=== PATIENT | female | born 1945 | race Caucasian/White ===

== ENCOUNTER → 2016-09-11 | Outpatient (CLI) | payer OTHER ==
[~2016-09-11] MED LIST: ALBUAER2 INH; ATOR10TA88 PO; CETI10TA10 PO; CHOL1CAP57 PO; CITA20TA4 PO; CYAN100020 PO; CYCL5TAB PO; EPP3/2 IM; FLUT0.0529; FLUT1INH7 INH; GARL1TAB8; LEVO100T PO; LISI-793 PO; METR1GEL3 TOP; MONT1TAB5 PO; MULT-845 PO; NPHA; OMEP20CA9 PO; [UNRECOGNIZED DRUG - OTHER] OPB
--- NOTE | 2016-09-11 16:12 | MAMMOGRAPHY REPORT ---
BILATERAL DIGITAL SCREENING MAMMOGRAM WITH CAD: 09/11/2016 CLINICAL HISTORY: Routine screening. Patient has no complaints. TECHNIQUE: Current study was also evaluated with a Computer Aided Detection (CAD) system. Bilatera l CC and MLO views were obtained. COMPARISON: Comparison is made to exams dated: 02/23/2015 mammogram, 08/02/2012 mammogram, 08/12/2011 mammogram, 07/30/2011 mammogram, 07/29/2010 mammogram, and 07/25/2009 mammogram - [facility]. BREAST COMPOSITION: There are scattered areas of fibroglandular density in both breasts. FINDINGS: No suspicious masses, calcifications, or areas of architectural distortion are noted in e ither breast. There has been no significant interval change compared to prior exams. Bilateral haja gn appearing calcifications are again noted. A biopsy marker clip is again noted in the left upper outer quadrant. IMPRESSION: ACR BI-RADS CATEGORY 2: BENIGN There is no mammographic evidence of malignancy. A 1 year screening mammogram is recommended. The p atient will receive written notification of the results. Approximately 10% of breast cancers are not detected with mammography. A negative mammographic repor t should not delay biopsy if a clinically suggestive mass is present. Lizette Hsu M.D. /:09/11/2016 14:41:47 Therapeutic Recreation Leader: Karina MIRANDA(Seb)(Cailin)([place]), [facility] letter sent: Normal 1/2 BI-RADS Code: ACR BI-RADS Category 2: Benign
== END | disposition home or self-care (01) ==
LOC: C.MAMM 13:49
PROVIDERS: ATTEND Family Medicine
DX: Z12.31 Encounter for screening mammogram for malignant neoplasm of breast (principal)

== ENCOUNTER → 2017-02-10 | Outpatient (CLI) | payer OTHER ==
[~2017-02-10] MED LIST changes: +ATOR10TA82 PO; -ATOR10TA88 PO; -MULT-845 PO; -[UNRECOGNIZED DRUG - OTHER] OPB
--- NOTE | 2017-02-10 11:03 | DIAGNOSTIC IMAGING REPORT ---
MRI OF THE CERVICAL SPINE WITHOUT CONTRAST CLINICAL HISTORY: Cervical radiculopathy. Neck pain radiating into both upper extremities. COMPARISON: Cervical spine radiographs October 14, 2013. TECHNIQUE: Utilizing a 1.5 Andreea magnet and dedicated coil, multiplanar, multiecho imaging of the cervical spine was performed without IV contrast. FINDINGS: Alignment of the cervical spine is anatomic. Vertebral body heights are maintained. There is no intracanalicular mass or fluid collection. Cervical cord signal and caliber are normal. Visualized portions of the posterior fossa are unremarkable. Paravertebral soft tissues are unremarkable. A 1.4 cm T2 hyperintense posterior left first rib lesion is indeterminate although may reflect a hemangioma. C2-C3: The central canal and neural foramen are patent. C3-C4: There is mild disc bulge. There is minimal narrowing of the central canal. There is mild narrowing of the right neural foramen due to facet arthrosis. C4-C5: There is minimal disc bulge with a tiny central disc protrusion. There is minimal narrowing of the central canal. There is mild narrowing of both neural foramen. C5-C6: There is disc bulge with osteophyte formation. There is mild narrowing of the central canal. There is severe right and moderate left neural foraminal stenosis due to facet arthrosis and uncovertebral hypertrophy. C6-C7: There is disc bulge. There is mild narrowing of the central canal. There is mild narrowing of both neural foramen. C7-T1: Central canal and neural foramen are patent. IMPRESSION: 1. Mild multilevel central canal stenosis as described above due to disc bulges with osteophyte formation. 2. Normal cervical cord signal and caliber. 3. Moderate to severe bilateral neural foraminal stenosis at C5-C6. Electronically signed by: Devyn Beyer M.D. 02/10/2017 11:02 AM Dictated Date/Time: 02/10/2017 10:53 AM
== END | disposition home or self-care (01) ==
PROVIDERS: ATTEND Physician Assistant Medical
DX: M54.12 Radiculopathy, cervical region (principal)

== ENCOUNTER → 2017-09-10 | Outpatient (CLI) | payer OTHER ==
[~2017-09-10] MED LIST changes: -CETI10TA10 PO; -GARL1TAB8; -LEVO100T PO
[2017-09-10 12:47] LABS: ALBUMIN 4.1 gm/dl (3.4-5.0); ALT/SGPT 47 U/L (12-78); BLOOD UREA NITROGEN 13 mg/dl (7-18); CARBON DIOXIDE 24 mmol/L (21-32); CHOLESTEROL 217 mg/dl (0-200); CREATININE 0.85 mg/dl (0.60-1.20); GLUCOSE 91 mg/dl (70-99); POTASSIUM 4.1 mmol/L (3.5-5.1); SODIUM 136 mmol/L (136-145)
[2017-09-10 12:58] LABS: ALKALINE PHOSPHATASE 76 U/L (45-117); AST/SGOT 56 U/L (15-37); LDL CHOLESTEROL CALCULATED 125 mg/dl; TOTAL PROTEIN 7.3 gm/dl (6.4-8.2)
== END | disposition home or self-care (01) ==
LOC: C.LABBFT 08:55
PROVIDERS: ATTEND Internal Medicine
DX: Z00.00 Encounter for general adult medical examination without abnormal findings (principal); E03.9 Hypothyroidism, unspecified; E78.5 Hyperlipidemia, unspecified; I10 Essential (primary) hypertension; E55.9 Vitamin D deficiency, unspecified

== ENCOUNTER → 2017-09-14 | Outpatient (CLI) | payer OTHER ==
--- NOTE | 2017-09-15 07:51 | MAMMOGRAPHY REPORT ---
BILATERAL DIGITAL SCREENING MAMMOGRAM TOMOSYNTHESIS WITH CAD: 09/14/2017 CLINICAL HISTORY: Routine screening. Patient has no complaints. TECHNIQUE: Breast tomosynthesis in addition to standard 2D mammography was performed. Current study was also evaluated with a Computer Aided Detection (CAD) system. COMPARISON: Comparison is made to exams dated: 09/11/2016 mammogram, 02/23/2015 mammogram, 08/02/2012 m ammogram, 08/12/2011 mammogram, 07/30/2011 mammogram, and 07/29/2010 mammogram - [facility]. BREAST COMPOSITION: There are scattered areas of fibroglandular density in both breasts. FINDINGS: There are diffuse bilateral benign coarse and rim calcifications in the breasts. Stable me tallic biopsy marker in the left upper outer quadrant. No suspicious mass, architectural distortion or cluster of suspicious microcalcifications is seen. IMPRESSION: ACR BI-RADS CATEGORY 1: NEGATIVE There is no mammographic evidence of malignancy. A 1 year screening mammogram is recommended. The pa tient will receive written notification of the results. Approximately 10% of breast cancers are not detected with mammography. A negative mammographic report should not delay biopsy if a clinically suggestive mass is present. Griselda Roldan M.D. ay/:09/14/2017 16:54:43 Wool Spotter: Crystal Li, [facility] letter sent: Normal 1/2 BI-RADS Code: ACR BI-RADS Category 1: Negative
== END | disposition home or self-care (01) ==
LOC: C.MAMM 13:13
PROVIDERS: ATTEND Internal Medicine
DX: Z12.31 Encounter for screening mammogram for malignant neoplasm of breast (principal)

== ENCOUNTER 2022-05-19 08:06 | Inpatient (IN) ==
--- NOTE | 2022-04-29 16:17 | PAT Medication Instructions ---
Medication Instructions Date of Service April 29, 2022 Home Medications Medication Instructions Recorded baclofen 10 mg tablet 10 mg PO Q8H PRN pain/spasm #60 08/13/ tabs albuterol sulfate 90 mcg/actuation 2 puff inhalation Q6H PRN 11/26/21 aerosol inhaler shortness of breath or wheezing #8.5 grams oxycodone-acetaminophen 5 mg-325 1 - 2 tab PO Q6H PRN pain #15 tabs 01/27/ mg tablet (Percocet) cetirizine 10 mg tablet (Zyrtec) 5 mg PO QAM cyanocobalamin (vitamin B-12) 1,000 mcg tablet (Vitamin B-12) 1,000 mcg PO QAM epinephrine 0.3 mg/0.3 mL injection, auto-injector (EpiPen) 0.3 mg IM Q3H PRN omeprazole 20 mg tablet,delayed release 20 mg PO QAM naphazoline 0.025 %-pheniramine 0.3 % eye drops 1 drp ophthalmic (eye) UD PRN cholecalciferol (vitamin D3) 25 mcg (1,000 unit) capsule (Vitamin D3) 1,000 unit PO QAM baclofen 10 mg tablet 10 mg PO Q8H PRN metronidazole 0.75 % topical gel 1 applic topical QAM albuterol sulfate 90 mcg/actuation aerosol inhaler 2 puff inhalation Q6H PRN oxycodone-acetaminophen 5 mg-325 mg tablet (Percocet) 1 - 2 tab PO Q6H PRN benzonatate 100 mg capsule 100 - 200 mg PO TID PRN citalopram 20 mg tablet 20 mg PO QAM fluticasone furoate 100 mcg-vilanterol 25 mcg/dose inhalation powder 1 ea inhala tion QAM fluticasone propionate 50 mcg/actuation nasal spray,suspension (Flonase Allergy Relief) 1 spray intranasal BID levothyroxine 88 mcg tablet 88 mcg PO QAM lisinopril 30 mg tablet 30 mg PO QAM montelukast 10 mg tablet 10 mg PO QAM rosuvastatin 10 mg tablet (Crestor) 10 mg PO HS Continue as directed epinephrine 0.3 mg/0.3 mL injection, auto-injector (EpiPen) 0.3 mg IM Q3H PRN(if needed) STOP taking 24 hours before surgery metronidazole 0.75 % topical gel 1 applic topical QAM DO NOT take the morning of surgery cetirizine 10 mg tablet (Zyrtec) 5 mg PO QAM cyanocobalamin (vitamin B-12) 1,000 mcg tablet (Vitamin B-12) 1,000 mcg PO QAM cholecalciferol (vitamin D3) 25 mcg (1,000 unit) capsule (Vitamin D3) 1,000 unit PO QAM baclofen 10 mg tablet 10 mg PO Q8H PRN benzonatate 100 mg capsule 100 - 200 mg PO TID PRN lisinopril 30 mg tablet 30 mg PO QAM montelukast 10 mg tablet 10 mg PO QAM Take morning of surgery With a small sip of water, OTHERWISE NOTHING TO EAT OR DRINK AFTER MIDNIGHT: omeprazole 20 mg tablet,delayed release 20 mg PO QAM naphazoline 0.025 %-pheniramine 0.3 % eye drops 1 drp ophthalmic (eye) UD PRN(if needed) albuterol sulfate 90 mcg/actuation aerosol inhaler 2 puff inhalation Q6H PRN(use if needed; please bring with you to hospital day of surgery if possible) oxycodone-acetaminophen 5 mg-325 mg tablet (Percocet) 1 - 2 tab PO Q6H PRN(if needed) citalopram 20 mg tablet 20 mg PO QAM fluticasone furoate 100 mcg-vilanterol 25 mcg/dose inhalation powder 1 ea inhal ation QAM fluticasone propionate 50 mcg/actuation nasal spray,suspension (Flonase Allergy Relief) 1 spray intranasal BID levothyroxine 88 mcg tablet 88 mcg PO QAM Take evening before surgery baclofen 10 mg tablet 10 mg PO Q8H PRN(if needed) albuterol sulfate 90 mcg/actuation aerosol inhaler 2 puff inhalation Q6H PRN(if needed) oxycodone-acetaminophen 5 mg-325 mg tablet (Percocet) 1 - 2 tab PO Q6H PRN(if needed) benzonatate 100 mg capsule 100 - 200 mg PO TID PRN(if needed) fluticasone propionate 50 mcg/actuation nasal spray,suspension (Flonase Allergy Relief) 1 spray intranasal BID rosuvastatin 10 mg tablet (Crestor) 10 mg PO HS Other Notes If you have any questions please call us at [phone] or [phone] or [phone] or [phone]
--- NOTE | 2022-05-06 11:26 | Anesthesiology Consultation ---
Date of Service May 06, 2022 Assessment & Plan (1) Encounter for pre-operative examination: - COVID screening: Per assessment on 05/06/2022: Travel screen negative, no known COVID-19 positive contacts or current COVID-19 related symptoms in past 2 weeks. Pt vaccinated. To surgeon's discretion if preop COVID testing needed. Chart Review Chart Review: Acceptable Risk for Surgery and Patient seen in Pre Admission Testing Teaching & Discussion Pre-Anesthesia Teaching/Discussion Notes: Instructed NPO after midnight before surgery, except medications with 15 cc of water. Medication instructions provided according to the PAT guidelines. History Surgery Operation Date: 05/19/22 10:35 Proposed Procedures p C6-C7 Anterior Cervical Discectomy and Fusion, C5 Corpectomy, Spinal Cord Monitoring - Yves Serrano DO Height/Weight Height: 5 ft 3 in Weight: 77.111 kg Allergies Allergy/AdvReac Type Severity Reaction Status Date / Time adhesive Allergy Intermediate TAPE ON Verified 04/29/22 13:18 EYES CAUSED "EYES TO SWELL SHUT" aspirin Allergy Unknown MAKES HER Verified 04/29/22 13:18 SHAKE shrimp Allergy Unknown UNKNOWN Verified 04/29/22 13:18 celecoxib [From Celebrex] AdvReac Mild GI bleed Verified 05/06/22 12:02 Unclassified Drugs Allergy Intermediate Venison-causes Uncoded 04/29/22 13:18 hives Medications Home Medications Medication Instructions Recorded Confirmed Last Taken cetirizine 10 mg tablet (Zyrtec) 5 mg PO QAM 09/26/18 04/29/22 Unknown cyanocobalamin (vitamin B-12) 1,000 mcg PO QAM 09/26/18 04/29/22 Unknown 1,000 mcg tablet (Vitamin B-12) epinephrine 0.3 mg/0.3 mL 0.3 mg IM Q3H PRN Allergic Reaction 09/26/18 04/29/22 Unknown injection, auto-injector (EpiPen) omeprazole 20 mg tablet,delayed 20 mg PO QAM 09/26/18 04/29/22 Unknown release naphazoline 0.025 %-pheniramine 1 drp ophthalmic (eye) UD PRN 1 07/31/19 04/29/22 Unknown 0.3 % eye drops cholecalciferol (vitamin D3) 25 1,000 unit PO QAM 04/18/20 04/29/22 Unknown mcg (1,000 unit) capsule (Vitamin D3) baclofen 10 mg tablet 10 mg PO Q8H PRN pain/spasm #60 08/13/21 04/29/22 Unknown tabs metronidazole 0.75 % topical gel 1 applic topical QAM 11/19/21 04/29/22 Unknown albuterol sulfate 90 mcg/actuation 2 puff inhalation Q6H PRN 11/26/21 04/29/22 Unknown aerosol inhaler shortness of breath or wheezing #8.5 grams oxycodone-acetaminophen 5 mg-325 1 - 2 tab PO Q6H PRN pain #15 tabs 01/27/22 04/29/22 Unknown mg tablet (Percocet) benzonatate 100 mg capsule 100 - 200 mg PO TID PRN cough 04/29/22 04/29/22 Unknown citalopram 20 mg tablet 20 mg PO QAM 04/29/22 04/29/22 Unknown fluticasone furoate 100 1 ea inhalation QAM 04/29/22 04/29/22 Unknown mcg-vilanterol 25 mcg/dose inhalation powder fluticasone propionate 50 1 spray intranasal BID 04/29/22 04/29/22 Unknown mcg/actuation nasal spray,suspension (Flonase Allergy Relief) levothyroxine 88 mcg tablet 88 mcg PO QAM 04/29/22 04/29/22 Unknown lisinopril 30 mg tablet 30 mg PO QAM 04/29/22 04/29/22 Unknown montelukast 10 mg tablet 10 mg PO QAM 04/29/22 04/29/22 Unknown rosuvastatin 20 mg tablet 20 mg PO DAILY #90 tabs 05/07/22 Unknown Past Medical History Medical History (Updated 05/06/22 @ 12:08 by Melissa Lou PA-C) Actinic keratosis Asthma maintenance inhaler-rescue inhaler use occasional during seasonal exacerbations-last rescue inhaler use 02/2022 Cervical facet syndrome Cervicalgia Chronic low back pain Chronic reflux esophagitis Claustrophobia with full mask Depression Diverticulosis of colon Essential tremor Hx of gastric ulcer treated Hyperlipidemia Hypertension controlled, stable per pt Hypothyroidism Malignant melanoma of skin lt. upper shoulder-removed Rosacea Seborrheic keratosis Tubular adenoma of colon Patient denies h/o stroke, seizures, heart attack, heart failure, DM, blood clots or blood transfusions. Exercise / Class Metabolic Activity II 4-5 Yardwork/Stairs/Walk up hill (denies CP or SOB with 1 FOS) Past Family History Family History Father Heart disease Mother Stroke syndrome Past Surgical History Surgical History (Updated 05/06/22 @ 12:07 by Melissa Lou PA-C) H/O breast surgery R duct repair-denies limb restriction H/O cataract extraction Bilateral History of carpal tunnel release of both wrists History of colectomy Sigmoid History of esophagogastroduodenoscopy (EGD) History of hernia repair X3 History of hysterectomy History of lymph node dissection of left axilla History of tonsillectomy Hx of colonoscopy S/P medial meniscal repair R knee Past Anesthesia History No Hx of Anesthesia Complications and No Family Hx of Anesthesia Complications History of PONV No Hx of Motion Sickness and History of PONV (with surgeries > 40 yrs ago) Social History Smoking Status: Never smoker Do You Dip or Chew Tobacco: No Hx Alcohol Use: No Hx Substance Use: No substance use type: does not use Review of Systems Snoring, denies witnessed apneas. Patient denies chest pain, shortness of breath, dyspnea on exertion, fever, chills, cough, wheezing, or palpitations. Physical Exam Vital Signs Vitals BP 109/65 P 61 TEMP 98.2 SP02 98% on RA RESP 17 Physical Limited cervical extension range of motion without pain TMD 3.5 finger breadths Mallampati Score 1 Dentition: intact, pt unsure of chipped teeth; denies loose teeth, caps/crowns, implants or bridges Lungs: normal respiratory effort. Clear throughout to auscultation, no adventitious breath sounds Cardiac: regular rate and rhythm, no murmurs noted Carotid arteries: negative bruit bilat Lab Results Anesthesia Preop Results Results Anesthesia Widget: WBC 9.77 K/ul (4.8-10.8) 05/06/22 Hgb 14.6 g/dl (12.0-16.0) 05/06/22 Hct 43.0 % (34.1-44.9) 05/06/22 Plt 288 K/uL (130-400) 05/06/22 Na 133 mmol/L (136-145) L 05/06/22 K 4.4 mmol/L (3.5-5.1) 05/06/22 Cl 101 mmol/L (98-107) 05/06/22 CO2 23 mmol/L (21-32) 05/06/22 BUN 15 mg/dl (6-23) 05/06/22 Creat 0.84 mg/dl (0.6-1.2) 05/06/22 Glucose Level 94 mg/dl (70-99(Fasting)) 05/06/22 PT 11.1 Seconds (9.0-12.0) 05/06/22 PTT 26.3 Seconds (21.0-31.0) 05/06/22 INR 1.0 (0.9-1.1) 05/06/22 Urine Color Yellow 05/06/22 Urine Appearance Clear (Clear) 05/06/22 Urine pH 5.5 (4.5-7.5) 05/06/22 Urine Specific [place] 1.013 (1.000-1.030) 05/06/22 Urine Protein Negative (Negative) 05/06/22 Urine Glucose (UA) Negative (Negative) 05/06/22 Urine Ketones Negative (Negative) 05/06/22 Urine Blood Negative (Negative) 05/06/22 Urine Nitrite Negative (Negative) 05/06/22 Urine Bilirubin Negative (Negative) 05/06/22 Urine Urobilinogen Negative (Negative) 05/06/22 Urine Leukocyte Esterase Negative (Negative) 05/06/22 Blood Type O Positive 05/06/22 Antibody Screen NEGATIVE 05/06/22 Testing Electrocardiogram Date: 05/06/22 NSR, rate 63 bpm Chest X-Ray Date: 05/06/22 PA and lateral chest radiographs are compared to study dated 12/13/2014. The heart is top normal for projection atherosclerotic calcification of the thoracic aorta. The pulmonary vasculature is noncongested. Chronic interstitial thickening is similar to previous. There is bibasilar scarring/atelectasis. No airspace consolidation or pleural effusion is identified. There is no pneumothorax. The skeletal structures are osteopenic. The bony thorax appears intact. IMPRESSION: No active disease in the chest. Cervical Spine Date: 04/22/22 MRI There is grade 1 anterolisthesis of C4-C5. C2-C3: Unremarkable. C3-C4: There is facet arthropathy and a small broad-based posterior disc bulge resulting in mild bilateral neural foraminal stenosis. C4-C5: Small posterior disc bulge and anterolisthesis results in moderate canal stenosis, AP diameter 8 mm, with moderate to severe bilateral neuroforaminal stenosis. C5-C6: Broad-based posterior disc bulge results in moderate canal stenosis, AP diameter 8 mm. There is severe bilateral neuroforaminal stenosis. C6-C7: Broad-based posterior disc bulge results in moderate canal stenosis, AP diameter 8 mm. There is moderate bilateral neuroforaminal stenosis. C7-T1: Unremarkable. The spinal ligaments are intact, without evidence of disruption or abnormal signal intensity. The spinal cord is normal in signal intensity and there is no evidence of cord edema. There is no evidence of an extradural, intradural, ex tramedullary or intramedullary lesion. Visualized soft tissues are normal. Visualized brain parenchyma is normal. Multilevel degenerative changes without a moderate canal stenosis and severe bilateral neuroforaminal stenosis. Overall findings are minimally progressed from prior exam.
[~2022-05-19 08:06] MED LIST changes: +ACETAMINOPHEN 500 MG TAB PO SCH; -ALBUAER2 INH; -ATOR10TA82 PO; -CHOL1CAP57 PO; -CITA20TA4 PO; -CYAN100020 PO; -CYCL5TAB PO; -EPP3/2 IM; -FLUT0.0529; -FLUT1INH7 INH; +GABAPENTIN 300 MG CAP PO SCH; -LISI-793 PO; +LR 15ML/HR IV SCH; -METR1GEL3 TOP; -MONT1TAB5 PO; -NPHA; -OMEP20CA9 PO; +PROPOFOL IV EMULSION 10 MG/ML 100 ML VIAL IV ONE; +ceFAZolin 1000MG 1,000 MG/7.5 ML SYR IV SCH; +ceFAZolin 330 MG/ML 1 GM VIAL ONE
[2022-05-19] MEDS ORDERED: fentaNYL citrate 100 MCG/2 ML VIAL ONE ×3 (08:08→11:23)
[2022-05-19] MEDS ORDERED: LIDOCAINE 2% MPF LOCAL 5 ML VIAL INFIL ONE (08:08)
[2022-05-19] MEDS ORDERED: DEXAMETHASONE SOD INJ 4 MG/ML VIAL ONE (08:08)
[2022-05-19] MEDS ORDERED: ONDANSETRON INJ 2 MG/ML 2 ML VIAL ONE (08:08)
[2022-05-19] MEDS ORDERED: PROPOFOL IV EMULSION 10 MG/ML 20 ML VIAL IV ONE (08:08)
--- NOTE | 2022-05-19 09:23 | History & Physical Bridge Note ---
Date of Service May 19, 2022 History & Physical Bridge Note I have examined the patient, reviewed the History & Physical and in the interval since the performance of the History & Physical I have noted the following changes of clinical significance: no changes noted
--- NOTE | 2022-05-19 09:24 | History & Physical Report ---
Date of Service May 19, 2022 Assessment & Plan (1) Myelopathy concurrent with and due to spinal stenosis of cervical region: Plan: C6-C7 anterior cervical discectomy and fusion, C5 corpectomy History of Present Illness Chief Complaint: Neck and arm pain Primary Care Provider: Dayna Beyer MD This is a 68-year-old female presents above-mentioned diagnosis after failed course of nonoperative care is here for surgical invention. Allergies Allergy/AdvReac Type Severity Reaction Status Date / Time shrimp Allergy Severe Hives Verified 05/19/22 08:43 adhesive Allergy Intermediate TAPE ON Verified 05/19/22 08:42 EYES CAUSED "EYES TO SWELL SHUT" aspirin Allergy Unknown MAKES HER Verified 05/19/22 08:42 SHAKE prednisone AdvReac Severe Verified 05/19/22 08:42 celecoxib [From Celebrex] AdvReac Mild GI bleed Verified 05/19/22 08:42 Unclassified Drugs Allergy Intermediate Venison-causes Uncoded 05/19/22 08:42 hives Home Medications Medication Instructions Recorded Confirmed Type cetirizine 10 mg tablet (Zyrtec) 5 mg PO QAM 09/26/18 05/19/22 History cyanocobalamin (vitamin B-12) 1,000 mcg PO QAM 09/26/18 05/19/22 History 1,000 mcg tablet (Vitamin B-12) epinephrine 0.3 mg/0.3 mL 0.3 mg IM Q3H PRN Allergic Reaction 09/26/18 05/19/22 History injection, auto-injector (EpiPen) omeprazole 20 mg tablet,delayed 20 mg PO QAM 09/26/18 05/19/22 History release naphazoline 0.025 %-pheniramine 1 drp ophthalmic (eye) UD PRN 1 07/31/19 05/19/22 History 0.3 % eye drops cholecalciferol (vitamin D3) 25 1,000 unit PO QAM 04/18/20 05/19/22 History mcg (1,000 unit) capsule (Vitamin D3) baclofen 10 mg tablet 10 mg PO Q8H PRN pain/spasm #60 08/13/21 05/19/22 Rx tabs metronidazole 0.75 % topical gel 1 applic topical QAM 11/19/21 05/19/22 History albuterol sulfate 90 mcg/actuation 2 puff inhalation Q6H PRN 11/26/21 05/19/22 Rx aerosol inhaler shortness of breath or wheezing #8.5 grams oxycodone-acetaminophen 5 mg-325 1 - 2 tab PO Q6H PRN pain #15 tabs 01/27/22 05/19/22 Rx mg tablet (Percocet) benzonatate 100 mg capsule 100 - 200 mg PO TID PRN cough 04/29/22 05/19/22 History citalopram 20 mg tablet (Celexa) 20 mg PO QAM 04/29/22 05/19/22 History fluticasone furoate 100 1 ea inhalation QAM 04/29/22 05/19/22 History mcg-vilanterol 25 mcg/dose inhalation powder fluticasone propionate 50 1 spray intranasal BID 04/29/22 05/19/22 History mcg/actuation nasal spray,suspension (Flonase Allergy Relief) levothyroxine 88 mcg tablet 88 mcg PO QAM 04/29/22 05/19/22 History lisinopril 30 mg tablet 30 mg PO QAM 04/29/22 05/19/22 History montelukast 10 mg tablet 10 mg PO QAM 04/29/22 05/19/22 History (Singulair) rosuvastatin 20 mg tablet (Crestor) 20 mg PO DAILY 05/19/22 05/19/22 History Past Med/Surg History Medical History (Updated 05/19/22 @ 09:24 by Yves Serrano DO) Actinic keratosis Asthma maintenance inhaler-rescue inhaler use occasional during seasonal exacerbations-last rescue inhaler use 02/2022 Cervical facet syndrome Cervicalgia Chronic low back pain Chronic reflux esophagitis Claustrophobia with full mask Depression Diverticulosis of colon Essential tremor Hx of gastric ulcer treated Hyperlipidemia Hypertension controlled, stable per pt Hypothyroidism Malignant melanoma of skin lt. upper shoulder-removed Rosacea Seborrheic keratosis Tubular adenoma of colon Surgical History H/O breast surgery R duct repair-denies limb restriction H/O cataract extraction Bilateral History of carpal tunnel release of both wrists History of colectomy Sigmoid History of esophagogastroduodenoscopy (EGD) History of hernia repair X3 History of hysterectomy History of lymph node dissection of left axilla History of tonsillectomy Hx of colonoscopy S/P medial meniscal repair R knee Family History (Updated 05/12/22 @ 16:26 by Joie Jackson LPN) Father Heart disease Mother Stroke syndrome Asthma Cerebral aneurysm Aunt Ovarian cancer Denies family history of Prostate cancer Coronary heart disease Breast cancer Lung disease Social History Smoking Status: Never smoker Second Hand Exposure: Yes; Do You Dip or Chew Tobacco: No; Tobacco Cessation Education Requested by Patient: No Hx Alcohol Use: No Hx Substance Use: No Preferred Language: Maltese Communication Ability: Effective Legislators Required: No Beliefs That Will Affect Care: None Current Living Situation: Spouse Other Information That Helps Us Care for You: No Feels Safe at Home: Yes Safety Concerns: Feels Safe At This Time caffeine: Yes Physical Activity Frequency: Daily Physical Activity Frequency Comment: Active deep breathing, walking, stretching Seatbelt Use: always Sunscreen Use: Yes (Protective clothing/covering ) Assistive Devices: Glasses Assistive Devices Comment: walker/electric scooter for long distances only Physical Exam Physical Exam: Patient is alert and oriented Heart regular rhythm Lungs clear Results & Data Results & Data ([facility]) Vital Signs (Past 12 Hours) Vital Signs Temp Pulse Resp BP Pulse Ox O2 Del Method 05/19/22 08:51 37.1 C 76 18 157/84 H 97 Room Air
[2022-05-19] MEDS ORDERED: DEXAMETHASONE SOD INJ 4 MG/ML VIAL IV PRN (09:50)
[2022-05-19] MEDS ORDERED: METOCLOPRAMIDE HCL INJ 5 MG/ML 2 ML VIAL IV PRN ×2 (09:50→13:57)
[2022-05-19] MEDS ORDERED: ATROPINE SULFATE 0.1 MG/ML 10ML SYR IV PRN (09:50)
[2022-05-19] MEDS ORDERED: ePHEDrine sulfate 50 MG/ML AMP IV PRN (09:50)
[2022-05-19] MEDS ORDERED: FLOSEAL HEMOSTATIC MATRIX 10ML TOP ONE (10:28)
[2022-05-19] MEDS ORDERED: NEOSTIGMINE METHYLSULFATE 1 MG/ML 10ML VIAL ONE (10:59)
[2022-05-19] MEDS ORDERED: GLYCOPYRROLATE 0.2 MG/ML VIAL ONE (10:59)
--- NOTE | 2022-05-19 11:26 | Operative Report ---
Post Operative Report Pre & Post Diagnosis Operation Date: 05/19/22 10:05 Pre-Op Diagnosis: Cervical spinal stenosis with myeloradiculopathy Post-Op Diagnosis: Same I identified the patient and participated in the time-out.: Yes Procedure Operation Date: 05/19/22 10:05 Actual Procedures #1 anterior cervical corpectomy with bilateral foraminotomies C5. #2 anterior cervical discectomy with bilateral foraminotomies C6-C7. #3 placement of 21 mm peek cage at C4-C6 and 7 mm cage at C6-C7. #4 placement locally harvested morselized autograft combined with I factor in the interbody cages. #5 application of 5 complete and screws from C4-C7. Surgeon Yves Serrano, Armature Tester Aleta Yan Estimated Blood Loss 10 Findings Consistent with Post-Op Diagnosis Specimens None Indications This is a 77-year-old female presents with above-mentioned diagnosis after failed course of nonoperative care is here for the moment procedure. Description of Procedure Patient met with identified informed consent obtained. Patient was then taken to the operative suite underwent ablation placed in a supine position adjustable head [place] quality head. All bony prominences well-padded eyes inspected to ensure no external pressure placed upon the. This point anterior cervical spine was prepped and draped no sterile fashion. With assistance of fluoroscopy identified the C5-6 disc base and a transverse incision was placed along the right anterior aspect of the cervical spine overlying this region. Blunt dissection with assistance of bipolar electrocautery performed down to expose the anterior cervical spine from C4-C7. Self-retaining retractors placed. Then performed a complete discectomy of C4-C5 out to the uncovertebral joints bilaterally followed by C5-C6. [place] distracting pins were then placed in C4 and C6 to distract across the C5 vertebral body. A complete corpectomy of C5 was then performed including bilateral foraminotomies. Endplates were then burred to subcortical bleeding bone and a 21 mm peek cage filled with I factor and locally harvested morselized autograft tapped in position. Then proceeded to C6-C7. Again [place] distracting pins utilized to assist in visualization. Complete discectomy was performed to the uncovertebral joints bilaterally. Selwyn wongn performed bilateral foraminotomies and removed all posterior annular fibers and longitudinal ligament. Endplates burred to subcortical bleeding bone and 7 mm peek cage filled with I factor and locally harvested morselized autograft tapped in position. Distracting apparatus was removed and a 5 complete screws applied with the assistance of fluoroscopy. The incision was then copiously irrigated explored to ensure no damage to surrounding structures remaining bleeding. 10 round CARI drain inserted. The incision was then closed with 2 Vicryl in a fashion of 4 Monocryl for fascial closure. Steri-Strip sterile dressings placed. Patient will continue PACU stable condition. Please note spinal cord monitoring was utilized at the procedure no changes noted. Lastly Aleta Yan was present out the entire surgeon while the patient positioning complex portions of the surgery and fascial closure. I attest to the content of the Intraoperative Record and any orders documented therein. Any exceptions are noted below.
[2022-05-19] MEDS: HYDROmorphone INJ 2 MG/ML SYR/VIAL IV PRN ×4 (12:00→12:55)
--- NOTE | 2022-05-19 12:35 | Fluoroscopy Report ---
FL cervical 2-3V CLINICAL HISTORY: ACDF C4-7 C5 CORPECTOMY COMPARISON STUDY: None. FLUOROSCOPY TIME: 11 seconds. FINDINGS: 3 fluoroscopic spot images of the cervical spine demonstrate anterior cervical discectomy a nd fusion from C4 through C7 with a C5 corpectomy and bone graft. Hardware appears intact. There is a surgical sponge noted at the incision site within the anterior neck IMPRESSION: Fluoroscopic assistance provided for C4-C7 ACDF. ACT 112: Negative or not required by law. Electronically signed by: Fareed Bradley M.D. 05/19/2022 12:34 PM
--- NOTE | 2022-05-19 13:09 | Anesthesiology Progress Note ---
Date of Service May 19, 2022 Anesthesia Post Procedure Vital Signs Vital Signs: Temp Pulse Resp BP Pulse Ox O2 Del Method O2 Flow Rate 05/19/22 12:55 67 13 146/61 H 95 Nasal Cannula 2 05/19/22 12:45 69 15 146/66 H 94 Nasal Cannula 2 05/19/22 12:35 72 17 152/72 H 95 Nasal Cannula 2 05/19/22 12:25 68 15 156/75 H 94 Nasal Cannula 2 05/19/22 12:15 69 16 162/85 H 93 Nasal Cannula 2 05/19/22 11:55 68 15 179/105 H 98 Oxymask 6 05/19/22 11:45 76 19 184/91 H 97 Oxymask 10 05/19/22 12:05 70 18 177/88 H 98 Oxymask 6 05/19/22 11:37 36.5 C 79 16 160/103 H 95 Oxymask 10 05/19/22 08:51 37.1 C 76 18 157/84 H 97 Room Air Pain Intensity Right Shoulder: Pain Intensity: 3 Neck: Pain Intensity: 4 Transfer of Care Handoff Completed per policy Notes Mental Status: alert / awake / arousable and participated in evaluation Patient Amnestic to Procedure: Yes Nausea / Vomiting: adequately controlled Pain: adequately controlled Airway Patency, RR, SpO2: stable & adequate BP & HR: stable & adequate Hydration State: stable & adequate Anesthetic Complications: no major complications apparent and Pt Satisfied with anesthetic care
[2022-05-19] MEDS ORDERED: RACEPINEPHRINE 2.25% NEBU SOLN 0.5 ML VIAL INH PRN (13:57)
[2022-05-19] MEDS ORDERED: ALBUTEROL HFA 8 GM INHALER INH PRN (13:57)
[2022-05-19] MEDS ORDERED: BACLOFEN 10 MG TAB PO PRN (13:57)
[2022-05-19] MEDS ORDERED: HYDROmorphone INJ 1 MG/ML SYRINGE IV PRN (13:57)
[2022-05-19] MEDS ORDERED: FAMOTIDINE 20 MG TAB PO PRN (13:57)
[2022-05-19] MEDS ORDERED: dexAMETHasone 8 MG in SYRINGE 0 ML IV PRN (13:57)
[2022-05-19] MEDS ORDERED: ACETAMINOPHEN 1,000 MG/100 ML VIAL IV PRN (13:57)
[2022-05-19] MEDS ORDERED: ONDANSETRON INJ 2 MG/ML 2 ML VIAL IV PRN (13:57)
[2022-05-19] MEDS ORDERED: NALOXONE HCL 0.4 MG/1 ML VIAL/CARP IV PRN (13:57)
[2022-05-19] MEDS ORDERED: MAGNESIUM HYDROXIDE SUSP 30 ML UDC PO PRN (13:57)
[2022-05-19] MEDS ORDERED: HYDROmorphone INJ 0.5 MG/0.5 ML SYR IV PRN (13:57)
[2022-05-19] MEDS ORDERED: hydrOXYzine HCl 25 MG TAB PO PRN (13:57)
[2022-05-19] MEDS ORDERED: PROMETHAZINE HCL 12.5 MG in SODIUM CHLORIDE 0.9% 50 ML IV PRN (13:57)
[2022-05-19] MEDS ORDERED: bisacodyL 10 MG SUPP PR PRN (13:57)
[2022-05-19] MEDS ORDERED: traMADol HCL 50 MG TABLET PO PRN (13:57)
[2022-05-19] MEDS ORDERED: NAPHAZOLIN/PHENIRAMIN OPH SOLN 75 DROPS/5 ML BTL OP PRN (13:57)
[2022-05-19] MEDS ORDERED: LORazepam 0.5 MG TAB PO PRN (13:57)
[2022-05-19] MEDS ORDERED: diphenhydrAMINE Capsule 25 MG CAP PO PRN (13:57)
[2022-05-19] MEDS ORDERED: LORazepam 0.5 MG in SYRINGE 0.25 ML IV PRN (13:57)
[2022-05-19] MEDS ORDERED: BENZONATATE 100 MG CAPSULE PO PRN (13:57)
[2022-05-19] MEDS ORDERED: SOD PHOSPHATE/SOD BIPHOSPHATE ENEMA 132 ML BTL PR PRN (13:57)
[2022-05-19] MEDS ORDERED: ALUMINUM/MAGNESIUM SUSP 30 ML UDC PO PRN (13:57)
[2022-05-19] MEDS ORDERED: ONDANSETRON 4 MG OD TAB PO PRN (13:57)
[2022-05-19] MEDS: SODIUM CHLORIDE 0.9% 1000ML 1,000 ML IV SCH (16:40)
--- NOTE | 2022-05-19 17:01 | Hospitalist Consultation ---
Date of Consultation May 19, 2022 Assessment & Plan (1) Myelopathy concurrent with and due to spinal stenosis of cervical region: Tisha Gilbert is a 77-year-old female with a past medical history of hypertension, chronic reflux esophagitis, depression, hypothyroidism, hyperlipidemia, and myelopathy due to cervical stenosis who presented for scheduled cervical spine surgery with Dr. Serrano. We have been consulted for medication management. Cervical myelopathy s/p C6-C7 anterior cervical discectomy and fusion, C5 corpectomy 05/19 Pain control, DVT prophylaxis per primary team Ambulation restrictions per primary team History of asthma 2 L postanesthesia/postop nasal cannula requirement without wheezing/rales, suspect atelectasis Continue albuterol as needed Continue fluticasonevilanterol inhaled or formulary equivalent Continue montelukast Continue incentive spirometry to minimize atelectasis No wheezing or evidence of acute exacerbation Hypertension May resume lisinopril 30 mg tomorrow if renal function at baseline Hyperlipidemia -Resume rosuvastatin tomorrow Hypothyroidism -Continue Synthroid GERD Omeprazole converted to Protonix. Continue Protonix daily Anxiety/depression - Continue citalopram 20 mg p.o. every morning. Note this could contribute to mild hyponatremia but would not recommend changing at this time Hyponatremia Mild, chronic Urine studies/osmolality ordered May progress to discharge with outpatient follow-up as long as greater than 1 30; urine osmolality/serum osmolality/urine sodium ordered to evaluate for SIADH No history of heart disease/ID/CHF/arrhythmia/valvular disease No history of diabetes. BMP in morning DVT prophylaxis: Per primary team (2) Impaired fasting glucose: (3) Asthma: (4) Hypertension: (5) Chronic reflux esophagitis: (6) Depression: (7) Hypothyroidism: (8) Hyperlipidemia: History of Present Illness Attending Physician: Yves Serrano, DO History of Present Illness Tisha Gilbert is a 77-year-old female with a past medical history of hypertension, chronic reflux esophagitis, depression, hypothyroidism, hyperlipidemia, and myelopathy due to cervical stenosis who presented for scheduled cervical spine surgery with Dr. Serrano. We have been consulted for medication management. No leukocytosis, preop hemoglobin 14.6, coags normal, preop sodium 133, potassium normal, creatinine with normal baseline and preop creatinine 0.85, hemoglobin A1c 5.8%, triglycerides 654 cholesterol 168, LDL 85, UA bland, COVID- negative, EKG 05/2022 normal sinus rhythm with QTC [address] segment changes Seen at the bedside in the afternoon. She reports she feels well after surgery. Has no pain, is not sure if it is just the anesthetic but notes she is hopeful that she will continue to have no pain. She reports she did not know how much pain she was actually in until it was gone. Denies chest pain, chest pressure, shortness of breath, lightheadedness, nausea, vomiting, diarrhea. Denies numbness and tingling. Does endorse a intermittent allergy cough this time of year which is at its baseline, with no change. No wheezing. Discussed incentive spirometry use, patient agreeable. Does not wish to use flutter valve. Reviewed medications, she did not take her lisinopril today. No history of heart disease/ID/CHF/arrhythmia/valvular disease No history of diabetes Medical History: Reviewed Medications: Reviewed Surgical History: Reviewed Allergies: Reviewed Social History: Reviewed Code Status:Full Allergies Allergy/AdvReac Type Severity Reaction Status Date / Time shrimp Allergy Severe Hives Verified 05/19/22 08:43 adhesive Allergy Intermediate TAPE ON Verified 05/19/22 08:42 EYES CAUSED "EYES TO SWELL SHUT" aspirin Allergy Unknown MAKES HER Verified 05/19/22 08:42 SHAKE prednisone AdvReac Severe Verified 05/19/22 08:42 celecoxib [From Celebrex] AdvReac Mild GI bleed Verified 05/19/22 08:42 Unclassified Drugs Allergy Intermediate Venison-causes Uncoded 05/19/22 08:42 hives Home Medications Medication Instructions Recorded Confirmed Type cetirizine 10 mg tablet (Zyrtec) 5 mg PO QAM 09/26/18 05/19/22 History cyanocobalamin (vitamin B-12) 1,000 mcg PO QAM 09/26/18 05/19/22 History 1,000 mcg tablet (Vitamin B-12) epinephrine 0.3 mg/0.3 mL 0.3 mg IM Q3H PRN Allergic Reaction 09/26/18 05/19/22 History injection, auto-injector (EpiPen) omeprazole 20 mg tablet,delayed 20 mg PO QAM 09/26/18 05/19/22 History release naphazoline 0.025 %-pheniramine 1 drp ophthalmic (eye) UD PRN 1 12/01/19 09/19/22 History 0.3 % eye drops cholecalciferol (vitamin D3) 25 1,000 unit PO QAM 04/18/20 05/19/22 History mcg (1,000 unit) capsule (Vitamin D3) baclofen 10 mg tablet 10 mg PO Q8H PRN pain/spasm #60 08/13/21 05/19/22 Rx tabs metronidazole 0.75 % topical gel 1 applic topical QAM 11/19/21 05/19/22 History albuterol sulfate 90 mcg/actuation 2 puff inhalation Q6H PRN 11/26/21 05/19/22 Rx aerosol inhaler shortness of breath or wheezing #8.5 grams oxycodone-acetaminophen 5 mg-325 1 - 2 tab PO Q6H PRN pain #15 tabs 01/27/22 05/19/22 Rx mg tablet (Percocet) benzonatate 100 mg capsule 100 - 200 mg PO TID PRN cough 04/29/22 05/19/22 History citalopram 20 mg tablet (Celexa) 20 mg PO QAM 04/29/22 05/19/22 History fluticasone furoate 100 1 ea inhalation QAM 04/29/22 05/19/22 History mcg-vilanterol 25 mcg/dose inhalation powder fluticasone propionate 50 1 spray intranasal BID 04/29/22 05/19/22 History mcg/actuation nasal spray,suspension (Flonase Allergy Relief) levothyroxine 88 mcg tablet 88 mcg PO QAM 04/29/22 05/19/22 History lisinopril 30 mg tablet 30 mg PO QAM 04/29/22 05/19/22 History montelukast 10 mg tablet 10 mg PO QAM 04/29/22 05/19/22 History (Singulair) oxycodone 5 mg tablet 5 mg PO Q6H PRN pain, severe #20 05/19/22 Rx tabs rosuvastatin 20 mg tablet (Crestor) 20 mg PO DAILY 05/19/22 05/19/22 History tramadol 50 mg tablet 50 mg PO Q6H PRN pain, moderate 05/19/22 Rx #20 tabs Patient History Medical History Actinic keratosis Asthma maintenance inhaler-rescue inhaler use occasional during seasonal exacerbations-last rescue inhaler use 02/2022 Cervical facet syndrome Cervicalgia Chronic low back pain Chronic reflux esophagitis Claustrophobia with full mask Depression Diverticulosis of colon Essential tremor Hx of gastric ulcer treated Hyperlipidemia Hypertension controlled, stable per pt Hypothyroidism Malignant melanoma of skin lt. upper shoulder-removed Rosacea Seborrheic keratosis Tubular adenoma of colon Surgical History H/O breast surgery R duct repair-denies limb restriction H/O cataract extraction Bilateral History of carpal tunnel release of both wrists History of colectomy Sigmoid History of esophagogastroduodenoscopy (EGD) History of hernia repair X3 History of hysterectomy History of lymph node dissection of left axilla History of tonsillectomy Hx of colonoscopy S/P medial meniscal repair R knee Family History Father Heart disease Mother Stroke syndrome Asthma Cerebral aneurysm Aunt Ovarian cancer Denies family history of Prostate cancer Coronary heart disease Breast cancer Lung disease Social History Smoking Status: Never smoker Second Hand Exposure: Yes; Do You Dip or Chew Tobacco: No; Tobacco Cessation Education Requested by Patient: No Hx Alcohol Use: No Hx Substance Use: No Preferred Language: Iranian Communication Ability: Effective Digital Data Analyst Required: No Beliefs That Will Affect Care: None Current Living Situation: Spouse Other Information That Helps Us Care for You: No Feels Safe at Home: Yes Safety Concerns: Feels Safe At This Time caffeine: Yes Physical Activity Frequency: Daily Physical Activity Frequency Comment: Active deep breathing, walking, stretching Seatbelt Use: always Sunscreen Use: Yes (Protective clothing/covering ) Assistive Devices: Glasses Assistive Devices Comment: walker/electric scooter for long distances only Review of Systems Review of Systems: All systems reviewed & are unremarkable except as noted in Subjective Physical Exam Physical Exam: General: A&Ox3. NAD. Cooperative. HEENT: Atraumatic, normocephalic. Collar in place, postsurgical dressing in place C/C/I. CARI drain intact draining serosanguineous material Pulm: CTAB A&P. -wheezes, -rales, -rhonchi. Symmetrical chest rise. No increase in work of breathing. No respiratory distress. Cardiac: RRR, -mrg. Radial pulses intact and symmetrical. Abdominal: Nontender, nondistended, soft. BS present. Extremities: Pitch [place]herer strength, elbow flexion/extension 5/5 bilaterally, ankle dorsiflexion/plantarflexion 5/5 bilaterally. Sensation intact to soft touch in hands and feet. Radial and PT pulse intact bilaterally Results & Data Results & Data ([facility]) Vital Signs (Past 12 Hours) Vital Signs Temp Pulse Pulse Resp BP Pulse Ox Pulse Ox 05/19/22 16:01 05/19/22 15:40 37.3 C 68 14 136/66 96 05/19/22 15:50 96 05/19/22 15:15 66 12 133/60 93 05/19/22 14:45 67 12 136/61 92 05/19/22 14:15 69 15 128/61 92 05/19/22 13:45 69 13 135/58 L 94 05/19/22 13:15 66 12 131/57 L 94 05/19/22 13:05 36.7 C 67 13 142/60 H 94 05/19/22 12:55 67 13 146/61 H 95 05/19/22 12:45 69 15 146/66 H 94 05/19/22 12:35 72 17 152/72 H 95 05/19/22 12:25 68 15 156/75 H 94 05/19/22 12:15 69 16 162/85 H 93 05/19/22 11:55 68 15 179/105 H 98 05/19/22 11:45 76 19 184/91 H 97 05/19/22 12:05 70 18 177/88 H 98 05/19/22 11:37 36.5 C 79 16 160/103 H 95 05/19/22 08:51 37.1 C 76 18 157/84 H 97 O2 Del Method O2 Del Method O2 Flow Rate O2 Flow Rate 05/19/22 16:01 Nasal Cannula 2 05/19/22 15:40 Nasal Cannula 2 05/19/22 15:50 Nasal Cannula 2 05/19/22 15:15 Nasal Cannula 2 05/19/22 14:45 Nasal Cannula 2 05/19/22 14:15 Nasal Cannula 2 05/19/22 13:45 Nasal Cannula 2 05/19/22 13:15 Nasal Cannula 2 05/19/22 13:05 Nasal Cannula 2 05/19/22 12:55 Nasal Cannula 2 05/19/22 12:45 Nasal Cannula 2 05/19/22 12:35 Nasal Cannula 2 05/19/22 12:25 Nasal Cannula 2 05/19/22 12:15 Nasal Cannula 2 05/19/22 11:55 Oxymask 6 05/19/22 11:45 Oxymask 10 05/19/22 12:05 Oxymask 6 05/19/22 11:37 Oxymask 10 05/19/22 08:51 Room Air PG Care Time/CCT Total # of Minutes Spent Total Time Spent with Patient: Total time spent is greater than 50% in coordination of care (as documented) at patient's floor/unit and/or counseling patient: Coding Level of Care Code 61652 Inpt Consult Level 4 Diagnoses Myelopathy concurrent with and due to spinal stenosis of cervical region M48.02; G99.2 Impaired fasting glucose R73.01 Asthma J45.909 Hypertension I10 Chronic reflux esophagitis K21.0 Depression F32.9 Hypothyroidism E03.9 Hyperlipidemia E78.5
[2022-05-19] MEDS: oxyCODONE HCL IR 5 MG TAB (IMMEDIATE RELEASE) PO PRN (17:33)
[2022-05-19] MEDS: ceFAZolin 2000MG 2,000 MG/15 ML SYR IV SCH (17:36)
[2022-05-19] MEDS: FLUTICASONE PROPIONATE NA SPR 16 GM BTL SCH (20:04)
[2022-05-19] MEDS: ACETAMINOPHEN 500 MG TAB PO PRN (20:09)
[2022-05-19] MEDS ORDERED: DOCUSATE SODIUM/SENNA 50/8.6MG TAB PO SCH (21:00)
[2022-05-20] MEDS: ceFAZolin 2000MG 2,000 MG/15 ML SYR IV SCH (02:41)
[2022-05-20] MEDS: SODIUM CHLORIDE 0.9% 1000ML 1,000 ML IV SCH (02:55)
[2022-05-20] MEDS: oxyCODONE HCL IR 5 MG TAB (IMMEDIATE RELEASE) PO PRN (04:05)
[2022-05-20] MEDS: ACETAMINOPHEN 500 MG TAB PO PRN (04:05)
[2022-05-20] MEDS: POLYETHYLENE (MIRALAX) 17 GM PACK PO SCH ×2 (04:11→12:10)
[2022-05-20] MEDS ORDERED: LEVOTHYROXINE SODIUM 88 MCG TABLET PO SCH (06:30)
[2022-05-20] MEDS ORDERED: CYANOCOBALAMIN (B-12) 500 MCG TABLET PO SCH (09:00)
[2022-05-20] MEDS ORDERED: CITALOPRAM 20 MG TAB PO SCH (09:00)
[2022-05-20] MEDS ORDERED: MONTELUKAST SODIUM 10 MG TABLET PO SCH (09:00)
[2022-05-20] MEDS ORDERED: PANTOprazole 40 MG TAB PO SCH (09:00)
[2022-05-20] MEDS ORDERED: FLUTICASONE/VILANTEROL 100/25MCG 14 PUFFS/INHALER INH SCH (09:00)
[2022-05-20] MEDS ORDERED: ROSUVASTATIN CALCIUM 20 MG TAB PO SCH (09:00)
[2022-05-20] MEDS ORDERED: lisinopril 10 MG TAB PO SCH (09:00)
[2022-05-20] MEDS ORDERED: CHOLECALCIFEROL 1,000 UNITS 25 MCG TAB PO SCH (09:00)
[2022-05-20] MEDS ORDERED: CETIRIZINE HCL 10 MG TABLET PO SCH (09:00)
[2022-05-20] MEDS ORDERED: dexAMETHasone 6 MG in SYRINGE 0 ML IV SCH (09:00)
[2022-05-20 09:12] LABS: Calcium 8.9 mg/dl (8.5-10.1); Creatinine Clr Calc Pharmacy 56.7 ml/min; Est GFR (African American) 82.5 ml/min; Est GFR (Non-African American) 71.2 ml/min; Potassium 4.2 mmol/L (3.5-5.1)
[2022-05-20] MEDS: FLUTICASONE PROPIONATE NA SPR 16 GM BTL SCH (09:27)
--- NOTE | 2022-05-20 09:47 | XRay Report ---
XR chest 1V portable HISTORY: 77 years-old Female post op fever acute postoperative fever COMPARISON: Chest radiograph 05/06/2022 TECHNIQUE: Portable AP view of the chest FINDINGS: Cardiac silhouette is enlarged. No pneumothorax, pleural effusion, airspace consolidation or overt pu lmonary edema. The patient's c-collar limits evaluation of the lung apices. Cervical spinal fusion [place] rdware. 1.0 cm metallic density device projects over the right neck soft tissues. There also appears to be a surgical drainage catheter present. IMPRESSION: 1. No acute processes of the chest. 2. Postoperative changes of the cervical spine with possible suture needle foreign body within the ri ght neck soft tissues. Alternatively, this structure may be external to the patient. ACT 112: Negative or not required by law. The above report was generated using voice recognition software. It may contain grammatical, syntax o r spelling errors. Electronically signed by: Kun Montanez M.D. 05/20/2022 9:46 AM
--- NOTE | 2022-05-20 10:35 | Hospitalist Progress Note ---
Date of Service May 20, 2022 Assessment & Plan (1) Myelopathy concurrent with and due to spinal stenosis of cervical region: Plan: Tisha Gilbert is a 77-year-old female with a past medical history of hypertension, chronic reflux esophagitis, depression, hypothyroidism, hyperlipidemia, and myelopathy due to cervical stenosis who presented for scheduled cervical spine surgery with Dr. Serrano. We have been consulted for medication management. Cervical myelopathy s/p C6-C7 anterior cervical discectomy and fusion, C5 corpectomy 05/19 Pain control, DVT prophylaxis per primary team Ambulation restrictions per primary team (2) Hyponatremia: Plan: Mild, chronic Urine studies/osmolality ordered-appears consistent with SIAHD - Fluid restriction 1500 ml - can f/u Na level as outpatient (3) Impaired fasting glucose: Plan: - outpatient f/u - dietary modification (4) Asthma: Plan: 2 L postanesthesia/postop nasal cannula requirement without wheezing/rales, suspect atelectasis Continue albuterol as needed Continue fluticasonevilanterol inhaled or formulary equivalent Continue montelukast Continue incentive spirometry to minimize atelectasis No wheezing or evidence of acute exacerbation (5) Hypertension: Plan: May resume lisinopril 30 mg tomorrow if renal function at baseline (6) Chronic reflux esophagitis: Plan: Omeprazole converted to Protonix. Continue Protonix daily (7) Depression: Plan: - Continue citalopram 20 mg p.o. every morning. Note this could contribute to mild hyponatremia but would not recommend changing at this time (8) Hypothyroidism: Plan: - Continue Synthroid (9) Hyperlipidemia: Plan: - Resume rosuvastatin tomorrow Plan Patient is stable from medicine standpoint for discharge. No further recommendations for this patient, thank you for allowing us to participate in her care. Will sign off. Please contact with any questions/concerns. Plan to be d/w Dr. Barreto. Admission and Anticipated Discharge Date Admission Date: May 19, 2022 Subjective Patient seen on daily rounds this morning. She is resting comfortably in bed, reports that post operative pain is adequately controlled. Denies chest pain, dyspnea, n/v/d, f/c, headache, or gu symptoms. Review of Systems Review of Systems: All systems reviewed and are unremarkable except as noted in HPI and below. Denies fever, chills, fatigue, headache, nasal congestion, sore throat, cough, chest pain, shortness of breath, palpitations, orthopnea, PND, abdominal pain, n/v/d, constipation, dysuria, hematuria, frequency, back pain, joint pain or swelling, easy bruising or bleeding. Physical Exam Physical Exam: GENERAL: 77 yo Well-developed, well-nourished WF. NAD. LUNGS: Clear to auscultation bilaterally. No W/R/R. CARDIOVASCULAR: Regular rate and rhythm. ABDOMEN: Soft, non-tender and non-distended. BS normoactive x 4 quad. EXTREMITIES: No edema. Non-tender. Peripheral pulses +2/4. NEUROLOGIC: A&O x3. No focal neurological deficits. PSYCHIATRIC: Cooperative. Appropriate mood and affect. SKIN: Warm, dry, intact. No rashes or lesions. Anterior incision dressing dry. CARI drain noted. Results & Data Results & Data ([facility]) Vital Signs (Past 12 Hours) Vital Signs Temp Pulse Pulse Resp BP BP Pulse Ox 05/20/22 08:55 36.9 C 76 134/68 05/20/22 07:35 62 16 95 05/20/22 07:31 36.9 C 70 18 165/63 H 95 05/20/22 06:23 36.7 C 64 16 108/63 95 05/20/22 03:50 64 18 96 05/20/22 04:08 36.8 C 64 16 145/70 H 97 05/20/22 02:43 36.8 C 64 16 121/66 96 05/19/22 23:05 67 15 96 05/19/22 23:40 36.8 C 66 16 119/67 95 O2 Del Method O2 Flow Rate FiO2 05/20/22 08:55 05/20/22 07:35 Room Air 21 05/20/22 07:31 Room Air 05/20/22 06:23 Nasal Cannula 2 05/20/22 03:50 Nasal Cannula 2 05/20/22 04:08 Room Air 05/20/22 02:43 Room Air 05/19/22 23:05 Nasal Cannula 2 05/19/22 23:40 Nasal Cannula 2 Laboratory Results 05/20/22 08:02 PG Care Time/CCT Total # of Minutes Spent Total Time Spent with Patient: Total time spent is greater than 50% in coordination of care (as documented) at patient's floor/unit and/or counseling patient: Coding Level of Care Code 11269 Subseq Hosp Care Lvl 2 Diagnoses Myelopathy concurrent with and due to spinal stenosis of cervical region M48.02; G99.2 Hyponatremia E87.1 Impaired fasting glucose R73.01 Asthma J45.909 Hypertension I10 Chronic reflux esophagitis K21.0 Depression F32.9 Hypothyroidism E03.9 Hyperlipidemia E78.5
--- NOTE | 2022-05-20 10:46 | Discharge Summary ---
Date of Service May 20, 2022 Admission HPI Per Admitting Provider This is a 68-year-old female presents above-mentioned diagnosis after failed course of nonoperative care is here for surgical invention. Admission Exam (Per Admitting) Constitutional WD/WN, vitals as above Eyes normal visual trujillo by confrontation ENMT external ear and nose normal, oropharynx normal Neck normal visual inspection Respiratory normal respiratory effort Cardiovascular Extremities: normal capillary refill Gastrointestinal (Abdomen) Inspection/Auscultation: abdomen normal to inspection Musculoskeletal Spine: + limited cervical ROM Extremities: extremities normal to inspection and strength 5/5 throughout Skin no rashes, warm and dry Neurologic normal touch/pain/proprioception and moves all extremities Psychiatric A+Ox3, euthymic affect Eye Contact: good eye contact Speech: normal rate/rhythm/volume of speech Discharge Data Consultations 05/19/22 13:57 Consult Hospitalist Routine Procedures Performed Operation Date: 05/19/22 10:05 Actual Procedures p Anterior cervical corpectomy with bilateral foraminotomies C5, anterior cervical discectomy with bilateral foraminotomies C6-C7, placement of 21 mm peek cage at C4-C6 and 7 mm cage at C6-C7, placement locally harvested morselized autograft combined with I factor in the interbody cages, application of 5 complete and screws from C4-C7(Not Applicable) - Yves Serrano, Hospital Course (1) Myelopathy concurrent with and due to spinal stenosis of cervical region: Patient is being discharged home on postoperative day 1 status post C5 corpectomy, ACDF C6-7. She is had an uncomplicated hospital course postoperatively. Denies any dysphonia or dysphagia. She is up and ambulatory and using the restroom without issue. Pain is controlled. Discharge Instructions ACTIVITY RECOMMENDATIONS: SELF CARE INSTRUCTIONS AFTER CERVICAL FUSIONS 1. No smoking. Smoking drastically decreases the chance of a solid fusion. 2. No bending, lifting more than 5 pounds, or twisting (roll like a log when turning in bed). 3. You may shower 3 days after surgery. Thoroughly dry wound. Do not soak in the tub. 4. Cervical collar: Must be worn at all times including sleeping. You may remove the brace only to bath, eat and if you are sitting in a recliner. 5. Please walk as much as you can for exercise. Gradually increase the distance that you walk as your endurance increases. SPECIAL CARE INSTRUCTIONS: VERY IMPORTANT TO READ AND REVIEW A. Do not take any anti-inflammatory medications (i.e. Indocin, Advil, Aspirin, Naprosyn, Aleve, Motrin, etc.) as these may inhibit the chance of a solid fusion. Tylenol is okay to take. B. Your surgical incision has been closed with a cosmetic suture under the skin that will dissolve in about 6 weeks. In 14 days, you can use a pair of clean scissors and cut the suture that is left outside of the skin at the ends of your incision. C. Complications are uncommon, but please contact us if you have any signs or symptoms of: 1. wound infection (fever higher than 102.5 degrees F, redness, separation of wound, drainage, or increasing pain from the incision) 2. blood clots in legs (pain, swelling, redness and warmth in legs) 3. urinary tract infection (fever higher than 102.5 degrees, burning upon urination or increased frequency of urination) 4. nerve problems (inability to walk on your toes or heels, numbness, loss of bowel or bladder control) 5. any other symptoms that concern you. D. Please call the office at if you have any concerns or questions about your operation or recovery. MANAGING PAIN AFTER SPINAL SURGERY 1. Narcotic medication is intended for short-term use and will be provided for surgical pain. Surgical pain usually lasts for a period of 4-6 weeks. Narcotic medication includes Percocet, Vicodin, Darvocet, Tylenol #3 or Lortab. 2. Longer-term pain is more appropriately treated with non-narcotic medication such as Tylenol ES. 3. Muscle spasm is not appropriately treated with narcotics. Muscle relaxers such as Soma, Flexeril or Skelaxin can be used along with Tylenol ES. 4. Remember that we all live with some "aches and pains". This is not unusual or uncommon after an injury or as we get older. 5. We will provide appropriate medication within the normal guidelines of their prescribed use. We will also be very cautious and aware of potential abuse and extended duration of patients' medication needs. 6. Please allow 2-3 days to process refills. Prescriptions will not be mailed but must be picked up at the office. FOLLOW UP VISIT: Keep your scheduled follow-up appointment. Any questions, please call the office at .
== END 2022-05-20 13:28 | disposition home or self-care (01) | DRG 472 ==
LOC: ASU 08:06 → PACUINP 11:30 → 3W 15:47

== ENCOUNTER 2023-01-06 10:10 | Inpatient (IN) ==
--- NOTE | 2023-01-06 10:42 | Emergency Department Note ---
Impression & Plan Weakness, BLANQUITA (acute kidney injury), Acute hyponatremia, Acute UTI, Failure of outpatient treatment ED Provider Note NAME: NADER GRAVES AGE: 77 SEX: F : 1945 ARRIVES VIA: Walk-In INFORMANT: [Patient] ED PROVIDER(S): [Domenico Sotelo MD] CHIEF COMPLAINT: Illness HISTORY OF PRESENT ILLNESS: The patient is a 77-year-old female who is currently on Bactrim for UTI. She has been on this medication for over a week. The patient still is having some spasms across the bladder with urination. No fever. She does feel some nausea. The patient states that she has pain in the area of the right scapula and back. This pain comes and goes. She feels very weak and she states that she has noticed near syncopal spells with standing. She feels washed out. The patient is concerned that this all could be from infection. Of note, the patient did have her cholesterol medication increased to 40 mg about a month ago. In the past, she has had issues with cholesterol medications and her liver. PMHx/PSHx: See Below SOCIAL HISTORY: See Below. PHYSICAL EXAM: GENERAL: Patient is in no acute distress. HEENT: No acute trauma, normocephalic atraumatic, mucous membranes moist, no nasal congestion. NECK: No stridor, no adenopathy, no meningismus, trachea is midline. LUNGS: Clear to auscultation bilaterally, no wheeze, no rhonchi, breath sounds equal. HEART: Without murmurs gallops or rubs, regular rate and rhythm. ABDOMEN: Soft, nontender, bowel sounds positive, no peritonitis. EXTREMITIES: No cyanosis or edema, full range of motion of all the joints without pain or difficulty, no signs for acute trauma. NEUROLOGIC: Oriented x 3, no acute motor or sensory deficits, no focal weakness. SKIN: No rash, no jaundice, no diaphoresis. Back: Mild right flank discomfort to percussion. DIFFERENTIAL DIAGNOSIS: Pyelonephritis, failed outpatient management, renal or liver failure, UTI, cardiac ischemia, hydronephrosis, medication reaction, among others. EMERGENCY DEPARTMENT COURSE/PROCEDURES: Prior/Outside records reviewed: Recent outpatient family doctor's office visit. ECG per my interpretation: Indication was weakness. The ECG shows a normal sinus rhythm with a rate of 76. There is no ST elevation, no PVCs. The QTc is 432. Continuous Cardiac Monitoring per my interpretation: An order was placed for continuous cardiac monitoring. The monitor shows a rate of 90 with normal sinus rhythm. MEDICAL DECISION MAKING: There is a mild leukocytosis, this certainly could be consistent with infection. There was no anemia. There was a normal platelet count. Sodium was low at 128, the patient does have a history of a lower sodium however, this value today was below her typical baseline. There was evidence for some acute kidney injury with an elevation of the creatinine at 1.63. No concerning liver enzyme elevation. Total CK was not elevated making rhabdomyolysis unlikely. The patient appeared to be in a euthyroid state. ECG showed a normal sinus rhythm, no ischemia or dysrhythmia. Cardiac enzyme testing x1 was not consistent with acute cardiac injury. Urinalysis did not show infection or blood. COVID test returned negative. Chest x-ray per my review did not show mediastinal widening, pneumonia or pneumothorax. Abdominal and pelvis CT did not show any hydronephrosis or acute surgical pathology. The patient received IV saline, she was given 1.5 L. She received IV ceftriaxone as antibiotic coverage. The patient presents with failed outpatient management of her UTI. I do think she requires a hospital stay. The Bactrim prescribed may actually be part of why she is feeling so poorly. Bactrim oftentimes is difficult to tolerate in the older population. I did speak with the patient, I talked to case management, the on-call hospitalist was consulted. DISPOSITION: Presentation and findings warrant a hospital stay. Past Med/Surg History Medical History Actinic keratosis Asthma maintenance inhaler-rescue inhaler use occasional during seasonal exacerbations-last rescue inhaler use 02/2022 Cervical facet syndrome Cervicalgia Chronic low back pain Chronic reflux esophagitis Claustrophobia with full mask Depression Diverticulosis of colon Essential tremor Hx of gastric ulcer treated Hyperlipidemia Hypertension Hypothyroidism Malignant melanoma of skin lt. upper shoulder-removed Rosacea Seborrheic keratosis Tubular adenoma of colon Surgical History H/O breast surgery R duct repair-denies limb restriction H/O cataract extraction Bilateral History of carpal tunnel release of both wrists History of colectomy Sigmoid History of esophagogastroduodenoscopy (EGD) History of hernia repair X3 History of hysterectomy History of lymph node dissection of left axilla History of tonsillectomy Hx of colonoscopy S/P medial meniscal repair R knee Family History Father Heart disease Mother Stroke syndrome Asthma Cerebral aneurysm Aunt Ovarian cancer Denies family history of Prostate cancer Coronary heart disease Breast cancer Lung disease Social History Smoking Status: Never smoker Second Hand Exposure: No; Do You Dip or Chew Tobacco: No; Hx Alcohol Use: No Hx Substance Use: No Preferred Language: Hong [place]er Communication Ability: Effective Visual Impairment: No Limitations Detacher Required: No Beliefs That Will Affect Care: None marital status: Current Living Situation: Spouse How many Children do You have: 2 Feels Safe at Home: Yes Diet: regular caffeine: Yes Physical Activity Frequency: Daily Physical Activity Frequency Comment: Active deep breathing, walking, stretching Seatbelt Use: always Sunscreen Use: Yes (Protective clothing/covering ) Assistive Devices: Cane and Walker Allergies Allergies Allergy/AdvReac Type Severity Reaction Status Date / Time shrimp Allergy Severe Hives Verified 01/06/23 13:14 adhesive Allergy Intermediate TAPE ON Verified 01/06/23 13:14 EYES CAUSED "EYES TO SWELL SHUT" aspirin Allergy Unknown MAKES HER Verified 01/06/23 13:14 SHAKE celecoxib [From Celebrex] AdvReac Mild GI bleed Verified 01/06/23 13:14 prednisone AdvReac Unknown Abdominal Verified 01/06/23 13:14 Pain Unclassified Drugs Allergy Intermediate Venison-causes Uncoded 01/06/23 13:14 hives Home Meds Home Medications Medication Instructions Recorded Confirmed cetirizine 10 mg tablet (Zyrtec) 5 mg PO QAM 09/26/18 01/06/23 cyanocobalamin (vitamin B-12) 1,000 mcg PO QAM 09/26/18 01/06/23 1,000 mcg tablet (Vitamin B-12) omeprazole 20 mg tablet,delayed 20 mg PO QPM 09/26/18 01/06/23 release naphazoline 0.025 %-pheniramine 1 drp ophthalmic (eye) UD PRN 1 07/31/19 01/06/23 0.3 % eye drops cholecalciferol (vitamin D3) 25 1,000 unit PO QAM 04/18/20 01/06/23 mcg (1,000 unit) capsule (Vitamin D3) metronidazole 0.75 % topical gel 1 applic topical QAM 11/19/21 01/06/23 benzonatate 100 mg capsule 100 - 200 mg PO TID PRN cough 04/29/22 01/06/23 fluticasone propionate 50 1 spray intranasal BID 04/29/22 01/06/23 mcg/actuation nasal spray,suspension (Flonase Allergy Relief) lisinopril 30 mg tablet 30 mg PO QAM 04/29/22 01/06/23 montelukast 10 mg tablet 10 mg PO QAM 04/29/22 01/06/23 (Singulair) Previous Rx's Medication Instructions Recorded baclofen 10 mg tablet 10 mg PO Q8H PRN pain/spasm #60 08/13/21 tabs albuterol sulfate 90 mcg/actuation 2 puff inhalation Q6H PRN 11/26/21 aerosol inhaler shortness of breath or wheezing #8.5 grams citalopram 20 mg tablet (Celexa) 20 mg PO DAILY #90 tabs 10/01/22 levothyroxine 88 mcg tablet 88 mcg PO DAILY #90 tabs 10/27/22 Breo Ellipta 100 mcg-25 mcg/dose 1 inh inhalation DAILY #180 ea 10/30/22 powder for inhalation (fluticasone furoate-vilanterol) sulfamethoxazole 800 1 tab PO BID 14 days #28 tabs 12/26/22 mg-trimethoprim 160 mg tablet (Bactrim DS) rosuvastatin 40 mg tablet 40 mg PO DAILY #90 tabs 01/06/23 Results & Data (ED) Vital Signs Vital Signs - 24 hr 01/06/23 10:15 01/06/23 11:11 01/06/23 11:11 Temperature 36.2 C L Temperature Source Temporal Artery Scan Pulse Rate 90 68 Pulse Rate [Apical] 68 Pulse Rate from SpO2 Sensor Pulse Rhythm Regular Pulse Rhythm [Apical] Regular Pulse Strength [Apical] Normal Respiratory Rate 20 20 20 Respiratory Effort / Characteristics Non-Labored Non-Labored Spontaneous Respiratory Depth Normal Normal Respiratory Pattern Regular Blood Pressure 106/60 Blood Pressure [Right Arm] 109/52 L Blood Pressure Mean 75 Blood Pressure Mean [Right Arm] 71 Blood Pressure Position [Right Arm] Sitting Pulse Oximetry 96 97 97 Oxygen Delivery Method Room Air Room Air Room Air Sepsis Recent Fever Within 48 Hours No Sepsis New/Unexplained Change in Mental Status N/A Sepsis Action Taken by Nursing No Action Required 01/06/23 10:51 01/06/23 11:00 01/06/23 11:00 Temperature Temperature Source Pulse Rate 71 71 Pulse Rate [Apical] Pulse Rate from SpO2 Sensor 71 72 Pulse Rhythm Pulse Rhythm [Apical] Pulse Strength [Apical] Respiratory Rate 16 14 Respiratory Effort / Characteristics Respiratory Depth Respiratory Pattern Blood Pressure 109/52 L Blood Pressure [Right Arm] Blood Pressure Mean 71 Blood Pressure Mean [Right Arm] Blood Pressure Position [Right Arm] Pulse Oximetry 97 96 Oxygen Delivery Method Sepsis Recent Fever Within 48 Hours Sepsis New/Unexplained Change in Mental Status Sepsis Action Taken by Nursing 01/06/23 11:30 01/06/23 11:30 01/06/23 12:00 Temperature Temperature Source Pulse Rate 66 Pulse Rate [Apical] Pulse Rate from SpO2 Sensor 66 Pulse Rhythm Pulse Rhythm [Apical] Pulse Strength [Apical] Respiratory Rate 12 Respiratory Effort / Characteristics Respiratory Depth Respiratory Pattern Blood Pressure 110/51 L 127/55 L Blood Pressure [Right Arm] Blood Pressure Mean 70 79 Blood Pressure Mean [Right Arm] Blood Pressure Position [Right Arm] Pulse Oximetry 98 Oxygen Delivery Method Sepsis Recent Fever Within 48 Hours Sepsis New/Unexplained Change in Mental Status Sepsis Action Taken by Nursing 01/06/23 12:00 01/06/23 12:38 Temperature Temperature Source Pulse Rate 65 66 Pulse Rate [Apical] Pulse Rate from SpO2 Sensor 65 Pulse Rhythm Pulse Rhythm [Apical] Pulse Strength [Apical] Respiratory Rate 14 Respiratory Effort / Characteristics Respiratory Depth Respiratory Pattern Blood Pressure Blood Pressure [Right Arm] Blood Pressure Mean Blood Pressure Mean [Right Arm] Blood Pressure Position [Right Arm] Pulse Oximetry 98 Oxygen Delivery Method Sepsis Recent Fever Within 48 Hours Sepsis New/Unexplained Change in Mental Status Sepsis Action Taken by [facility] Medications Current Medication List: was personally reviewed by me Laboratory Data Attestation: I reviewed the patient's lab results. 01/06/23 10:51 01/06/23 10:51 Lab Results 01/06/23 01/06/23 01/06/23 Range/Units 10:51 10:51 10:51 WBC 12.00 H (4.8-10.8) K/ul RBC 4.63 (4.20-5.40) M/uL Hgb 14.9 (12.0-16.0) g/dl Hct 43.3 (37.0-47.0) % MCV 93.5 (80.0-100.0) fL MCH 32.2 (25.0-34.0) pg MCHC 34.4 (32.0-36.0) g/dL RDW Std Deviation 44.8 (36.4-46.3) fL RDW Coeff of Isaias 13.1 (11.5-14.5) % Plt Count 272 (130-400) K/uL MPV 8.4 L (9.4-12.4) fL Immature Gran % (Auto) 0.5 % Neut % (Auto) 63.5 % Lymph % (Auto) 25.8 % Tyrrell % (Auto) 8.0 % Eos % (Auto) 1.8 % Baso % (Auto) 0.4 % Neut # (Auto) 7.62 H (1.40-6.50) K/uL Lymph # (Auto) 3.10 (1.2-3.4) K/uL Tyrrell # (Auto) 0.96 H (0.11-0.59) K/uL Eos # (Auto) 0.21 (0-0.50) K/uL Baso # (Auto) 0.05 (0-0.2) K/uL Immature Gran # (Auto) 0.06 (0.01-0.20) K/uL Sodium 128 L (136-145) mmol/L Potassium 5.1 (3.5-5.1) mmol/L Chloride 99 (98-107) mmol/L Carbon Dioxide 19 L (21-32) mmol/L Anion Gap 10 (3-11) BUN 31 H (6-23) mg/dl Creatinine 1.63 H (0.6-1.2) mg/dl Est Cr Clr Drug Dosing 26.5 ml/min Est GFR ( Amer) 34.4 ml/min Est GFR (Non-Af Amer) 29.7 ml/min BUN/Creatinine Ratio 19.0 (10-20) Glucose 104 H (70-99(Fasting)) mg/dl Calcium 9.4 (8.6-10.3) mg/dl Magnesium 2.3 (1.7-2.4) mg/dl Total Bilirubin 0.5 (0.2-1.0) mg/dl AST 51 H (13-39) U/L ALT 33 (7-52) U/L Alkaline Phosphatase 64 (34-104) U/L Total Creatine Kinase 105 (26-192) U/L Troponin I High Sens 10.2 (0-14) pg/ml Total Protein 7.3 (6.0-8.3) gm/dl Albumin 4.5 (3.4-5.0) gm/dl Globulin 2.8 (2.5-4.0) gm/dl Albumin/Globulin Ratio 1.6 (0.9-2) TSH 1.757 (0.300-4.500) uIu/ml Urine Color Urine Appearance (Clear) Urine pH (4.5-7.5) Ur Specific [place] (1.000-1.030) Urine Protein (Negative) Urine Glucose (UA) (Negative) Urine Ketones (Negative) Urine Blood (Negative) Urine Nitrite (Negative) Urine Bilirubin (Negative) Urine Urobilinogen (Negative) Ur Leukocyte Esterase (Negative) SARS-CoV-2, RNA, NAAT (NEGATIVE) 01/06/23 01/06/23 Range/Units 10:51 12:12 WBC (4.8-10.8) K/ul RBC (4.20-5.40) M/uL Hgb (12.0-16.0) g/dl Hct (37.0-47.0) % MCV (80.0-100.0) fL MCH (25.0-34.0) pg MCHC (32.0-36.0) g/dL RDW Std Deviation (36.4-46.3) fL RDW Coeff of Isaias (11.5-14.5) % Plt Count (130-400) K/uL MPV (9.4-12.4) fL Immature Gran % (Auto) % Neut % (Auto) % Lymph % (Auto) % Tyrrell % (Auto) % Eos % (Auto) % Baso % (Auto) % Neut # (Auto) (1.40-6.50) K/uL Lymph # (Auto) (1.2-3.4) K/uL Tyrrell # (Auto) (0.11-0.59) K/uL Eos # (Auto) (0-0.50) K/uL Baso # (Auto) (0-0.2) K/uL Immature Gran # (Auto) (0.01-0.20) K/uL Sodium (136-145) mmol/L Potassium (3.5-5.1) mmol/L Chloride (98-107) mmol/L Carbon Dioxide (21-32) mmol/L Anion Gap (3-11) BUN (6-23) mg/dl Creatinine (0.6-1.2) mg/dl Est Cr Clr Drug Dosing ml/min Est GFR ( Amer) ml/min Est GFR (Non-Af Amer) ml/min BUN/Creatinine Ratio (10-20) Glucose (70-99(Fasting)) mg/dl Calcium (8.6-10.3) mg/dl Magnesium (1.7-2.4) mg/dl Total Bilirubin (0.2-1.0) mg/dl AST (13-39) U/L ALT (7-52) U/L Alkaline Phosphatase (34-104) U/L Total Creatine Kinase (26-192) U/L Troponin I High Sens (0-14) pg/ml Total Protein (6.0-8.3) gm/dl Albumin (3.4-5.0) gm/dl Globulin (2.5-4.0) gm/dl Albumin/Globulin Ratio (0.9-2) TSH (0.300-4.500) uIu/ml Urine Color Yellow Urine Appearance Clear (Clear) Urine pH 6.5 (4.5-7.5) Ur Specific [place] 1.009 (1.000-1.030) Urine Protein Negative (Negative) Urine Glucose (UA) Negative (Negative) Urine Ketones Negative (Negative) Urine Blood Negative (Negative) Urine Nitrite Negative (Negative) Urine Bilirubin Negative (Negative) Urine Urobilinogen Negative (Negative) Ur Leukocyte Esterase Negative (Negative) SARS-CoV-2, RNA, NAAT NEGATIVE (NEGATIVE) Administered Medications Discontinued Medications Sodium Chloride (Nss 1000ml) 1,000 mls @ 999 mls/hr IV .Q1H1M RAUL Stop: 01/06/23 11:45 Last Infusion: 01/06/23 11:51 Dose: 0 mls/hr Documented By: RSErin Admin: 01/06/23 10:56 Dose: 999 mls/hr Documented By: DEUCE Ceftriaxone Sodium (Rocephin) 2,000 mg in 70 mls @ 140 mls/hr IV NOW STA Stop: 01/06/23 12:52 Last Infusion: 01/06/23 13:52 Dose: 0 mls/hr Documented By: Admin: 01/06/23 13:14 Dose: 140 mls/hr Documented By: RSErin Sodium Chloride (Nss 1000ml) 500 mls @ 999 mls/hr IV .Q31M ONE Stop: 01/06/23 12:59 Last Infusion: 01/06/23 13:52 Dose: 0 mls/hr Documented By: Admin: 01/06/23 13:14 Dose: 999 mls/hr Documented By: RSL Imaging Data Radiologist's Impression: Abdomen/Pelvis CT 01/06/23 10:38 CT SCAN OF THE ABDOMEN AND PELVIS WITHOUT IV CONTRAST CLINICAL HISTORY: Right flank pain. Urinary tract infection. COMPARISON STUDY: Abdominal CT dated 03/18/2019 and 09/26/2018. TECHNIQUE: CT scan of the abdomen and pelvis is performed from the lung bases to the proximal femora. Images are reviewed in the axial, sagittal, and coronal planes. IV contrast was not administered for this examination. A dose lowering technique was utilized adhering to the principles of ALARA. CT DOSE: 746.61 mGy.cm FINDINGS: Lung bases: The heart is normal in size and without pericardial effusion. The coronary arteries are densely calcified. There are numerous bibasilar pulmonary nodules. The largest measures 5 mm and is in the right lower lobe on image #51 is unchanged. A 4 mm right middle lobe nodule is seen on image #12, and a 3 mm right lower lobe nodule is seen on image #5. 3 mm nodules in the lingula are seen on images #5 and #6. These are unchanged from prior examinations. A fat- containing Bochdalek hernia is noted on the left. No airspace consolidation or pleural effusion is identified. Liver: The unenhanced liver is normal in size, contour, and attenuation. There is no intrahepatic biliary ductal dilatation. A 10 mm lipoma is seen on the hepatic dome on image #55. Gallbladder: Unremarkable. Spleen: Normal in size and attenuation. Pancreas: Unremarkable. Adrenal glands: Unremarkable. Kidneys: The unenhanced kidneys demonstrate mild cortical atrophy and are without hydronephrosis. There are no renal calculi identified. There is no evidence of contour deforming renal mass lesion. Abdominal vasculature: The abdominal aorta is normal in course and caliber noti ng advanced atherosclerotic calcification. Bowel: There is mild colonic diverticulosis without CT evidence of acute diverticulitis. There is postoperative change from sigmoid colon resection and colocolonic anastomosis. No bowel obstruction is identified. The appendix is w ell-visualized and normal. Peritoneum: There is no intraperitoneal free air or abdominal ascites. There is evidence of previous ventral hernia repair. Lymphadenopathy: None. Pelvic viscera: The bladder is normal as visualized. The uterus is surgically absent. No adnexal lesion is seen. Skeletal structures: The skeletal structures are osteopenic. There is mild cervical spondylosis. Sclerotic change is seen in the sacroiliac joints. No lytic or blastic lesions are seen. IMPRESSION: 1. No acute infectious or inflammatory findings are identified in the abdomen or pelvis. 2. Colonic diverticulosis without CT evidence of acute diverticulitis. 3. Normal appendix. 4. Additional findings as above. ACT 112: Negative or not required by law. Electronically signed by: Domenico Zhao M.D. 01/06/2023 12:32 PM Chest X-Ray 01/06/23 10:38 SINGLE VIEW CHEST CLINICAL HISTORY: Generalized weakness. FINDINGS: An AP, portable, upright chest radiograph is compared to study dated 05/20/2022. The cardiomediastinal silhouette is unremarkable noting atherosclerotic calcification of the thoracic aorta. Chronic interstitial thickening is similar to previous. The lungs and pleural spaces are clear. No pneumothorax is seen. The skeletal structures are osteopenic. The bony thorax is grossly intact. Fusion hardware is seen in the lower cervical spine. IMPRESSION: No active disease in the chest. ACT 112: Negative or not required by law. Electronically signed by: Domenico Zhao M.D. 01/06/2023 11:13 AM Discharge Plan Visit Data Chief Complaint: Illness Stated Complaint: PAIN UNDER SHOULDER, NAUSEA, WEAKNESS IN ARMS,UTI ED Provider: Domenico Sotelo Discharge Problem: Weakness, BLANQUITA (acute kidney injury), Acute hyponatremia, Acute UTI, Failure of outpatient treatment Patient Disposition: Admitted As Inpatient Condition: Good Forms Stand Alone Forms: My [facility] Prescriptions Prescriptions: No Action baclofen 10 mg tablet 10 mg PO Q8H PRN (Reason: pain/spasm) Qty: 60 1RF Rx Instructions: take 1/2-1 tablet by mouth as needed for spasm citalopram [Celexa] 20 mg tablet 20 mg PO DAILY Qty: 90 3RF levothyroxine 88 mcg tablet 88 mcg PO DAILY Qty: 90 3RF fluticasone furoate-vilanterol [Breo Ellipta] 100-25 mcg/dose blister with device 1 inh inhalation DAILY Qty: 180 3RF rosuvastatin 40 mg tablet 40 mg PO DAILY Qty: 90 3RF naphazoline-pheniramine 0.025-0.3 % drops 1 drp OP UD PRN (Reason: 1) metronidazole 0.75 % gel 1 applic topical QAM sulfamethoxazole-trimethoprim [Bactrim DS] 800-160 mg tablet 1 tab PO BID 14 Days Qty: 28 0RF albuterol sulfate 90 mcg/actuation HFA aerosol inhaler 2 puff inhalation Q6H PRN (Reason: shortness of breath or wheezing) Qty: 8.5 3RF cetirizine [Zyrtec] 10 mg Tablet 5 mg PO QAM cyanocobalamin (vitamin B-12) [Vitamin B-12] 1,000 mcg Tablet 1,000 mcg PO QAM omeprazole 20 mg Tablet,Delayed Release (Dr/Ec) 20 mg PO QPM cholecalciferol (vitamin D3) [Vitamin D3] 25 mcg (1,000 unit) capsule 1,000 unit PO QAM benzonatate 100 mg capsule 100 - 200 mg PO TID PRN (Reason: cough) Rx Instructions: 1-2 caps PO TID PRN; lisinopril 30 mg tablet 30 mg PO QAM montelukast [Singulair] 10 mg tablet 10 mg PO QAM fluticasone propionate [Flonase Allergy Relief] 50 mcg/actuation spray,suspension 1 spray Intranasal BID Referrals Referrals: Dayna Beyer MD [Primary Care Provider] -
[2023-01-06] MEDS ORDERED: SODIUM CHLORIDE 0.9% 1000ML 1,000 ML IV SCH ×2 (10:45→15:50)
--- NOTE | 2023-01-06 11:14 | XRay Report ---
SINGLE VIEW CHEST CLINICAL HISTORY: Generalized weakness. FINDINGS: An AP, portable, upright chest radiograph is compared to study dated 05/20/2022. The cardiom ediastinal silhouette is unremarkable noting atherosclerotic calcification of the thoracic aorta. Chr onic interstitial thickening is similar to previous. The lungs and pleural spaces are clear. No pneum othorax is seen. The skeletal structures are osteopenic. The bony thorax is grossly intact. Fusion hargrove rdware is seen in the lower cervical spine. IMPRESSION: No active disease in the chest. ACT 112: Negative or not required by law. Electronically signed by: Domenico Zhao M.D. 01/06/2023 11:13 AM
[2023-01-06 11:30] LABS: Basophils # (auto) 0.05 K/uL (0-0.2); Basophils % (auto) 0.4 %; Eosinophils # (auto) 0.21 K/uL (0-0.50); Eosinophils % (auto) 1.8 %; Hematocrit (blood only) 43.3 % (37.0-47.0); Hemoglobin 14.9 g/dl (12.0-16.0); Immature Granulocytes # (auto) 0.06 K/uL (0.01-0.20); Immature Granulocytes % (auto) 0.5 %; Lymphocytes % (auto) 25.8 %; Mean Corpuscular Hemoglobin 32.2 pg (25.0-34.0); Mean Corpuscular Hgb Conc 34.4 g/dL (32.0-36.0); Mean Corpuscular Volume 93.5 fL (80.0-100.0); Mean Platelet Volume 8.4 fL (9.4-12.4); Monocytes # (auto) 0.96 K/uL (0.11-0.59); Neutrophils # (auto) 7.62 K/uL (1.40-6.50); Neutrophils % (auto) 63.5 %; Platelet Count 272 K/uL (130-400); RDW Coefficient of Variation 13.1 % (11.5-14.5); RDW Standard Deviation 44.8 fL (36.4-46.3); Red Blood Count 4.63 M/uL (4.20-5.40)
[2023-01-06 11:50] LABS: Albumin Globulin Ratio 1.6 (0.9-2); Albumin Level 4.5 gm/dl (3.4-5.0); Bilirubin,Total 0.5 mg/dl (0.2-1.0); Calcium 9.4 mg/dl (8.6-10.3); Creatinine Clr Calc Pharmacy 26.5 ml/min; Est GFR (African American) 34.4 ml/min; Est GFR (Non-African American) 29.7 ml/min; Globulin 2.8 gm/dl (2.5-4.0); Magnesium 2.3 mg/dl (1.7-2.4); Potassium 5.1 mmol/L (3.5-5.1); Total Protein 7.3 gm/dl (6.0-8.3)
[2023-01-06 11:55] LABS: Troponin I High Sensitivity 10.2 pg/ml (0-14)
[2023-01-06] MEDS ORDERED: cefTRIAXone SODIUM 2,000 MG/70 ML BAG IV STA (12:23)
[2023-01-06 12:24] LABS: Appearance Urine Clear (Clear); Bilirubin Urine Negative (Negative); Blood Urine Negative (Negative); Color Urine Yellow; Glucose Urine UA Negative (Negative); Ketones Urine Negative (Negative); Leukocyte Esterase Urine Negative (Negative); Nitrite Urine Negative (Negative); Protein Urine Negative (Negative); Specific Gravity Urine 1.009 (1.000-1.030); Urobilinogen Urine Negative (Negative); pH Urine 6.5 (4.5-7.5)
[2023-01-06] MEDS ORDERED: SODIUM CHLORIDE 0.9% 1000ML 500 ML IV ONE (12:29)
--- NOTE | 2023-01-06 12:34 | CT Scan Report ---
CT SCAN OF THE ABDOMEN AND PELVIS WITHOUT IV CONTRAST CLINICAL HISTORY: Right flank pain. Urinary tract infection. COMPARISON STUDY: Abdominal CT dated 03/18/2019 and 09/26/2018. TECHNIQUE: CT scan of the abdomen and pelvis is performed from the lung bases to the proximal femora. Images are reviewed in the axial, sagittal, and coronal planes. IV contrast was not administered for this examination. A dose lowering technique was utilized adhering to the principles of ALARA. CT DOSE: 746.61 mGy.cm FINDINGS: Lung bases: The heart is normal in size and without pericardial effusion. The coronary arteries are d ensely calcified. There are numerous bibasilar pulmonary nodules. The largest measures 5 mm and is in the right lower lobe on image #51 is unchanged. A 4 mm right middle lobe nodule is seen on image #12 , and a 3 mm right lower lobe nodule is seen on image #5. 3 mm nodules in the lingula are seen on loni ges #5 and #6. These are unchanged from prior examinations. A fat-containing Bochdalek hernia is note d on the left. No airspace consolidation or pleural effusion is identified. Liver: The unenhanced liver is normal in size, contour, and attenuation. There is no intrahepatic francisco iary ductal dilatation. A 10 mm lipoma is seen on the hepatic dome on image #55. Gallbladder: Unremarkable. Spleen: Normal in size and attenuation. Pancreas: Unremarkable. Adrenal glands: Unremarkable. Kidneys: The unenhanced kidneys demonstrate mild cortical atrophy and are without hydronephrosis. The re are no renal calculi identified. There is no evidence of contour deforming renal mass lesion. Abdominal vasculature: The abdominal aorta is normal in course and caliber noting advanced atheroscle rotic calcification. Bowel: There is mild colonic diverticulosis without CT evidence of acute diverticulitis. There is pos toperative change from sigmoid colon resection and colocolonic anastomosis. No bowel obstruction is i dentified. The appendix is well-visualized and normal. Peritoneum: There is no intraperitoneal free air or abdominal ascites. There is evidence of previous ventral hernia repair. Lymphadenopathy: None. Pelvic viscera: The bladder is normal as visualized. The uterus is surgically absent. No adnexal lesi on is seen. Skeletal structures: The skeletal structures are osteopenic. There is mild cervical spondylosis. Scle rotic change is seen in the sacroiliac joints. No lytic or blastic lesions are seen. IMPRESSION: 1. No acute infectious or inflammatory findings are identified in the abdomen or pelvis. 2. Colonic diverticulosis without CT evidence of acute diverticulitis. 3. Normal appendix. 4. Additional findings as above. ACT 112: Negative or not required by law. Electronically signed by: Domenico Zhao M.D. 01/06/2023 12:32 PM
--- NOTE | 2023-01-06 13:19 | History & Physical Report ---
Date of Service January 06, 2023 Assessment & Plan (1) BLANQUITA (acute kidney injury): Plan: presented with worsening fatigue/weakness with nausea/ No fever. Suspect recent Bactrim use from PCP for UTI w/ ongoing reports of urinary symptoms. Already completed 3 courses Macrobid earlier this year. No stones noted on CTAP. Seen urology many years ago, reporting urinary incontinence issues since having children but attempts to stay hydrated at home but does endorse coffee x 2 in AM, mint tea, not as much water but tries to sip on cup from prior hospitalization to stay hydrated throughout the day Provided IV ceftriaxone by ER, 2L NSS WBC elevation but no fevers at home (did not report fever/chills, but didn't ever check her temperature) Admit med/surg Repeat labs this afternoon following the 2L NSS by ER for Na 128, if not improved will add urine studies Is still dry on exam, will order additional 1L NSS @ 80cc/hr, reported darkened urine UA appeared clean -- ordered culture for completeness Blood cultures pending from ER given repeated infections Continue IV Ceftriaxone for now empirically but suspect symptoms from Bactrim use/lisinopril/baclofen w/ dehydration/poor PO intake contributing Hold lisinopril in setting of BLANQUITA Also could consider oxybutynin for symptoms but will address BLANQUITA/hyponatremia first to prevent interaction w/ medications PT/OT consults Monitor labs on repeat (2) Hyponatremia: Plan: recent lows but only to the 133/134 (?contribution from her SSRI given prior lows as well, bactrim use now, and dehydration) Holding lisinopril for BLANQUITA Repeat BMP following 2L NSS in ER, if still low can add urine osm/serum osm/urine na levels Additional 1L NSS @ 80cc/hr ordered for now, further per day team on labs/exam TSH wnl BMP in AM (3) UTI (urinary tract infection): Plan: frequent UTIs, macrobid use still complaints of urinary symptoms, blood cultures added by ER/provided Ceftriaxone WBC elevated but no fevers, will continue IV ceftriaxone. 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/u TILE MECHANIC HELPER outpatient as possible prolapse/issues w/ incontinence since having her children (4) Hypothyroidism: Plan: tsh wnl continue home levothyroxine (5) Hyperlipidemia: Plan: continue statin ck wnl (6) Chronic reflux esophagitis: Plan: continue ppi daily (7) Hypertension: Plan: on lisinopril 30mg daily holding lisinopril given BLANQUITA, BPs lower normal 127/55 monitor BPs (8) Elevated AST (SGOT): Plan: AST 51, checked end October was 40 suspect from bactrim/macrobid use, no heavy EtOH use Monitor levels on repeat --> if any worsening, could check hep panel/etc, but NO RUQ pain on exam at present History of Present Illness Chief Complaint: weakness, fatigue Primary Care Provider: Dayna Beyer MD 77 with PMHx significant for frequent UTIs. Placed on Bactrim/fluconazole by PCP, increasing weakness, pain to right flank, fatigue, discomfort to move urine. Feels like spasm to bladder. ER provider given Ceftriaxone, should work based on her prior culture data w/ Ecoli pansensitive except to FLQs. Blood cultures pending. Patient eval in C5 w/ at bedside. Had been on three courses of Macrobid earlier this year with ongoing frequency/pressure/burning. Ongoing issues w/ urinary incontinence issues since having her children. Denies any hx of kidney stones. Reported weakness, fatigue, darkened yellow urine most recently but prior had been more clear. Found to have BLANQUITA w/ Cr elevation to 1.63 as well as low sodium level. She notes she stays regular on her bowels, no pain, some suprapubic discomfort on exam/feeling like she has to pee. No diarrhea reported. Reports probably not keeping up with oral intake at home most recently, dry on exam, but reporting she does try and stay hydrated. No fevers at home but she notes she hasn't checked her temperature. No chest pain, but does have shortness of breath walking up the steps with her hx of asthma and this has been unchanged. She never has pain with this, or oxygen use. Stable use of inhalers without increased frequency or sputum production/changes. She does note she uses baclofen on occasion, recent tendinosis, doesn't take all the time but she did take a dose the day before last. Discussed suspecting symptoms stemming from recent Bactrim use, will plan for hydration and continue empiric abx for now but UA does not appear infected. 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 Code status discussed, FULL CODE at present. at bedside aware if need she would not want to be a vegetable but ok w/ CPR/intubation if meaningful return to quality of life expected. Allergies Allergy/AdvReac Type Severity Reaction Status Date / Time shrimp Allergy Severe Hives Verified 01/06/23 13:14 adhesive Allergy Intermediate TAPE ON Verified 01/06/23 13:14 EYES CAUSED "EYES TO SWELL SHUT" aspirin Allergy Unknown MAKES HER Verified 01/06/23 13:14 SHAKE celecoxib [From Celebrex] AdvReac Mild GI bleed Verified 01/06/23 13:14 prednisone AdvReac Unknown Abdominal Verified 01/06/23 13:14 Pain Unclassified Drugs Allergy Intermediate Venison-causes Uncoded 01/06/23 13:14 hives Home Medications Medication Instructions Recorded Confirmed Type cetirizine 10 mg tablet (Zyrtec) 5 mg PO QAM 09/26/18 01/06/23 History cyanocobalamin (vitamin B-12) 1,000 mcg PO QAM 09/26/18 01/06/23 History 1,000 mcg tablet (Vitamin B-12) omeprazole 20 mg tablet,delayed 20 mg PO QPM 09/26/18 01/06/23 History release naphazoline 0.025 %-pheniramine 1 drp ophthalmic (eye) UD PRN 1 07/31/19 01/06/23 History 0.3 % eye drops cholecalciferol (vitamin D3) 25 1,000 unit PO QAM 04/18/20 01/06/23 History mcg (1,000 unit) capsule (Vitamin D3) baclofen 10 mg tablet 10 mg PO Q8H PRN pain/spasm #60 08/13/21 01/06/23 Rx tabs metronidazole 0.75 % topical gel 1 applic topical QAM 11/19/21 01/06/23 History albuterol sulfate 90 mcg/actuation 2 puff inhalation Q6H PRN 11/26/21 01/06/23 Rx aerosol inhaler shortness of breath or wheezing #8.5 grams benzonatate 100 mg capsule 100 - 200 mg PO TID PRN cough 04/29/22 01/06/23 History fluticasone propionate 50 1 spray intranasal BID 04/29/22 01/06/23 History mcg/actuation nasal spray,suspension (Flonase Allergy Relief) lisinopril 30 mg tablet 30 mg PO QAM 04/29/22 01/06/23 History montelukast 10 mg tablet 10 mg PO QAM 04/29/22 01/06/23 History (Singulair) citalopram 20 mg tablet (Celexa) 20 mg PO DAILY #90 tabs 10/01/22 01/06/23 Rx levothyroxine 88 mcg tablet 88 mcg PO DAILY #90 tabs 10/27/22 01/06/23 Rx Breo Ellipta 100 mcg-25 mcg/dose 1 inh inhalation DAILY #180 ea 10/30/22 01/06/23 Rx powder for inhalation (fluticasone furoate-vilanterol) sulfamethoxazole 800 1 tab PO BID 14 days #28 tabs 12/26/22 01/06/23 Rx mg-trimethoprim 160 mg tablet (Bactrim DS) rosuvastatin 40 mg tablet 40 mg PO DAILY #90 tabs 01/06/23 01/06/23 Rx Past Med/Surg History Medical History Actinic keratosis Asthma maintenance inhaler-rescue inhaler use occasional during seasonal exacerbations-last rescue inhaler use 02/2022 Cervical facet syndrome Cervicalgia Chronic low back pain Chronic reflux esophagitis Claustrophobia with full mask Depression Diverticulosis of colon Essential tremor Hx of gastric ulcer treated Hyperlipidemia Hypertension Hypothyroidism Malignant melanoma of skin lt. upper shoulder-removed Rosacea Seborrheic keratosis Tubular adenoma of colon Surgical History H/O breast surgery R duct repair-denies limb restriction H/O cataract extraction Bilateral History of carpal tunnel release of both wrists History of colectomy Sigmoid History of esophagogastroduodenoscopy (EGD) History of hernia repair X3 History of hysterectomy History of lymph node dissection of left axilla History of tonsillectomy Hx of colonoscopy S/P medial meniscal repair R knee Family History Father Heart disease Mother Stroke syndrome Asthma Cerebral aneurysm Aunt Ovarian cancer Denies family history of Prostate cancer Coronary heart disease Breast cancer Lung disease Social History Smoking Status: Never smoker Second Hand Exposure: No; Do You Dip or Chew Tobacco: No; Hx Alcohol Use: No Hx Substance Use: No Preferred Language: Cameroonian Communication Ability: Effective Visual Impairment: No Limitations Circuit Clerk Required: No Beliefs That Will Affect Care: None marital status: Current Living Situation: Spouse How many Children do You have: 2 Other Information That Helps Us Care for You: No Feels Safe at Home: Yes Safety Concerns: Feels Safe At This Time Diet: regular caffeine: Yes Physical Activity Frequency: Daily Physical Activity Frequency Comment: Active deep breathing, walking, stretching Seatbelt Use: always Sunscreen Use: Yes (Protective clothing/covering ) Assistive Devices: Cane, Scooter/Electric Scooter and Walker Physical Exam Physical Exam: General: WD/WN female laying in bed, at bedside, NAD, no jaundice appreciated HEENT: head normocephalic, atraumatic, mm slightly dry, trachea midline Resp: CTA, no w/c, on room air CV: RRR, no significant m/r/g, no pitting edema GI: +BS, soft/N w/ exception reporting some suprapubic tenderness/need to urinate on palpation, no guarding/rigidity RUQ/R flank NONTENDER to palpation : no starks MSK/Neuro: no focal deficit/slurred speech, CN intact grossly Psych: AOx3, cooperative with exam Results & Data Results & Data Vital Signs (Past 12 Hours) Vital Signs Temp Pulse Pulse Resp BP BP Pulse Ox 01/06/23 12:38 66 01/06/23 12:00 65 14 98 01/06/23 12:00 127/55 L 01/06/23 11:30 66 12 98 01/06/23 11:30 110/51 L 01/06/23 11:00 71 14 96 01/06/23 11:00 109/52 L 01/06/23 10:51 71 16 97 01/06/23 11:11 68 20 97 01/06/23 11:11 68 20 109/52 L 97 01/06/23 10:15 36.2 C L 90 20 106/60 96 O2 Del Method 01/06/23 12:38 01/06/23 12:00 01/06/23 12:00 01/06/23 11:30 01/06/23 11:30 01/06/23 11:00 01/06/23 11:00 01/06/23 10:51 01/06/23 11:11 Room Air 01/06/23 11:11 Room Air 01/06/23 10:15 Room Air Laboratory Results 01/06/23 01/06/23 01/06/23 Range/Units 12:12 10:51 10:51 WBC (4.8-10.8) K/ul RBC (4.20-5.40) M/uL Hgb (12.0-16.0) g/dl Hct (37.0-47.0) % MCV (80.0-100.0) fL MCH (25.0-34.0) pg MCHC (32.0-36.0) g/dL RDW Std Deviation (36.4-46.3) fL RDW Coeff of Isaias (11.5-14.5) % Plt Count (130-400) K/uL MPV (9.4-12.4) fL Immature Gran % (Auto) % Neut % (Auto) % Lymph % (Auto) % Taney % (Auto) % Eos % (Auto) % Baso % (Auto) % Neut # (Auto) (1.40-6.50) K/uL Lymph # (Auto) (1.2-3.4) K/uL Taney # (Auto) (0.11-0.59) K/uL Eos # (Auto) (0-0.50) K/uL Baso # (Auto) (0-0.2) K/uL Immature Gran # (Auto) (0.01-0.20) K/uL Sodium (136-145) mmol/L Potassium (3.5-5.1) mmol/L Chloride (98-107) mmol/L Carbon Dioxide (21-32) mmol/L Anion Gap (3-11) BUN (6-23) mg/dl Creatinine (0.6-1.2) mg/dl Est Cr Clr Drug Dosing ml/min Est GFR ( Amer) ml/min Est GFR (Non-Af Amer) ml/min BUN/Creatinine Ratio (10-20) Glucose (70-99(Fasting)) mg/dl Calcium (8.6-10.3) mg/dl Magnesium (1.7-2.4) mg/dl Total Bilirubin (0.2-1.0) mg/dl AST (13-39) U/L ALT (7-52) U/L Alkaline Phosphatase (34-104) U/L Total Creatine Kinase (26-192) U/L Troponin I High Sens (0-14) pg/ml Total Protein (6.0-8.3) gm/dl Albumin (3.4-5.0) gm/dl Globulin (2.5-4.0) gm/dl Albumin/Globulin Ratio (0.9-2) TSH 1.757 (0.300-4.500) uIu/ml Urine Color Yellow Urine Appearance Clear (Clear) Urine pH 6.5 (4.5-7.5) Ur Specific Vernon 1.009 (1.000-1.030) Urine Protein Negative (Negative) Urine Glucose (UA) Negative (Negative) Urine Ketones Negative (Negative) Urine Blood Negative (Negative) Urine Nitrite Negative (Negative) Urine Bilirubin Negative (Negative) Urine Urobilinogen Negative (Negative) Ur Leukocyte Esterase Negative (Negative) SARS-CoV-2, RNA, NAAT NEGATIVE (NEGATIVE) 01/06/23 01/06/23 Range/Units 10:51 10:51 WBC 12.00 H (4.8-10.8) K/ul RBC 4.63 (4.20-5.40) M/uL Hgb 14.9 (12.0-16.0) g/dl Hct 43.3 (37.0-47.0) % MCV 93.5 (80.0-100.0) fL MCH 32.2 (25.0-34.0) pg MCHC 34.4 (32.0-36.0) g/dL RDW Std Deviation 44.8 (36.4-46.3) fL RDW Coeff of Isaias 13.1 (11.5-14.5) % Plt Count 272 (130-400) K/uL MPV 8.4 L (9.4-12.4) fL Immature Gran % (Auto) 0.5 % Neut % (Auto) 63.5 % Lymph % (Auto) 25.8 % Taney % (Auto) 8.0 % Eos % (Auto) 1.8 % Baso % (Auto) 0.4 % Neut # (Auto) 7.62 H (1.40-6.50) K/uL Lymph # (Auto) 3.10 (1.2-3.4) K/uL Taney # (Auto) 0.96 H (0.11-0.59) K/uL Eos # (Auto) 0.21 (0-0.50) K/uL Baso # (Auto) 0.05 (0-0.2) K/uL Immature Gran # (Auto) 0.06 (0.01-0.20) K/uL Sodium 128 L (136-145) mmol/L Potassium 5.1 (3.5-5.1) mmol/L Chloride 99 (98-107) mmol/L Carbon Dioxide 19 L (21-32) mmol/L Anion Gap 10 (3-11) BUN 31 H (6-23) mg/dl Creatinine 1.63 H (0.6-1.2) mg/dl Est Cr Clr Drug Dosing 26.5 ml/min Est GFR ( Amer) 34.4 ml/min Est GFR (Non-Af Amer) 29.7 ml/min BUN/Creatinine Ratio 19.0 (10-20) Glucose 104 H (70-99(Fasting)) mg/dl Calcium 9.4 (8.6-10.3) mg/dl Magnesium 2.3 (1.7-2.4) mg/dl Total Bilirubin 0.5 (0.2-1.0) mg/dl AST 51 H (13-39) U/L ALT 33 (7-52) U/L Alkaline Phosphatase 64 (34-104) U/L Total Creatine Kinase 105 (26-192) U/L Troponin I High Sens 10.2 (0-14) pg/ml Total Protein 7.3 (6.0-8.3) gm/dl Albumin 4.5 (3.4-5.0) gm/dl Globulin 2.8 (2.5-4.0) gm/dl Albumin/Globulin Ratio 1.6 (0.9-2) TSH (0.300-4.500) uIu/ml Urine Color Urine Appearance (Clear) Urine pH (4.5-7.5) Ur Specific Vernon (1.000-1.030) Urine Protein (Negative) Urine Glucose (UA) (Negative) Urine Ketones (Negative) Urine Blood (Negative) Urine Nitrite (Negative) Urine Bilirubin (Negative) Urine Urobilinogen (Negative) Ur Leukocyte Esterase (Negative) SARS-CoV-2, RNA, NAAT (NEGATIVE) Diagnostic Findings Abdomen/Pelvis CT 01/06/23 10:38 CT SCAN OF THE ABDOMEN AND PELVIS WITHOUT IV CONTRAST CLINICAL HISTORY: Right flank pain. Urinary tract infection. COMPARISON STUDY: Abdominal CT dated 03/18/2019 and 09/26/2018. TECHNIQUE: CT scan of the abdomen and pelvis is performed from the lung bases to the proximal femora. Images are reviewed in the axial, sagittal, and coronal planes. IV contrast was not administered for this examination. A dose lowering technique was utilized adhering to the principles of ALARA. CT DOSE: 746.61 mGy.cm FINDINGS: Lung bases: The heart is normal in size and without pericardial effusion. The coronary arteries are densely calcified. There are numerous bibasilar pulmonary nodules. The largest measures 5 mm and is in the right lower lobe on image #51 is unchanged. A 4 mm right middle lobe nodule is seen on image #12, and a 3 mm right lower lobe nodule is seen on image #5. 3 mm nodules in the lingula are seen on images #5 and #6. These are unchanged from prior examinations. A fat- containing Bochdalek hernia is noted on the left. No airspace consolidation or pleural effusion is identified. Liver: The unenhanced liver is normal in size, contour, and attenuation. There is no intrahepatic biliary ductal dilatation. A 10 mm lipoma is seen on the hepatic dome on image #55. Gallbladder: Unremarkable. Spleen: Normal in size and attenuation. Pancreas: Unremarkable. Adrenal glands: Unremarkable. Kidneys: The unenhanced kidneys demonstrate mild cortical atrophy and are without hydronephrosis. There are no renal calculi identified. There is no evidence of contour deforming renal mass lesion. Abdominal vasculature: The abdominal aorta is normal in course and caliber noting advanced atherosclerotic calcification. Bowel: There is mild colonic diverticulosis without CT evidence of acute diverticulitis. There is postoperative change from sigmoid colon resection and colocolonic anastomosis. No bowel obstruction is identified. The appendix is well-visualized and normal. Peritoneum: There is no intraperitoneal free air or abdominal ascites. There is evidence of previous ventral hernia repair. Lymphadenopathy: None. Pelvic viscera: The bladder is normal as visualized. The uterus is surgically absent. No adnexal lesion is seen. Skeletal structures: The skeletal structures are osteopenic. There is mild cervical spondylosis. Sclerotic change is seen in the sacroiliac joints. No lytic or blastic lesions are seen. IMPRESSION: 1. No acute infectious or inflammatory findings are identified in the abdomen or pelvis. 2. Colonic diverticulosis without CT evidence of acute diverticulitis. 3. Normal appendix. 4. Additional findings as above. ACT 112: Negative or not required by law. Electronically signed by: Domenico Zhao M.D. 01/06/2023 12:32 PM Chest X-Ray 01/06/23 10:38 SINGLE VIEW CHEST CLINICAL HISTORY: Generalized weakness. FINDINGS: An AP, portable, upright chest radiograph is compared to study dated 05/20/2022. The cardiomediastinal silhouette is unremarkable noting atherosclerotic calcification of the thoracic aorta. Chronic interstitial thickening is similar to previous. The lungs and pleural spaces are clear. No pneumothorax is seen. The skeletal structures are osteopenic. The bony thorax is grossly intact. Fusion hardware is seen in the lower cervical spine. IMPRESSION: No active disease in the chest. ACT 112: Negative or not required by law. Electronically signed by: Domenico Zhao M.D. 01/06/2023 11:13 AM Supervising Physician Co-Signing Physician Notes I personally saw and examined the patient. I verified all esparza points and agree with Sanjana Caceres PA-C with the following exceptions and/or additions: 77 year old female presents to the ER with right flank pain, generalized weakness and fatigue. O/E A&Ox3, HS RRR, no murmurs, Chest CTAB, no pitting edema, mild right CVA tenderness A/P Generalized weakness and fatigue / BLANQUITA, hyponatremia - suspect main problem is mainly due to BLANQUITA and hyponatremia. Hold lisinopril. NSS IV. Stop Bactrim. Repeat labs in AM. Recurrent UTI - recommend f/u urology. ceftriaxone pending urine culture. Doubtful pyelonephritis, suspect mild right sided CVA tenderness more MSK pain. Bladder spasms - consider oxybutynin if no UTI. Follow up urology encouraged. PG Care Time/CCT Total # of Minutes Spent Total Time Spent with Patient: Total time spent is greater than 50% in coordination of care (as documented) at patient's floor/unit and/or counseling patient: Coding Level of Care Code 25993 INT INP/OBS CARE MIN Diagnoses BLANQUITA (acute kidney injury) N17.9 Hyponatremia E87.1 UTI (urinary tract infection) N39.0 Hypothyroidism E03.9 Hyperlipidemia E78.5 Chronic reflux esophagitis K21.0 Hypertension I10 Elevated AST (SGOT) R74.01
[2023-01-06 15:23] LABS: BUN Creatinine Ratio 20.3 (10-20); Calcium 8.5 mg/dl (8.6-10.3); Creatinine Clr Calc Pharmacy 30.2 ml/min; Est GFR (African American) 40.3 ml/min; Est GFR (Non-African American) 34.7 ml/min; Potassium 4.8 mmol/L (3.5-5.1)
[2023-01-06] MEDS ORDERED: ACETAMINOPHEN 325 MG TAB PO PRN (15:50)
[2023-01-06] MEDS ORDERED: ALBUTEROL HFA 8 GM INHALER INH PRN (15:50)
[2023-01-06] MEDS ORDERED: ALUMINUM/MAGNESIUM SUSP 30 ML UDC PO PRN (15:50)
[2023-01-06] MEDS: BACLOFEN 10 MG TAB PO PRN (20:04)
[2023-01-06] MEDS: CITALOPRAM 20 MG TAB PO SCH (20:04)
[2023-01-06] MEDS: CETIRIZINE HCL 10 MG TABLET PO SCH (20:04)
[2023-01-06] MEDS: FLUTICASONE PROPIONATE NA SPR 16 GM BTL NAE SCH (20:05)
[2023-01-06] MEDS: ROSUVASTATIN CALCIUM 20 MG TAB PO SCH (20:05)
[2023-01-07] MEDS: LEVOTHYROXINE SODIUM 88 MCG TABLET PO SCH (05:42)
--- NOTE | 2023-01-07 06:05 | Electrocardiogram Report ---
Test Reason : Blood Pressure : / mmHG Vent. Rate : 076 BPM Atrial Rate : 076 BPM P-R Int : 156 ms QRS Dur : 084 ms QT Int : 384 ms P-R-T Axes : 003 -10 054 degrees QTc Int : 432 ms Normal sinus rhythm Normal ECG When compared with ECG of 06-MAY-2022 11:50, No significant change was found Confirmed by Pepito Martinez ([id number]) on 01/07/2023 6:05:49 AM Referred By: Confirmed By:Pepito Martinez
[2023-01-07 07:31] LABS: Basophils # (auto) 0.03 K/uL (0-0.2); Basophils % (auto) 0.3 %; Eosinophils # (auto) 0.22 K/uL (0-0.50); Eosinophils % (auto) 2.4 %; Hematocrit (blood only) 38.7 % (37.0-47.0); Immature Granulocytes # (auto) 0.03 K/uL (0.01-0.20); Immature Granulocytes % (auto) 0.3 %; Lymphocytes # (auto) 2.75 K/uL (1.2-3.4); Lymphocytes % (auto) 29.8 %; Mean Corpuscular Hemoglobin 32.2 pg (25.0-34.0); Mean Corpuscular Hgb Conc 33.6 g/dL (32.0-36.0); Mean Corpuscular Volume 95.8 fL (80.0-100.0); Mean Platelet Volume 8.2 fL (9.4-12.4); Monocytes # (auto) 0.74 K/uL (0.11-0.59); Neutrophils # (auto) 5.45 K/uL (1.40-6.50); Neutrophils % (auto) 59.2 %; Platelet Count 216 K/uL (130-400); RDW Coefficient of Variation 13.1 % (11.5-14.5); RDW Standard Deviation 46.7 fL (36.4-46.3); Red Blood Count 4.04 M/uL (4.20-5.40); White Blood Count 9.22 K/ul (4.8-10.8)
[2023-01-07 07:47] LABS: Bilirubin,Total 0.4 mg/dl (0.2-1.0); Calcium 8.3 mg/dl (8.6-10.3); Creatinine Clr Calc Pharmacy 31.1 ml/min; Est GFR (African American) 41.7 ml/min; Magnesium 2.3 mg/dl (1.7-2.4); Potassium 4.5 mmol/L (3.5-5.1); Total Protein 6.3 gm/dl (6.0-8.3)
[2023-01-07] MEDS: metroNIDAZOLE 0.75% TOPICAL GEL 45 GM TUBE TOP SCH (08:34)
[2023-01-07] MEDS: CYANOCOBALAMIN (B-12) 500 MCG TABLET PO SCH (08:34)
[2023-01-07] MEDS: CHOLECALCIFEROL 1,000 UNITS 25 MCG TAB PO SCH (08:34)
[2023-01-07] MEDS: FLUTICASONE PROPIONATE NA SPR 16 GM BTL NAE SCH ×2 (08:34→20:52)
[2023-01-07] MEDS: MONTELUKAST SODIUM 10 MG TABLET PO SCH (08:34)
[2023-01-07] MEDS: FLUTICASONE/VILANTEROL 100/25MCG 14 PUFFS/INHALER INH SCH (08:35)
[2023-01-07] MEDS ORDERED: CETIRIZINE HCL 10 MG TABLET PO SCH (09:00)
[2023-01-07] MEDS ORDERED: ROSUVASTATIN CALCIUM 20 MG TAB PO SCH (09:00)
[2023-01-07] MEDS ORDERED: CITALOPRAM 20 MG TAB PO SCH (09:00)
--- NOTE | 2023-01-07 09:59 | Hospitalist Progress Note ---
Date of Service January 07, 2023 Assessment & Plan (1) BLANQUITA (acute kidney injury): Plan: Creatinine on admission of 1.63, with a baseline of 0.8 CTAP without evidence of postobstructive cause of BLANQUITA Creatinine today 01/07 is 1.39, improving with oral and IV fluids Daily BMP (2) Urinary urgency: Plan: History of "recurrent UTI"/complaints of bladder spasm and urinary urgency, has been on Macrobid several times in 2022 and in the past has even been on 14-day courses of antibiotics for complaints of urinary tract infection. She has a history of hysterectomy. Does not note any sensation of prolapse, has not seen a medical coding specialist in the last several years as she was told she did not have to have routine screenings anymore. On presentation with UA generally negative, did collect urine culture which shows minimal growth. Given these findings less likely to have UTI, more likely that she has another pathology such as interstitial cystitis, possible bladder prolapse, overactive bladder, dehydration-related? Case discussed with Griselda Yang with urology, will get patient scheduled for outpatient follow-up with possible cystoscopy to further evaluate this. (3) Hyponatremia: Plan: Chronic hyponatremia with a baseline of around 133, however on admission with sodium of 128 and prerenal BLANQUITA suggesting hyponatremia worsened secondary to dehydration and acute illness. Sodium is since improved to 132 with IV fluids. (4) Hypothyroidism: Plan: Continue levothyroxine 88mcg daily. (5) Hyperlipidemia: Plan: Continue rosuvastatin. (6) Chronic reflux esophagitis: Plan: Continue daily PPI. (7) Hypertension: Plan: Typically takes lisinopril 30 mg daily. Holding this medication in the setting of BLANUQITA. BP 120s/70s today. Plan Ultimately anticipate discharge home given that patient's symptoms are continuing to improve with IV fluids. We will continue to give patient Rocephin and monitor blood cultures through tomorrow, discontinue tomorrow if negative. Follow-up with urology to be scheduled outpatient. Do not anticipate patient to have any specific home care needs on discharge. Admission and Anticipated Discharge Date Admission Date: January 06, 2023 Subjective Patient without any acute events overnight. Patient is hemodynamically stable and vitals are normal without fevers. No concerns from nursing staff expressed to this provider. Patient herself reports that she feels much better today, specifically the sensation of bladder spasm and lower pelvic pressure, as well as subjective sensation of weakness. Review of Systems Review of Systems: All systems reviewed & are unremarkable except as noted in Subjective Physical Exam Constitutional: WD/WN, vitals as above Respiratory: normal respiratory effort, lungs clear to auscultation Cardiovascular: RRR, no murmur, no edema Gastrointestinal (Abdomen): normal bowel sounds, soft, nontender, no hepatosplenomegaly No suprapubic tenderness to palpation Skin: no rashes, warm and dry Psychiatric: A+Ox3, euthymic affect Results & Data Results & Data Vital Signs (Past 12 Hours) Vital Signs Temp Pulse Resp BP Pulse Ox O2 Del Method 01/07/23 07:27 36.7 C 65 16 129/74 97 Room Air 01/06/23 22:01 36.6 C 65 16 116/69 97 Room Air PG Care Time/CCT Total # of Minutes Spent Total Time Spent with Patient: Total time spent is greater than 50% in coordination of care (as documented) at patient's floor/unit and/or counseling patient: Coding Level of Care Code 56354 SUB INP/OBS CARE 2/35MIN Diagnoses BLANQUITA (acute kidney injury) N17.9 Urinary urgency R39.15 Hyponatremia E87.1 Hypothyroidism E03.9 Hyperlipidemia E78.5 Chronic reflux esophagitis K21.0 Hypertension I10
[2023-01-07] MEDS ORDERED: SODIUM CHLORIDE 0.9% 1000ML 500 ML IV ONE (10:33)
[2023-01-07] MEDS ORDERED: cefTRIAXone SODIUM 2,000 MG in DEXTROSE 5% 50 ML IV SCH (12:00)
[2023-01-07] MEDS: CETIRIZINE HCL 10 MG TABLET PO SCH (20:52)
[2023-01-07] MEDS: CITALOPRAM 20 MG TAB PO SCH (20:52)
[2023-01-07] MEDS: ROSUVASTATIN CALCIUM 20 MG TAB PO SCH (20:52)
[2023-01-07] MEDS: BACLOFEN 10 MG TAB PO PRN (20:55)
[2023-01-08] MEDS: LEVOTHYROXINE SODIUM 88 MCG TABLET PO SCH (06:08)
[2023-01-08] MEDS ORDERED: PANTOprazole 40 MG TAB PO SCH (09:00)
[2023-01-08] MEDS: FLUTICASONE/VILANTEROL 100/25MCG 14 PUFFS/INHALER INH SCH (09:13)
[2023-01-08] MEDS: FLUTICASONE PROPIONATE NA SPR 16 GM BTL NAE SCH (09:13)
[2023-01-08] MEDS: metroNIDAZOLE 0.75% TOPICAL GEL 45 GM TUBE TOP SCH (09:14)
[2023-01-08] MEDS: CYANOCOBALAMIN (B-12) 500 MCG TABLET PO SCH (09:14)
[2023-01-08] MEDS: CHOLECALCIFEROL 1,000 UNITS 25 MCG TAB PO SCH (09:14)
[2023-01-08] MEDS: MONTELUKAST SODIUM 10 MG TABLET PO SCH (09:14)
[2023-01-08 09:17] LABS: BUN Creatinine Ratio 19.8 (10-20); Calcium 8.6 mg/dl (8.6-10.3); Creatinine Clr Calc Pharmacy 37.3 ml/min; Est GFR (African American) 51.9 ml/min; Est GFR (Non-African American) 44.7 ml/min; Potassium 4.2 mmol/L (3.5-5.1)
--- NOTE | 2023-01-08 10:14 | Discharge Summary ---
Discharge Summary Date of Service January 08, 2023 Notes For Next Care Provider Holding lisinopril for now in the setting of BLANQUITA, BP 160s on discharge, follow- up basic metabolic panel and either consider other medications or resume lisinopril (perhaps at lower dose) To establish care with [facility] for evaluation of bladder spasms/urinary urgency (differential includes atrophic vaginitis vs interstitial cystitis vs recurrent UTI vs prolapse) Admission HPI Per Admitting Provider 77 with PMHx significant for frequent UTIs. Placed on Bactrim/fluconazole by PCP, increasing weakness, pain to right flank, fatigue, discomfort to move urine. Feels like spasm to bladder. ER provider given Ceftriaxone, should work based on her prior culture data w/ Ecoli pansensitive except to FLQs. Blood cultures pending. Patient joey in C5 w/ at bedside. Had been on three courses of Macrobid earlier this year with ongoing frequency/pressure/burning. Ongoing issues w/ urinary incontinence issues since having her children. Denies any hx of kidney stones. Reported weakness, fatigue, darkened yellow urine most recently but prior had been more clear. Found to have BLANQUITA w/ Cr elevation to 1.63 as well as low sodium level. She notes she stays regular on her bowels, no pain, some suprapubic discomfort on exam/feeling like she has to pee. No diarrhea reported. Reports probably not keeping up with oral intake at home most recently, dry on exam, but reporting she does try and stay hydrated. No fevers at home but she notes she hasn't checked her temperature. No chest pain, but does have shortness of breath walking up the steps with her hx of asthma and this has been unchanged. She never has pain with this, or oxygen use. Stable use of inhalers without increased frequency or sputum production/changes. She does note she uses baclofen on occasion, recent tendinosis, doesn't take all the time but she did take a dose the day before last. Discussed suspecting symptoms stemming from recent Bactrim use, will plan for hydration and continue empiric abx for now but UA does not appear infected. 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 Code status discussed, FULL CODE at present. at bedside aware if need she would not want to be a vegetable but ok w/ CPR/intubation if meaningful return to quality of life expected. Admission Exam Per Admitting Provider General: WD/WN female laying in bed, at bedside, NAD, no jaundice appreciated HEENT: head normocephalic, atraumatic, mm slightly dry, trachea midline Resp: CTA, no w/c, on room air CV: RRR, no significant m/r/g, no pitting edema GI: +BS, soft/N w/ exception reporting some suprapubic tenderness/need to urinate on palpation, no guarding/rigidity RUQ/R flank NONTENDER to palpation : no starks MSK/Neuro: no focal deficit/slurred speech, CN intact grossly Psych: AOx3, cooperative with exam Principal Dx & Hospital Course #1 = Principal Diagnosis (1) BLANQUITA (acute kidney injury): Creatinine on admission of 1.63, with a baseline of ~0.8, improved to 1.16 on day of discharge CTAP without evidence of postobstructive cause of BLANQUITA Follow-up BMP per PCP, continue to hold lisinopril for now given this BLANQUITA, and did encourage oral fluid intake as suspect patient is drinking a lot of beverages that have a diuretic effect (coffee/tea), and/or not drinking enough water in her typical day (2) Urinary urgency: History of "recurrent UTI"/complaints of bladder spasm and urinary urgency, has been on Macrobid several times in 2022 and in the past has even been on 14-day courses of different antibiotics for complaints of urinary tract infection. She has a history of hysterectomy. No history of vaginal deliveries. Does not note any sensation of prolapse; has not seen a account support specialist in the last several years as she was told she did not have to have routine screenings anymore. On presentation with UA generally negative, did collect urine culture which shows minimal growth. Given these findings less likely to have UTI, more likely that she has another pathology such as interstitial cystitis, possible bladder prolapse, overactive bladder, dehydration-related? Case discussed with Griselda Yang with Urology, will get patient scheduled for outpatient follow-up with possible cystoscopy to further evaluate this. Patient without symptoms of urinary urgency/bladder spasm and discharge. (3) Hyponatremia: Chronic hyponatremia with a baseline of around 133, however on admission with sodium of 128 and prerenal BLANQUITA suggesting hyponatremia worsened secondary to dehydration and acute illness. Sodium is since improved to 132 with IV/p.o. fluids. (4) Hypothyroidism: Continue levothyroxine 88mcg daily. (5) Hyperlipidemia: Continue rosuvastatin. (6) Chronic reflux esophagitis: Continue daily PPI. (7) Hypertension: Typically takes lisinopril 30 mg daily. Holding this medication in the setting of BLANQUITA this admission. Recommend follow-up with PCP, can consider resumption of medication versus other agent. Plan Discharge home, no care needs, patient lives with . Follow-up with urology for bladder spasm/urinary urgency Discharge Exam Constitutional WD/WN, vitals as above Psychiatric A+Ox3, euthymic affect Updated Medication List Medication Instructions Recorded Confirmed Type cetirizine 10 mg tablet (Zyrtec) 5 mg PO QAM 09/26/18 01/06/23 History cyanocobalamin (vitamin B-12) 1,000 mcg PO QAM 09/26/18 01/06/23 History 1,000 mcg tablet (Vitamin B-12) omeprazole 20 mg tablet,delayed 20 mg PO QPM 09/26/18 01/06/23 History release naphazoline 0.025 %-pheniramine 1 drp ophthalmic (eye) UD PRN 1 07/31/19 01/06/23 History 0.3 % eye drops cholecalciferol (vitamin D3) 25 1,000 unit PO QAM 04/18/20 01/06/23 History mcg (1,000 unit) capsule (Vitamin D3) baclofen 10 mg tablet 10 mg PO Q8H PRN pain/spasm #60 08/13/21 01/06/23 Rx tabs metronidazole 0.75 % topical gel 1 applic topical QAM 11/19/21 01/06/23 History albuterol sulfate 90 mcg/actuation 2 puff inhalation Q6H PRN 11/26/21 01/06/23 R x aerosol inhaler shortness of breath or wheezing #8.5 grams benzonatate 100 mg capsule 100 - 200 mg PO TID PRN cough 04/29/22 01/06/23 History fluticasone propionate 50 1 spray intranasal BID 04/29/22 01/06/23 History mcg/actuation nasal spray,suspension (Flonase Allergy Relief) lisinopril 30 mg tablet 30 mg PO QAM 04/29/22 01/06/23 History montelukast 10 mg tablet 10 mg PO QAM 04/29/22 01/06/23 History (Singulair) citalopram 20 mg tablet (Celexa) 20 mg PO DAILY #90 tabs 10/01/22 01/06/23 Rx levothyroxine 88 mcg tablet 88 mcg PO DAILY #90 tabs 10/27/22 01/06/23 Rx Breo Ellipta 100 mcg-25 mcg/dose 1 inh inhalation DAILY #180 ea 10/30/22 01/06/23 Rx powder for inhalation (fluticasone furoate-vilanterol) rosuvastatin 40 mg tablet 40 mg PO DAILY #90 tabs 01/06/23 01/06/23 Rx Hospital Stay Data Consultations 01/06/23 12:57 ED Decision to Admit Stat Diagnostic Imagining Performed 01/06/23 10:38 CT abd pelvis wo con Stat Pending Results Patient Have Any Pending Studies at Discharge: No Discharge Instructions Given to Patient (Per Discharging Provider) You were admitted to the hospital for bladder spasms and acute kidney injury. We believe that your kidney injury was due to a bit of dehydration, coupled with a medication you are on called lisinopril. This medication typically is very well tolerated, but when someone gets a bit dehydrated it can make your kidneys a little dry (think raisins instead of grapes). Your numbers improved with time and fluids. We recommend that you drinks at least 1500cc of water daily, and increase that number if your urine is not clear or light yellow, or if you are working outside or exercising that day. Your urine cultures did not grow any bacteria. That could be for a few reasons; first, it could be because the antibiotic you were already on killed all of the bacteria. It could also be due to problems such as vaginal dryness (which can mimic UTI and give us ladies burning with urination), a syndrome called interstitial cystitis (overactive bladder which can cause spasm sensations), or other causes. I talked with the Urology team and they will call you to schedule an appointment. If you do not hear from their office please call [phone] to schedule an appointment for evaluation of your bladder spasms to make sure it is not something other than a UTI. Please hold off on taking your lisinopril for now, until you either talk to your doctor on the phone, or see them in the office. I recommend you see your family doctor in the next 2 weeks to look at your blood pressure and to see if you should restart your lisinopril. The office should call you, but if you don't hear from them, please call to schedule an appointment. Total Time Total Time Spent Total Time Spent (In Minutes): 35 minutes Coding Level of Care Code 38639 INP/OBS DISCH >30 MIN Diagnoses BLANQUITA (acute kidney injury) N17.9 Urinary urgency R39.15 Hyponatremia E87.1 Hypothyroidism E03.9 Hyperlipidemia E78.5 Chronic reflux esophagitis K21.0 Hypertension I10
== END 2023-01-08 12:53 | disposition home or self-care (01) | DRG 683 ==
LOC: ED 10:10 → SUATTDRO 13:59 → 3N 13:59

== ENCOUNTER 2023-10-21 06:54 | Inpatient (IN) ==
--- NOTE | 2023-10-20 15:39 | Anesthesiology Consultation ---
Date of Service October 20, 2023 Assessment & Plan (1) Encounter for pre-operative examination: - Infectious disease screening: Per assessment on 10/20/23 No known infectious disease contacts or current infectious disease symptoms. No noted recent Covid positive test result. - Medication instructions: Patient was late add-on case 10/20/23 PM ( DOS 10/21/23). Patient spoke with PAT RN 10/20/23, had already taken 10/20/23 AM fenofibrate dose. Patient aware to not take DOS. Okay to proceed as scheduled per Dr. Joseph. - S/P C6-7 ACDF, C5 corpectomy (05/19/22): Grade view 1, Glidescope #3, ETT 7.0, atraumatic at [facility] - Cardiology visit (07/01/23): "Negative DSEdobutamine induced chest pain, question risk small vessel diseasestarted on Imdur.. [id number], now on fibrate. LDL 66 following rosuvastatin 40.. GERD.. Essential tremor.. We discussed results of recent stress test. Has had some questionable improvement in chest symptoms since being on Imdur. For now we will continue. If symptomatic benefit unclear in the future okay to stop medication. Patient okay to resume all prior activities without restrictions from a cardiac standpoint. Encouraged to increase more regular exercise. Continue secondary ASCVD prevention. No change to current aspirin, statin, and recently started fenofibrate. Follow-up in 9 months. If stable can follow-up with cardiology as needed.. Underwent DSE 05/28/2023negative for ischemia at 90% MPHR LV size, borderline LVH, LVEF 60%, trace AI, questionable Jack with no LVOT obstruction and possible interatrial [id number] shunt by Doppler. Normal RA/PA during study had dobutamine induced chest pain. Trial of antianginal therapy recommended for possible small vessel disease. Started on Imdur 30 mg daily." - General surgery visit (10/20/23): "The present situation was discussed with the patient I feel on the clinical presentation and the laboratory confirmed that she does have a common bile duct obstruction that may be a ball-valve effect of a debris or stone accounting for intermittent dark-colored urine and elevated liver functions and this is most likely secondary to cholelithiasis.. Placing the picture together and she had not common bile duct stones noted in the gallbladder ultrasound on 10/07/2023 with common bile duct dilatation and no stones in the gallbladder on 10/15/2023 suspect that she was passing stones and may be continues to pass stones accounting for the elevated liver function tests the discomfort that she is having.. Options of therapy at this time was discussed with the patient including proceeding with an open cholecystectomy and intraoperative cholangiogram and at that time depending on the findings if there may be some sludge present or small stones we may be able to flush it with some glucagon injection and if not and she does have common bile duct stones that are significant then we will consult gastroenterology to do an ERCP.. The other option will be to do an ERCP first and then proceed with cholecystectomy.. The patient favors the first option since there may be something that we can clean up intraoperatively rub proceed with an ERCP" - Case/cardiac hx/DSE findings reviewed with Dr. Joseph. He feels patient okay to proceed with given surgery as scheduled without further cardiac evaluation and/or testing prior to surgery from his perspective. Patient acceptable risk for surgery pending evaluation DOS. Chart Review Chart Review: Patient NOT seen in Pre Admission Testing History Surgery Operation Date: 10/21/23 08:50 Proposed Procedures p Laparoscopic Cholecystectomy Intraoperative Cholangiogram, Possible Open - Francisco Javier Lorenzo MD, FACS Height/Weight Height: 5 ft 2 in Weight: 73.936 kg Allergies Allergy/AdvReac Type Severity Reaction Status Date / Time shrimp Allergy Severe Hives Verified 10/20/23 15:24 adhesive Allergy Intermediate Eye Verified 10/20/23 15:31 swelling (from tape over eyes) aspirin Allergy Mild "Makes Verified 10/20/23 15:31 shake", pain venison Allergy Mild Hives Verified 10/20/23 15:24 prednisone AdvReac Mild Abdominal Verified 10/20/23 15:24 Pain celecoxib [From Celebrex] AdvReac Unknown Unknown Verified 10/20/23 15:24 Medications Home Medications Medication Instructions Recorded Confirmed Last Taken cetirizine 10 mg tablet (Zyrtec) 10 mg PO QPM 09/26/18 10/20/23 05/18/22 20:00 cyanocobalamin (vitamin B-12) 1,000 mcg PO QAM 09/26/18 10/20/23 05/14/23 1,000 mcg tablet (Vitamin B-12) naphazoline 0.025 %-pheniramine 1 drp ophthalmic (eye) UD PRN Other 07/31/19 10/20/23 05/19/22 06:00 0.3 % eye drops (Naphcon-A) cholecalciferol (vitamin D3) 25 1,000 unit PO QAM 04/18/20 10/20/23 05/14/23 mcg (1,000 unit) capsule (Vitamin D3) metronidazole 0.75 % topical gel 1 applic topical QAM 11/19/21 10/20/23 05/14/23 albuterol sulfate 90 mcg/actuation 2 puff inhalation Q6H PRN 11/26/21 10/20/23 05/19/22 06:30 aerosol inhaler shortness of breath or wheezing #8.5 grams fluticasone propionate 50 1 spray intranasal BID 04/29/22 10/20/23 05/14/23 mcg/actuation nasal spray,suspension (Flonase Allergy Relief) baclofen 10 mg tablet 10 mg PO Q8H PRN pain/spasm #60 04/03/23 10/20/23 Unknown tabs montelukast 10 mg tablet 10 mg PO QAM 05/14/23 10/20/23 05/14/23 (Singulair) pantoprazole 40 mg tablet,delayed 40 mg PO DAILY #90 tabs 05/19/23 10/20/23 Unknown release (Protonix) levothyroxine 88 mcg tablet 88 mcg PO QAM #90 tabs 10/05/23 10/20/23 Unknown acetaminophen 300 mg-codeine 30 mg 1 tab PO Q8H PRN pain #6 tabs 10/15/23 Unknown tablet citalopram 20 mg tablet (Celexa) 20 mg PO HS 10/20/23 10/20/23 Unknown fenofibrate nanocrystallized 48 mg 48 mg PO QAM 10/20/23 10/20/23 Unknown tablet (Tricor) fluticasone furoate 100 1 inh inhalation QAM 10/20/23 10/20/23 Unknown mcg-vilanterol 25 mcg/dose inhalation powder (Breo Ellipta) rosuvastatin 20 mg tablet 20 mg PO HS 10/20/23 10/20/23 Unknown Past Medical History Medical History Actinic keratosis Allergic rhinitis Asthma "Well controlled" per patient Cervical facet syndrome Cervicalgia Cholelithiasis Chronic low back pain Chronic reflux esophagitis Depression Diverticulosis of colon Essential tremor Hx of gastric ulcer Hyperlipidemia Hypertension Hypothyroidism Impaired fasting glucose Malignant melanoma of skin Left upper shoulder > removed Osteoarthritis Rosacea Seborrheic keratosis Tubular adenoma of colon Vitamin D deficiency Past Family History Family History Father Heart disease Mother Cerebral aneurysm Stroke syndrome Asthma Aunt Ovarian cancer Other No family history of adverse response to anesthesia Denies family history of Prostate cancer Coronary heart disease Breast cancer Lung disease Past Surgical History Surgical History H/O breast surgery Right duct repair Denies limb restriction H/O cataract extraction Bilateral History of carpal tunnel release of both wrists History of cervical discectomy 05/19/22 @ [facility]--normal ROM History of colectomy Sigmoid (for diverticulitis) History of esophagogastroduodenoscopy (EGD) History of hernia repair x3 History of hysterectomy History of lymph node dissection of left axilla History of tonsillectomy Hx of colonoscopy S/P medial meniscal repair R knee Social History Smoking Status: Never smoker Do You Dip or Chew Tobacco: No Hx Alcohol Use: No Hx Substance Use: No substance use type: does not use Lab Results Anesthesia Preop Results Results Anesthesia Widget: WBC 7.92 K/ul (4.8-10.8) 10/15/23 Hgb 14.7 g/dl (12.0-16.0) 10/15/23 Hct 44.4 % (37.0-47.0) 10/15/23 Plt 249 K/uL (130-400) 10/15/23 Na 134 mmol/L (136-145) L 10/15/23 K 3.8 mmol/L (3.5-5.1) 10/15/23 Cl 102 mmol/L (98-107) 10/15/23 CO2 23 mmol/L (21-32) 10/15/23 BUN 13 mg/dl (6-23) 10/15/23 Creat 0.97 mg/dl (0.6-1.2) 10/15/23 Glucose Level 99 mg/dl (70-99(Fasting)) 10/15/23 Urine Color Yellow 10/15/23 Urine Appearance Clear (Clear) 10/15/23 Urine pH 5.0 (4.5-7.5) 10/15/23 Urine Specific [place] 1.010 (1.000-1.030) 10/15/23 Urine Protein Negative (Negative) 10/15/23 Urine Glucose (UA) Negative (Negative) 10/15/23 Urine Ketones Negative (Negative) 10/15/23 Urine Blood Negative (Negative) 10/15/23 Urine Nitrite Negative (Negative) 10/15/23 Urine Bilirubin Negative (Negative) 10/15/23 Urine Urobilinogen Negative (Negative) 10/15/23 Urine Leukocyte Esterase Negative (Negative) 10/15/23 Testing Electrocardiogram Date: 10/15/23 SR with occasional PVCs at 73bpm. Cannot r/o anterior infarct, age undetermined. NS TWA. Compared to 05/14/2023 ECG, PVCs now present per chief wharfinger comparison. Chest X-Ray Date: 10/15/23 FINDINGS: A PA chest radiograph is compared to study dated 05/14/2023. The heart is mildly enlarged and noting atherosclerotic calcification of the thoracic aorta. The pulmonary vasculature is noncongested. The lungs and pleural spaces are clear. No pneumothorax is seen. The skeletal structures are osteopenic. The bony thorax is grossly intact. Fusion hardware is noted in the lower cervical spine. IMPRESSION: Mild cardiomegaly with no active disease in the chest. Stress Test Date: 05/28/23 Type: DSE Negative DSE/stress ECG for ischemia at 90% MPHR. Normal restive LV size. Borderline cLVH. LVEF 60-65%. Questionable mitral valve JCAK with no LVOT obsrtuction. Possible interatrial left to right shunt by doppler. Normal est rest PA and RA pressures. *DSE reviewed at follow-up cardiology visit 07/2023* Other Testing Abdomen ultrasound Date: 10/07/23 1. Cholelithiasis. No gallbladder wall thickening. 2. Distended common bile which measures up to 1 cm. This raises the possibility of nonvisualized choledocholithiasis or an occult obstructing lesion. ERCP recommended for further evaluation. Gallbladder ultrasound Date: 10/15/23 IMPRESSION: 1. No gallstones are identified and there is no sonographic evidence of acute cholecystitis. 2. Nonspecific dilatation of the common bile duct is similar to previous. This measures up to 10 mm and is of indeterminate significance. 3. Hepatic steatosis.
[2023-10-21] MEDS ORDERED: PROPOFOL IV EMULSION 10 MG/ML 20 ML VIAL IV ONE (06:55)
[2023-10-21] MEDS ORDERED: LIDOCAINE 2% 2 ML VIAL/AMP(20MG/ML) INFIL ONE (06:55)
[2023-10-21] MEDS ORDERED: ONDANSETRON INJ 2 MG/ML 2 ML VIAL ONE (06:55)
[2023-10-21] MEDS ORDERED: ROCURONIUM BROMIDE 10 MG/ML 5 ML VIAL IV ONE (06:55)
[2023-10-21] MEDS ORDERED: fentaNYL citrate PF 100 MCG/2 ML VIAL ONE ×2 (06:55→10:24)
[2023-10-21] MEDS ORDERED: DEXAMETHASONE SOD INJ 4 MG/ML VIAL ONE (06:55)
[2023-10-21] MEDS ORDERED: GLYCOPYRROLATE 0.2 MG/ML VIAL ONE (06:55)
[2023-10-21] MEDS ORDERED: SUGAMMADEX SODIUM 200 MG/2 ML VIAL IV ONE (06:56)
[2023-10-21] MEDS: LR 15ML/HR IV SCH (07:38)
[2023-10-21] MEDS ORDERED: ePHEDrine sulfate 50 MG/ML AMP IV PRN (08:19)
[2023-10-21] MEDS ORDERED: ATROPINE SULFATE 0.1 MG/ML 10ML SYR IV PRN (08:19)
[2023-10-21] MEDS ORDERED: ONDANSETRON INJ 2 MG/ML 2 ML VIAL IV PRN ×2 (08:19→09:57)
--- NOTE | 2023-10-21 08:20 | History & Physical Bridge Note ---
Date of Service October 21, 2023 History & Physical Bridge Note I have examined the patient, reviewed the History & Physical and in the interval since the performance of the History & Physical I have noted the following changes of clinical significance: no changes noted SO at bedside all question answered
[2023-10-21] MEDS: cefOXitin 1,000 MG in DEXTROSE 5 % MINI-B 50 ML IV ONE (09:03)
[2023-10-21] MEDS ORDERED: GLUCAGON FOR INJ 1 MG VIAL ONE (09:41)
[2023-10-21] MEDS ORDERED: oxyCODONE HCL IR 5 MG TAB (IMMEDIATE RELEASE) PO PRN (09:57)
[2023-10-21] MEDS ORDERED: MoRPHine SULFATE 4 MG/ML 1 ML CARP\\VIAL IV PRN (09:57)
--- NOTE | 2023-10-21 10:20 | Post Operative Brief Note ---
Immediate Post Op Note v1 Date of Surgery October 21, 2023 Pre & Post Diagnosis Operation Date: 10/21/23 08:50 Pre-Op Diagnosis: Cholelithiasis Post-Op Diagnosis: Cholelithiasis Cirrhosis I identified the patient and participated in the time-out.: Yes Procedure Operation Date: 10/21/23 08:50 Actual Procedures p Laparoscopic Cholecystectomy with Intraoperative Cholangiogram Truecut Liver Biopsy Right Lobe of Liver - Francisco Javier Lorenzo MD, FACS Surgeon Francisco Javier Lorenzo MD, FACS Commercial Relationship Manager Samson FINNEGAN Estimated Blood Loss 10 Findings Consistent with Post-Op Diagnosis Drains Vijay Drain (19fr)
[2023-10-21] MEDS: LIDOCAINE 1%/EPINEPHRINE 1:100,000 20 ML VIAL ONE (10:21)
--- NOTE | 2023-10-21 10:37 | Fluoroscopy Report ---
[place] cholangiogram OR CLINICAL HISTORY: CHOLANGIOGRAM TECHNIQUE: 3 views were obtained with the C-arm in the OR with the above procedure. Total fluoroscopy time was 2.2 seconds. Radiation dose was 0.32 mGy. Comparison: Comparison is made to gallbladder ultrasound 10/21/2023 FINDINGS/IMPRESSION: Intraoperative images were obtained of laparoscopic cholangiogram. Prominence of the common bile duct is seen without filling defects and the final image. Please correlate with intraoperative fluoroscopy and operative report. ACT 112: Negative or not required by law. Electronically signed by: Guru Butcher M.D. 10/21/2023 10:35 AM
[2023-10-21] MEDS: ACETAMINOPHEN 1000 MG/100 ML IV IV ONE (10:44)
--- NOTE | 2023-10-21 10:46 | Operative Report ---
PG Post Operative Report Pre & Post Diagnosis Operation Date: 10/21/23 08:50 Pre-Op Diagnosis: Cholelithiasis Post-Op Diagnosis: Cholelithiasis Cirrhosis I identified the patient and participated in the time-out.: Yes Procedure Operation Date: 10/21/23 08:50 Actual Procedures p Laparoscopic Cholecystectomy with Intraoperative Cholangiogram Truecut Liver Biopsy Right Lobe of Liver - Francisco Javier Lorenzo MD, FACS The patient was brought into the operating room theater supine position general endotracheal anesthesia the abdomen was prepped Betadine solution properly draped systemic antibiotics on board patient identified timeout was had made a small incision approximately 4 cm above the umbilical area Veress needle introduced CO2 insufflated approximately 8 mmHg 5 mm trocar followed point of entry specter no injury identified the liver was multinodular around the edges consistent with cirrhosis the gallbladder was distended at this point a 5 mm right upper quadrant trocar site was placed with preemptive local analgesic 0.5% Marcaine plain and 2 other 5 mm subcostal ports were placed the right upper quadrant lateral trocar site we introduced a larger grasper and elevated the gallbladder and do as being tense we aspirated the bile was dark yellow once sufficiently decompressed we then grabbed for we inserted the aspirating needle elevated the gallbladder which was not acutely inflamed the wall was thickened probably longstanding distention but this traction we were able to spread out the triangle of Calot was slightly dilated a clip was placed at the proximal takeoff from the gallbladder the window was created we identified the space between the cystic duct and the artery a clip was placed at the takeoff of the cystic duct small opening cystic duct was made #4 urethral catheter transversing the abdominal wall was positioned x-rays were taken which showed markedly dilated common bile duct no flow really into the duodenum of any significance there appeared to be a few specks of small stones in the distal portion of the common bile duct we at this point gave him some glucagon and then flushed the system multiple times we then repeated the cholangiogram and those 2 small specks were not seen but at this time we can see a filling defect distally well- rounded most likely a stone but we did place the patient in reverse Trendelenburg and this filling defect actually migrated more distally this point we then removed the Cholangiocath secured the cystic duct twice well away from the common bile duct that we could not see and the gallbladder was taken out in antegrade fashion using the electrocautery hemostasis was excellent in the gallbladder fossa the gallbladder was then removed from the liver placed in an Endopouch and taken out intact through the epigastric port this point a Gume-Cut needle was brought up on the field and placed between the 2 lateral trocar sites into the liver obtaining good specimen of the liver biopsy we at this point placed the 19 round Nirav-Chi that we brought him medially and taken out laterally to the right upper quadrant trocars placed just underneath the liver and on Morison's pouch secured to the skin with 2-0 silk suture individual trocars removed the last umbilical trocar wounds were closed with 4 Monocryl Steri-Strips applied the procedure was tolerated well by the patient estimated blood loss 10 cc AddendumC Vazquez FINNEGAN was present for camera work and closing of the wound I spoke with her Joseph at [phone] in the waiting area town and the patient would be admitted and this we discussed with the patient yesterday depending what we had found she may need to be admitted and undergo an ERCP and also told her specifically that the liver was grossly cirrhotic Surgeon Francisco Javier Lorenzo MD, FACS [employer] Design Engineer Samson FINNEGAN Estimated Blood Loss 10 Findings Consistent with Post-Op Diagnosis Cirrhosis of the liver Common bile duct stone Specimens Gallbladder and cannot Complications None Indications And back pain dilated common bile Description of Procedure merda I attest to the content of the Intraoperative Record and any orders documented therein. Any exceptions are noted below.
[2023-10-21] MEDS: fentaNYL citrate PF 100 MCG/2 ML VIAL IV PRN (11:04)
--- NOTE | 2023-10-21 11:16 | Gastrointestinal Consultation ---
Date of Consultation October 21, 2023 Assessment & Plan (1) History of cholecystectomy: 78 year old female POD #1 CCY for gallstones who is admitted from PACU as IOC is concerning for a CBD stone, Tg LOVE asked to provider biliary coverage. Appreciate postoperative orders per general surgery Once admitted, please update lipase and hepatic function panel NPO after midnight Tentative plan for ERCP tomorrow Operative report suggests cirrhotic appearing liver, she should follow up with her established gastroenterology practice for ongoing management of cirrhosis We appreciate assistance in the management of any serological abnormality and corrections to include: hemoglobin >7, INR <2, platelets >50,000, potassium levels >3.5 but <5.3, and sodium levels within 5 points of the reference range prior to endoscopic evaluation. Thank you for allowing us to participate in the care of this patient. Please call with any acute changes, questions or concerns. Please see addendum below with additional recommendation from my supervising physician. Supervising Physician Co-Signing Physician Notes I personally saw and evaluated the patient on 10/21/2023 with SIVAN Diaz and agree with her findings and plan of care. Abdomen tender on palpation mainly in RUQ and RLQ. 78 y/o F s/p POD 1 with cholecystectomy for cholelithiasis found to have CBD stone on IOC. GI consulted for ERCP. AST 157, ALT 66, ALP 112, total bilirubin 1. Her liver appears normal on abdominal ultrasound but appeared grossly cirrhotic during her surgery today so a liver biopsy was performed. We will plan for ERCP tomorrow. NPO at midnight. Trend daily LFTs. Pain control per primary team. If liver biopsy shows evidence of advanced fibrosis or cirrhosis she will need outpatient hepatology follow up. Mary Lou Gentile, Gastroenterology and Hepatology History of Present Illness Reason for Consultation: ERCP Requesting Physician: Dr. Lorenzo Attending Physician: Francisco Javier Lorenzo MD, FACS History of Present Illness 78 year old female with history of OA, asthma, HTN, dyslipidemia, hypothyroidism, gallstones s/p CCY who is directly admitted as IOC concerning for a CBD stone. Tg LOVE asked to provide biliary coverage. Pt was seen and evaluated, chart reviewed. She is recovering in PACU. History is limited because of this. Denies abd pain presently. No fever, chills, CP, SOB. IOC 2023: Cholecystectomy. Cannulation of the cystic duct with injection of contrast demonstrates several filling defects within the distal common bile duct, nicely seen on image 3 of series 4 suggestive of choledocholithiasis. Contrast extends from the common bile duct into the duodenum. ABD US 2023: . No gallstones are identified and there is no sonographic evidence of acute cholecystitis. Nonspecific dilatation of the common bile duct is similar to previous. This measures up to 10 mm and is of indeterminate significance.Hepatic steatosis. Tbili 1 AST 157 ALT 66 ALKP 112 Lipase 79 Allergies Allergy/AdvReac Type Severity Reaction Status Date / Time shrimp Allergy Severe Hives Verified 10/21/23 07:20 adhesive Allergy Intermediate Eye Verified 10/21/23 07:20 swelling (from tape over eyes) aspirin Allergy Mild "Makes Verified 10/21/23 07:20 shake", pain venison Allergy Mild Hives Verified 10/21/23 07:20 prednisone AdvReac Mild Abdominal Verified 10/21/23 07:20 Pain celecoxib [From Celebrex] AdvReac Unknown Unknown Verified 10/21/23 07:20 Home Medications Medication Instructions Recorded Confirmed Type cetirizine 10 mg tablet (Zyrtec) 10 mg PO QPM 09/26/18 10/21/23 History cyanocobalamin (vitamin B-12) 1,000 mcg PO QAM 09/26/18 10/21/23 History 1,000 mcg tablet (Vitamin B-12) naphazoline 0.025 %-pheniramine 1 drp ophthalmic (eye) UD PRN Other 07/31/19 10/21/23 History 0.3 % eye drops (Naphcon-A) cholecalciferol (vitamin D3) 25 1,000 unit PO QAM 04/18/20 10/21/23 History mcg (1,000 unit) capsule (Vitamin D3) metronidazole 0.75 % topical gel 1 applic topical QAM 11/19/21 10/21/23 History albuterol sulfate 90 mcg/actuation 2 puff inhalation Q6H PRN 11/26/21 10/21/23 Rx aerosol inhaler shortness of breath or wheezing #8.5 grams fluticasone propionate 50 1 spray intranasal BID 04/29/22 10/21/23 History mcg/actuation nasal spray,suspension (Flonase Allergy Relief) baclofen 10 mg tablet 10 mg PO Q8H PRN pain/spasm #60 04/03/23 10/21/23 Rx tabs montelukast 10 mg tablet 10 mg PO QAM 05/14/23 10/21/23 History (Singulair) pantoprazole 40 mg tablet,delayed 40 mg PO DAILY #90 tabs 05/19/23 10/21/23 Rx release (Protonix) levothyroxine 88 mcg tablet 88 mcg PO QAM #90 tabs 10/05/23 10/21/23 Rx acetaminophen 300 mg-codeine 30 mg 1 tab PO Q8H PRN pain #6 tabs 10/15/23 10/21/23 Rx tablet citalopram 20 mg tablet (Celexa) 20 mg PO HS 10/20/23 10/21/23 History fenofibrate nanocrystallized 48 mg 48 mg PO QAM 10/20/23 10/21/23 History tablet (Tricor) fluticasone furoate 100 1 inh inhalation QAM 10/20/23 10/21/23 History mcg-vilanterol 25 mcg/dose inhalation powder (Breo Ellipta) rosuvastatin 20 mg tablet 20 mg PO HS 10/20/23 10/21/23 History oxycodone 5 mg tablet 5 - 10 mg (1 - 2 x 5 mg) PO 10/21/23 Rx .[id number] PRN pain #15 tabs Patient History Medical History Cholelithiasis Hx of gastric ulcer Osteoarthritis Essential tremor Impaired fasting glucose Chronic low back pain Vitamin D deficiency Tubular adenoma of colon Seborrheic keratosis Rosacea Malignant melanoma of skin Left upper shoulder > removed Hypertension Diverticulosis of colon Chronic reflux esophagitis Actinic keratosis Cervical facet syndrome Cervicalgia Allergic rhinitis Depression Hypothyroidism Hyperlipidemia Asthma "Well controlled" per patient Surgical History (Updated 10/21/23 @ 12:23 by Kait Mcconnell, RONEL) History of liver biopsy (10/21/23) Laparoscopic Cholecystectomy with Intraoperative Cholangiogram Truecut Liver Biopsy Right Lobe of Liver - Francisco Javier Lorenzo MD, FACS Hx laparoscopic cholecystectomy (10/21/23) Laparoscopic Cholecystectomy with Intraoperative Cholangiogram Truecut Liver Biopsy Right Lobe of Liver - Francisco Javier Lorenzo MD, FACS History of cervical discectomy 05/19/22 @ [facility]--normal ROM History of carpal tunnel release of both wrists S/P medial meniscal repair R knee History of tonsillectomy H/O breast surgery Right duct repair Denies limb restriction History of lymph node dissection of left axilla History of esophagogastroduodenoscopy (EGD) Hx of colonoscopy History of colectomy Sigmoid (for diverticulitis) History of hysterectomy History of hernia repair x3 H/O cataract extraction Bilateral Family History Father Heart disease Mother Cerebral aneurysm Stroke syndrome Asthma Aunt Ovarian cancer Other No family history of adverse response to anesthesia Denies family history of Prostate cancer Coronary heart disease Breast cancer Lung disease Social History Smoking Status: Never smoker Second Hand Exposure: No; Do You Dip or Chew Tobacco: No; Tobacco Cessation Education Requested by Patient: No Hx Alcohol Use: No Hx Substance Use: No Preferred Language: Turkish Communication Ability: Effective Visual Impairment: No Limitations Equity Sales Assistant Required: No Beliefs That Will Affect Care: None marital status: Current Living Situation: Spouse and Family Current Living Situation Comment: Lives with , son, daughter in law, 2 grandkids current occupational status: retired How many Children do You have: 2 Other Information That Helps Us Care for You: No Feels Safe at Home: Yes Safety Concerns: Feels Safe At This Time Diet: regular caffeine: Yes Physical Activity Frequency: Daily Physical Activity Frequency Comment: Active deep breathing, walking, stretching Seatbelt Use: always Sunscreen Use: Yes (Protective clothing/covering ) Assistive Devices: Glasses Review of Systems Review of Systems: All systems reviewed & are unremarkable except as noted in HPI & below Physical Exam Constitutional: WD/WN, vitals as above Respiratory: normal respiratory effort Cardiovascular: Rate/Rhythm: regular rate Gastrointestinal (Abdomen): Percussion/Palpation: abdomen soft; abdomen nontender Skin: no rashes, warm and dry Results & Data Vital Signs (Past 12 Hours) Vital Signs Temp Pulse Pulse Resp BP Pulse Ox O2 Del Method 10/21/23 11:05 77 21 145/58 H 94 Room Air 10/21/23 10:55 68 17 143/60 H 98 Oxymask 10/21/23 10:45 73 18 157/65 H 97 Oxymask 10/21/23 10:35 36.2 C L 75 18 131/53 L 95 Oxymask 10/21/23 07:26 36.5 C 70 16 164/95 H 96 Room Air O2 Flow Rate 10/21/23 11:05 10/21/23 10:55 6 10/21/23 10:45 10 10/21/23 10:35 10 10/21/23 07:26
--- NOTE | 2023-10-21 11:26 | Anesthesiology Progress Note ---
Date of Service October 21, 2023 Anesthesia Post Procedure Vital Signs Vital Signs: Temp Pulse Pulse Resp BP Pulse Ox O2 Del Method 10/21/23 11:15 36.7 C 79 17 139/64 95 Nasal Cannula 10/21/23 11:05 77 21 145/58 H 94 Room Air 10/21/23 10:55 68 17 143/60 H 98 Oxymask 10/21/23 10:45 73 18 157/65 H 97 Oxymask 10/21/23 10:35 36.2 C L 75 18 131/53 L 95 Oxymask 10/21/23 07:26 36.5 C 70 16 164/95 H 96 Room Air O2 Flow Rate 10/21/23 11:15 2 10/21/23 11:05 10/21/23 10:55 6 10/21/23 10:45 10 10/21/23 10:35 10 10/21/23 07:26 Pain Intensity Right Upper Abdomen: Pain Intensity: 4 Right Abdomen: Pain Intensity: 2 Transfer of Care Handoff Completed per policy Notes Mental Status: alert / awake / arousable Patient Amnestic to Procedure: Yes Nausea / Vomiting: adequately controlled Pain: adequately controlled Airway Patency, RR, SpO2: stable & adequate BP & HR: stable & adequate Hydration State: stable & adequate Anesthetic Complications: no major complications apparent
[2023-10-21] MEDS ORDERED: ALBUTEROL HFA 8 GM INHALER INH PRN (12:11)
[2023-10-21] MEDS: PANTOprazole 40 MG in SYRINGE 0 ML IV SCH (12:38)
[2023-10-21] MEDS: LACTATED RINGER'S 1,000 ML IV SCH (13:21)
[2023-10-21] MEDS: MoRPHine SULFATE 2 MG/ML CARP IV PRN (14:03)
[2023-10-21] MEDS: MoRPHine SULFATE 4 MG/ML 1 ML CARP\\VIAL ONE (14:04)
[2023-10-21] MEDS: SODIUM CHLORIDE 0.9% 1,000 ML IV SCH (15:32)
[2023-10-21] MEDS: cefOXitin 2,000 MG in DEXTROSE 5 % MINI-B 50 ML IV SCH (16:34)
[2023-10-21] MEDS: BACLOFEN 10 MG TAB PO PRN (16:47)
[2023-10-21] MEDS: COUGH DROP (SUGAR FREE) LOZ 24 LOZ/1 BOX BUCCAL ONE (20:22)
[2023-10-21] MEDS: oxyCODONE HCL IR 5 MG TAB (IMMEDIATE RELEASE) PO PRN (21:44)
[2023-10-21] MEDS: FLUTICASONE PROPIONATE NA SPR 16 GM BTL SCH (21:45)
[2023-10-21] MEDS: CITALOPRAM 20 MG TAB PO SCH (22:21)
[2023-10-21] MEDS: CETIRIZINE HCL 10 MG TABLET PO SCH (22:22)
[2023-10-22] MEDS: ACETAMINOPHEN 325 MG TAB PO PRN (00:09)
--- NOTE | 2023-10-22 06:25 | Surgery Progress Note ---
Date of Service October 22, 2023 Assessment & Plan (1) History of cholecystectomy: Plan: Patient is postoperative day 1 status post laparoscopic cholecystectomy intraoperative cholangiogram that showed stone in the distal common bile duct ball valving effect Intraoperative findings were discussed with the patient including the need for an ERCP today we had discussed that preoperatively Patient denies any history of alcohol use or history of known hepatitis Labs from this morning pending Plan Proceed with ERCP today pending the outcome she may be able to go home today but most likely tomorrow We will leave the Vijay drain in for now Admission and Anticipated Discharge Date Admission Date: October 21, 2023 Subjective No complaints minimal abdominal pain Physical Exam Physical Exam: Alert coherent resting comfortably without any issue Sclera nonicteric Abdomen benign trocar sites free of any ecchymosis or bleeding Vijay drainage serous slightly sanguinous nonbilious in nature Results & Data Vital Signs (Past 12 Hours) Vital Signs Temp Pulse Resp BP BP Pulse Ox O2 Del Method 10/22/23 03:53 36.7 C 63 18 129/65 92 Room Air 10/22/23 00:47 68 152/67 H 10/22/23 00:12 36.6 C 69 18 180/80 H 93 Room Air 10/21/23 20:15 36.7 C 66 18 145/70 H 93 Room Air
[2023-10-22] MEDS: LEVOTHYROXINE SODIUM 88 MCG TABLET PO SCH (06:32)
[2023-10-22] MEDS: FLUTICASONE/VILANTEROL 100/25MCG 14 PUFFS/INHALER INH SCH (07:45)
[2023-10-22] MEDS: MONTELUKAST SODIUM 10 MG TABLET PO SCH (07:47)
[2023-10-22 08:03] LABS: Basophils # (auto) 0.01 K/uL (0.00-0.20); Basophils % (auto) 0.1 %; Hematocrit (blood only) 38.9 % (37.0-47.0); Hemoglobin 13.1 g/dl (12.0-16.0); Immature Granulocytes % (auto) 0.8 %; Lymphocytes # (auto) 1.82 K/uL (1.20-3.40); Lymphocytes % (auto) 14.8 %; Mean Corpuscular Hemoglobin 31.3 pg (25.0-34.0); Mean Corpuscular Hgb Conc 33.7 g/dL (32.0-36.0); Mean Corpuscular Volume 92.8 fL (80.0-100.0); Mean Platelet Volume 8.6 fL (9.4-12.4); Monocytes # (auto) 1.17 K/uL (0.11-0.59); Monocytes % (auto) 9.5 %; Neutrophils # (auto) 9.16 K/uL (1.40-6.50); Neutrophils % (auto) 74.8 %; Platelet Count 319 K/uL (130-400); RDW Coefficient of Variation 13.3 % (11.5-14.5); RDW Standard Deviation 45.7 fL (36.4-46.3); Red Blood Count 4.19 M/uL (4.20-5.40); White Blood Count 12.26 K/ul (4.8-10.8)
[2023-10-22 08:29] LABS: Albumin Globulin Ratio 1.6 (0.9-2); Albumin Level 4.1 gm/dl (3.4-5.0); BUN Creatinine Ratio 17.6 (10-20); Bilirubin,Total 0.6 mg/dl (0.2-1.0); Calcium 9.4 mg/dl (8.6-10.3); Creatinine Clr Calc Pharmacy 57.5 ml/min; Est GFR (African American) 88.7 ml/min; Est GFR (Non-African American) 76.5 ml/min; Globulin 2.6 gm/dl (2.5-4.0); Potassium 4.5 mmol/L (3.5-5.1); Total Protein 6.7 gm/dl (6.0-8.3)
--- NOTE | 2023-10-22 10:02 | Communication Note ---
Date of Service: October 22, 2023 Pt was seen and evaluated, chart reviewed. Remains NPO for ERCP today, timing to be determined. All questions answered. Discussed risks, benefits, alternatives. Agreeable to maintaining NPO for ERCP today. We appreciate assistance in the management of any serological abnormality and corrections to include: hemoglobin >7, INR <2, platelets >50,000, potassium levels >3.5 but <5.3, and sodium levels within 5 points of the reference range prior to endoscopic evaluation. Thank you for allowing us to participate in the care of this patient. Please call with any acute changes, questions or concerns. Please see addendum below with additional recommendation from my supervising physician.
--- NOTE | 2023-10-22 13:50 | History & Physical Bridge Note ---
Date of Service October 22, 2023 History & Physical Bridge Note I have examined the patient, reviewed the History & Physical and in the interval since the performance of the History & Physical I have noted the following changes of clinical significance: no changes noted. I evaluated the patient for a common bile duct stone seen on recent intraoperative cholangiogram with Dr. Wahl during cholecystectomy. The patient is to have ERCP today for gallstone extraction. We have discussed the risks and benefits of ERCP to include bleeding, infection, perforation, pain, pancreatitis, and inability to cannulate the biliary tree.
[2023-10-22] MEDS ORDERED: ONDANSETRON INJ 2 MG/ML 2 ML VIAL IV PRN (13:53)
[2023-10-22] MEDS ORDERED: ATROPINE SULFATE 0.1 MG/ML 10ML SYR IV PRN (13:53)
[2023-10-22] MEDS ORDERED: fentaNYL citrate PF 100 MCG/2 ML VIAL IV PRN (13:53)
[2023-10-22] MEDS ORDERED: ePHEDrine sulfate 50 MG/ML AMP IV PRN (13:53)
--- NOTE | 2023-10-22 13:53 | Anesthesiology Consultation ---
Date of Service October 22, 2023 Assessment & Plan Chart Review Chart Review: Acceptable Risk for Surgery and Patient NOT seen in Pre Admission Testing Consults Requested none ASA ASA2 Proposed Anesthesia Anesthesia Type: MAC Risk / Benefits Reviewed With: PT / POA / Parent / Guardian, Accepts Plan and Informed Consent Obtained History Surgery Operation Date: 10/21/23 08:50 Proposed Procedures p Laparoscopic Cholecystectomy Intraoperative Cholangiogram, Possible Open - Francisco Javier Lorenzo MD, FACS Operation Date: 10/22/23 07:00 Proposed Procedures p Endoscopic Retrograde Cholangiopancreato - Marj Qiu, Height/Weight Height: 5 ft 2.5 in Weight: 73.4 kg Allergies Allergy/AdvReac Type Severity Reaction Status Date / Time shrimp Allergy Severe Hives Verified 10/21/23 07:20 adhesive Allergy Intermediate Eye Verified 10/21/23 07:20 swelling (from tape over eyes) aspirin Allergy Mild "Makes Verified 10/21/23 07:20 shake", pain venison Allergy Mild Hives Verified 10/21/23 07:20 prednisone AdvReac Mild Abdominal Verified 10/21/23 07:20 Pain celecoxib [From Celebrex] AdvReac Unknown Unknown Verified 10/21/23 07:20 Medications Home Medications Medication Instructions Recorded Confirmed Last Taken cetirizine 10 mg tablet (Zyrtec) 10 mg PO QPM 09/26/18 10/21/23 10/20/23 19:00 cyanocobalamin (vitamin B-12) 1,000 mcg PO QAM 09/26/18 10/21/23 10/20/23 08:00 1,000 mcg tablet (Vitamin B-12) naphazoline 0.025 %-pheniramine 1 drp ophthalmic (eye) UD PRN Other 07/31/19 10/21/23 10/19/23 08:00 0.3 % eye drops (Naphcon-A) cholecalciferol (vitamin D3) 25 1,000 unit PO QAM 04/18/20 10/21/23 10/20/23 08:00 mcg (1,000 unit) capsule (Vitamin D3) metronidazole 0.75 % topical gel 1 applic topical QAM 11/19/21 10/21/23 10/20/23 08:00 albuterol sulfate 90 mcg/actuation 2 puff inhalation Q6H PRN 11/26/21 10/21/23 09/20/23 aerosol inhaler shortness of breath or wheezing #8.5 grams fluticasone propionate 50 1 spray intranasal BID 04/29/22 10/21/23 10/19/23 08:00 mcg/actuation nasal spray,suspension (Flonase Allergy Relief) baclofen 10 mg tablet 10 mg PO Q8H PRN pain/spasm #60 04/03/23 10/21/23 09/20/23 tabs montelukast 10 mg tablet 10 mg PO QAM 05/14/23 10/21/23 10/21/23 06:00 (Singulair) pantoprazole 40 mg tablet,delayed 40 mg PO DAILY #90 tabs 05/19/23 10/21/23 10/20/23 19:00 release (Protonix) levothyroxine 88 mcg tablet 88 mcg PO QAM #90 tabs 10/05/23 10/21/23 10/20/23 06:00 acetaminophen 300 mg-codeine 30 mg 1 tab PO Q8H PRN pain #6 tabs 10/15/23 10/21/23 Unknown tablet citalopram 20 mg tablet (Celexa) 20 mg PO HS 10/20/23 10/21/23 10/20/23 19:00 fenofibrate nanocrystallized 48 mg 48 mg PO QAM 10/20/23 10/21/23 10/20/23 08:00 tablet (Tricor) fluticasone furoate 100 1 inh inhalation QAM 10/20/23 10/21/23 10/21/23 05:50 mcg-vilanterol 25 mcg/dose inhalation powder (Breo Ellipta) rosuvastatin 20 mg tablet 20 mg PO HS 10/20/23 10/21/23 10/20/23 19:00 oxycodone 5 mg tablet 5 - 10 mg (1 - 2 x 5 mg) PO 10/21/23 Unknown .[id number] PRN pain #15 tabs Active Medications Generic Name Dose Route Start Last Admin Trade Name Freq PRN Reason Stop Dose Admin Acetaminophen 650 mg 10/21/23 09:57 10/22/23 10:14 Acetaminophen 325 Mg Tab PO 11/20/23 09:56 650 mg Q6H PRN Administration Mild Pain (Scale 1, 2, 3) Baclofen 10 mg 10/21/23 12:11 10/21/23 16:47 Baclofen 10 Mg Tab PO 11/20/23 12:10 10 mg Q8H PRN Administration pain/spasm Cetirizine HCl 10 mg 10/21/23 21:00 10/21/23 22:22 Cetirizine Hcl 10 Mg Tablet PO 11/20/23 20:59 10 mg QPM RAUL Administration Citalopram Hydrobromide 20 mg 10/21/23 21:00 10/21/23 22:21 Citalopram 20 Mg Tab PO 11/20/23 20:59 20 mg HS RAUL Administration Fluticasone Propionate 1 sprays 10/21/23 21:00 10/22/23 07:44 Fluticasone Propionate Na Spr 16 Gm Btl NA 11/20/23 20:59 1 sprays BID RAUL Administration Fluticasone/Vilanterol 1 puffs 10/22/23 09:00 10/22/23 07:45 Fluticasone/Vilanterol 100/25mcg 14 Puffs/Inhaler INH 11/21/23 08:59 1 puffs QAM RAUL Administration Lactated Ringer's 1,000 mls @ 80 mls/hr 10/21/23 10:30 10/22/23 13:26 Lr IV 11/20/23 10:29 Not Given .[id number] RAUL Cefoxitin Sodium 2,000 mg/ 50 mls @ 100 mls/hr 10/21/23 16:00 10/22/23 10:00 Dextrose IV 10/31/23 15:59 Infused Q6H RAUL Infusion Protocol Pantoprazole Sodium 40 mg/ 10 mls @ 5 mls/min 10/21/23 12:30 10/22/23 10:32 Syringe IV 11/20/23 12:29 5 mls/min DAILY@1100 RAUL Administration Levothyroxine Sodium 88 mcg 10/22/23 06:30 10/22/23 06:32 Levothyroxine Sodium 88 Mcg Tablet PO 11/21/23 06:29 88 mcg DAILYBB ARUL Administration Montelukast Sodium 10 mg 10/22/23 09:00 10/22/23 07:47 Montelukast Sodium 10 Mg Tablet PO 11/21/23 08:59 10 mg QAM RAUL Administration Morphine Sulfate 2 mg 10/21/23 09:57 10/21/23 14:03 Morphine Sulfate 2 Mg/Ml Carp IV 11/04/23 09:56 2 mg Q3H PRN Administration Pain (1,2,3,4,5) & Pre PT Oxycodone HCl 10 mg 10/21/23 09:57 10/21/23 21:44 Oxycodone Hcl Ir 5 Mg Tab (Immediate Release) PO 11/04/23 09:56 10 mg Q4H PRN Administration SEVERE Pain (7,8,9,10) NPO Date Last Intake of Fluids: 10/21/23 Time Last Intake of Fluids: 23:55 Date Last Intake of Solids: 10/21/23 Time Last Intake of Solids: 23:55 Past Medical History Medical History Cholelithiasis Hx of gastric ulcer Osteoarthritis Essential tremor Impaired fasting glucose Chronic low back pain Vitamin D deficiency Tubular adenoma of colon Seborrheic keratosis Rosacea Malignant melanoma of skin Left upper shoulder > removed Hypertension Diverticulosis of colon Chronic reflux esophagitis Actinic keratosis Cervical facet syndrome Cervicalgia Allergic rhinitis Depression Hypothyroidism Hyperlipidemia Asthma "Well controlled" per patient Exercise / Class Metabolic Activity II 4-5 Yardwork/Stairs/Walk up hill Past Family History Family History Father Heart disease Mother Cerebral aneurysm Stroke syndrome Asthma Aunt Ovarian cancer Other No family history of adverse response to anesthesia Denies family history of Prostate cancer Coronary heart disease Breast cancer Lung disease Past Surgical History Surgical History (Updated 10/21/23 @ 12:23 by Kait Mcconnell, RONEL) History of liver biopsy (10/21/23) Laparoscopic Cholecystectomy with Intraoperative Cholangiogram [place] Liver Biopsy Right Lobe of Liver - Francisco Javier Lorenzo MD, FACS Hx laparoscopic cholecystectomy (10/21/23) Laparoscopic Cholecystectomy with Intraoperative Cholangiogram [place] Liver Biopsy Right Lobe of Liver - Francisco Javier Lorenzo MD, FACS History of cervical discectomy 05/19/22 @ [facility]--normal ROM History of carpal tunnel release of both wrists S/P medial meniscal repair R knee History of tonsillectomy H/O breast surgery Right duct repair Denies limb restriction History of lymph node dissection of left axilla History of esophagogastroduodenoscopy (EGD) Hx of colonoscopy History of colectomy Sigmoid (for diverticulitis) History of hysterectomy History of hernia repair x3 H/O cataract extraction Bilateral Past Anesthesia History No Hx of Anesthesia Complications and No Family Hx of Anesthesia Complications History of PONV No Hx of PONV and No Hx of Motion Sickness Social History Smoking Status: Never smoker Do You Dip or Chew Tobacco: No Hx Alcohol Use: No Hx Substance Use: No substance use type: does not use Physical Exam Vital Signs Last Vital Signs Temp 36.8 C 10/22/23 13:20 Pulse 66 10/22/23 13:20 Resp 18 10/22/23 13:20 BP 150/77 H 10/22/23 13:20 Pulse Ox 94 10/22/23 13:20 O2 Del Method Room Air 10/22/23 13:20 O2 Flow Rate 1 10/21/23 14:55 ENMT Mouth: no dentition abnormality Thyromental Distance: > or= 3.5 Finger Breadths Mallampati Class: II Neck normal visual inspection Respiratory normal respiratory effort Auscultation: lungs clear to auscultation bilaterally Cardiovascular Rate/Rhythm: regular rate and regular rhythm Psychiatric Orientation: alert Testing Laboratory Results 10/22/23 07:36 10/22/23 07:36 Electrocardiogram Date: 10/15/23 SR with occasional PVCs at 73bpm. Cannot r/o anterior infarct, age undetermined. NS TWA. Compared to 05/14/2023 ECG, PVCs now present per fur storage clerk comparison. Chest X-Ray Date: 10/15/23 FINDINGS: A PA chest radiograph is compared to study dated 05/14/2023. The heart is mildly enlarged and noting atherosclerotic calcification of the thoracic aorta. The pulmonary vasculature is noncongested. The lungs and pleural spaces are clear. No pneumothorax is seen. The skeletal structures are osteopenic. The bony thorax is grossly intact. Fusion hardware is noted in the lower cervical spine. IMPRESSION: Mild cardiomegaly with no active disease in the chest. Stress Test Date: 05/28/23 Type: DSE Negative DSE/stress ECG for ischemia at 90% MPHR. Normal restive LV size. Borderline cLVH. LVEF 60-65%. Questionable mitral valve DAKSHA with no LVOT obsrtuction. Possible interatrial left to right shunt by doppler. Normal est rest PA and RA pressures. *DSE reviewed at follow-up cardiology visit 07/2023* Other Testing Abdomen ultrasound Date: 10/07/23 1. Cholelithiasis. No gallbladder wall thickening. 2. Distended common bile which measures up to 1 cm. This raises the possibility of nonvisualized choledocholithiasis or an occult obstructing lesion. ERCP recommended for further evaluation. Gallbladder ultrasound Date: 10/15/23 IMPRESSION: 1. No gallstones are identified and there is no sonographic evidence of acute cholecystitis. 2. Nonspecific dilatation of the common bile duct is similar to previous. This measures up to 10 mm and is of indeterminate significance. 3. Hepatic steatosis.
[2023-10-22] MEDS ORDERED: PROPOFOL IV EMULSION 10 MG/ML 20 ML VIAL IV ONE (13:55)
[2023-10-22] MEDS ORDERED: fentaNYL citrate PF 100 MCG/2 ML VIAL ONE (13:55)
[2023-10-22] MEDS: INDOMETHACIN 50 MG SUPP PR ONE (14:19)
--- NOTE | 2023-10-22 14:34 | GI REPORT ---
Patient Name: Tisha Gilbert Procedure Date: 10/22/2023 1:07 PM Date of : 1945 Admit Type: Inpatient Age: 78 Gender: Female Attending MD: Marj Qiu DO, Procedure: ERCP Providers: Marj Qiu DO Referring MD: Francisco Javier Lorenzo Indications: Abdominal pain of suspected biliary origin, Filling defect on intraoperative cholangiogram Medicines: Monitored Anesthesia Care Complications: No immediate complications. Estimated blood loss: Minimal. Estimated Blood Loss: Estimated blood loss was minimal. Procedure: Pre-Anesthesia Assessment: - Prior to the procedure, a History and Physical was performed, and patient medications, allergies and sensitivities were reviewed. The patient's tolerance of previous anesthesia was reviewed. - The risks and benefits of the procedure and the sedation options and risks were discussed with the patient. All questions were answered and informed consent was obtained. - Patient identification and proposed procedure were verified prior to the procedure by the physician, the nurse and the rn intern. The procedure was verified in the procedure room. - Pre-procedure physical examination revealed no contraindications to sedation. - ASA Grade Assessment: II - A patient with mild systemic disease. - After reviewing the risks and benefits, the patient was deemed in satisfactory condition to undergo the procedure. - The anesthesia plan was to use monitored anesthesia care (MAC). - Immediately prior to administration of medications, the patient was re-assessed for adequacy to receive sedatives. - The heart rate, respiratory rate, oxygen saturations, blood pressure, adequacy of pulmonary ventilation, and response to care were monitored throughout the procedure. - The physical status of the patient was re-assessed after the procedure. After obtaining informed consent, the scope was passed under direct vision. Throughout the procedure, the patient's blood pressure, pulse, and oxygen saturations were monitored continuously. The Duodenoscope was introduced through the mouth, and advanced to the duodenum and used to inject contrast into the bile duct. The ERCP was accomplished without difficulty. The patient tolerated the procedure well. Findings: A digital service engineer film of the abdomen was obtained. Percutaneous drain(s) and surgical clips consistent with a previous cholecystectomy were seen. The esophagus was successfully intubated under direct vision without detailed examination of the pharynx, larynx, and associated structures, and upper GI tract. The upper GI tract was grossly normal. The major papilla was normal. The bile duct was deeply cannulated with the short-nosed traction sphincterotome and guidewire (PD not injected or cannulated today). Contrast was injected. I personally interpreted the bile duct images. Contrast extended to the entire biliary tree. A cholecystectomy had been performed. The main bile duct was moderately dilated. The largest diameter was 10 mm. The lower third of the main bile duct contained filling defect(s) thought to be a stone and sludge. Biliary sphincterotomy was made with a monofilament Fusion OMNI sphincterotome using ERBE electrocautery. The sphincterotomy oozed blood. To discover objects, the biliary tree was swept with a 15 mm balloon starting at the bifurcation. Sludge was swept from the duct. A few stones were removed. No stones remained. One 10 Fr by 9 cm biliary stent with a single external flap and a single internal flap was placed 8.5 cm into the common bile duct. Bile flowed through the stent. The stent was in good position. The endoscope was withdrawn from the patient. Indomethacin 100 mg was given via suppository to decrease the risk of post-ERCP pancreatitis (PEP). Impression: - The major papilla appeared normal. - The patient has had a cholecystectomy. - Choledocholithiasis was found. Complete removal was accomplished by biliary sphincterotomy and balloon extraction. - One biliary stent was placed into the common bile duct. - Indomethacin given to decrease risk of post-ERCP pancreatitis. Recommendation: - Avoid aspirin and nonsteroidal anti-inflammatory medicines for 1 week. - Clear liquid diet today. - Use broad spectrum antibiotics for 10 days. - Repeat ERCP in 6 weeks to remove stent. Marj Qiu D.O. Marj Qiu, 10/22/2023 2:33:27 PM This report has been signed electronically. Note Initiated On: 10/22/2023 1:07 PM Number of Addenda: 0 I attest to the content of the Intraoperative Record and orders documented therein, exceptions below {[id number]}
--- NOTE | 2023-10-22 14:35 | Post Operative Brief Note ---
Immediate Post Op Note v1 Date of Surgery October 22, 2023 Pre & Post Diagnosis Operation Date: 10/22/23 07:00 Pre-Op Diagnosis: Cholelithiasis I identified the patient and participated in the time-out.: Yes Procedure Operation Date: 10/22/23 07:00 ERCP with gallstone extraction and biliary stent placement. Surgeon Marj Qiu DO [place] [employer] Samson FINNEGAN Estimated Blood Loss 10 Findings Consistent with Post-Op Diagnosis Drains Nirav-Chi Drain
--- NOTE | 2023-10-22 14:37 | Communication Note ---
Date of Service: October 22, 2023 Patient underwent ERCP with positive intraoperative cholangiogram. Patient was found to have stones and sludge material within the common bile duct, this was removed after biliary sphincterotomy had been performed. A biliary stent was placed biliary tree. We will plan for a repeat ERCP in 6 to 8 weeks for stent removal. REcomendations: Clear liquid diet today from a GI perspective continue antibiotic coverage for a total of 10 days Avoid NSAIDS for 1 week Repeat ERCP in 6 o 8 weeks for stent removal
--- NOTE | 2023-10-22 14:48 | Fluoroscopy Report ---
[place] ERCP biliary ductal CLINICAL HISTORY: ADD ON ERCP IN ORacute right upper quadrant abdominal pain COMPARISON STUDY: 10/21/2023 FLUOROSCOPY TIME: 30.1 seconds FLUOROSCOPY IMAGES: 9 EXPOSURE DOSE: 5.87 mGy FINDINGS: Endoscope within the duodenum. Retrograde cannulation of the common bile duct with injectio n of contrast and subsequent balloon sweep. Cholecystectomy with cystic duct remnant. Subsequent imag es demonstrate placement of a common bile duct stent which appears to be in satisfactory positioning. Previously noted choledocholithiasis is not definitively seen. There is however apparent narrowing o f the distal common bile duct. IMPRESSION: Fluoroscopic assistance as above. ACT 112: Negative or not required by law. Electronically signed by: Kun Montanez M.D. 10/22/2023 2:47 PM
--- NOTE | 2023-10-22 15:56 | Anesthesiology Progress Note ---
Date of Service October 22, 2023 Anesthesia Post Procedure Vital Signs Vital Signs: Temp Pulse Pulse Pulse Resp BP BP 10/22/23 15:12 36.5 C 65 16 160/71 H 10/22/23 14:45 36.8 C 72 18 131/70 10/22/23 14:35 67 16 145/67 H 10/22/23 14:27 36.8 C 74 16 147/76 H 10/22/23 13:20 36.8 C 66 18 150/77 H 10/22/23 11:07 36.9 C 65 16 125/60 10/22/23 07:44 36.7 C 63 16 142/79 H 10/22/23 03:53 36.7 C 63 18 129/65 10/22/23 00:47 68 152/67 H 10/22/23 00:12 36.6 C 69 18 180/80 H 10/21/23 20:15 36.7 C 66 18 145/70 H Pulse Ox O2 Del Method O2 Flow Rate 10/22/23 15:12 94 Room Air 10/22/23 14:45 96 Room Air 10/22/23 14:35 98 Oxymask 5 10/22/23 14:27 97 Oxymask 5 10/22/23 13:20 94 Room Air 10/22/23 11:07 96 Room Air 10/22/23 07:44 96 Room Air 10/22/23 03:53 92 Room Air 10/22/23 00:47 10/22/23 00:12 93 Room Air 10/21/23 20:15 93 Room Air Pain Intensity Right Upper Abdomen: Pain Intensity: 4 Right Abdomen: Pain Intensity: 3 Transfer of Care Handoff Completed per policy Notes Mental Status: alert / awake / arousable Patient Amnestic to Procedure: Yes Nausea / Vomiting: adequately controlled Pain: adequately controlled Airway Patency, RR, SpO2: stable & adequate BP & HR: stable & adequate Hydration State: stable & adequate Anesthetic Complications: no major complications apparent
[2023-10-23 07:34] LABS: Basophils # (auto) 0.01 K/uL (0.00-0.20); Basophils % (auto) 0.1 %; Hematocrit (blood only) 40.1 % (37.0-47.0); Hemoglobin 13.8 g/dl (12.0-16.0); Immature Granulocytes # (auto) 0.08 K/uL (0.01-0.20); Immature Granulocytes % (auto) 0.8 %; Lymphocytes # (auto) 1.54 K/uL (1.20-3.40); Lymphocytes % (auto) 14.5 %; Mean Corpuscular Hemoglobin 31.4 pg (25.0-34.0); Mean Corpuscular Hgb Conc 34.4 g/dL (32.0-36.0); Mean Corpuscular Volume 91.3 fL (80.0-100.0); Mean Platelet Volume 8.5 fL (9.4-12.4); Monocytes # (auto) 0.85 K/uL (0.11-0.59); Neutrophils # (auto) 8.11 K/uL (1.40-6.50); Neutrophils % (auto) 76.6 %; Platelet Count 314 K/uL (130-400); RDW Coefficient of Variation 13.2 % (11.5-14.5); RDW Standard Deviation 44.8 fL (36.4-46.3); Red Blood Count 4.39 M/uL (4.20-5.40); White Blood Count 10.59 K/ul (4.8-10.8)
[2023-10-23 07:50] LABS: Albumin Globulin Ratio 1.6 (0.9-2); Albumin Level 4.2 gm/dl (3.4-5.0); BUN Creatinine Ratio 20.5 (10-20); Bilirubin,Total 0.6 mg/dl (0.2-1.0); Calcium 9.3 mg/dl (8.6-10.3); Creatinine Clr Calc Pharmacy 58.3 ml/min; Est GFR (African American) 90.2 ml/min; Est GFR (Non-African American) 77.8 ml/min; Globulin 2.6 gm/dl (2.5-4.0); Potassium 4.2 mmol/L (3.5-5.1); Total Protein 6.8 gm/dl (6.0-8.3)
--- NOTE | 2023-10-23 09:00 | Gastroenterology Progress Note ---
Date of Service October 23, 2023 Assessment & Plan (1) History of cholecystectomy: Plan: 78 year old female POD #3 CCY for gallstones s/p ERCP for retained biliary stones removed s/p biliary sphincterotomy and stent placement, clinically improving with downtrending LFTs Ok for diet No GI contraindication to discharge Continue antibiotic coverage for a total of 10 days Avoid NSAIDS for 1 week Repeat ERCP in 6 o 8 weeks for stent removal OP hepatology follow up pending [facility] Thank you for allowing us to participate in the care of this patient. Please call with any acute changes, questions or concerns. Please see addendum below with additional recommendation from my supervising physician. Admission and Anticipated Discharge Date Admission Date: October 21, 2023 Supervising Physician Co-Signing Physician Notes I personally saw and evaluated the patient on 10/23/2023 with SIVAN Diaz and agree with her findings and plan of care. Abdomen soft and non-tender. 78 y/o F s/p POD 3 with cholecystectomy for cholelithiasis found to have CBD stone on IOC. She is s/p ERCP 10/22 with removal of CBD stones and CBD Stent placement with sphincterotomy. LFTs improving. Ok to discharge from GI standpoint. We will arrange outpatient ERCP in 6-8 weeks for stent removal. Antibiotics for a total of 10 days and avoid all NSAIDs. If liver biopsy confirms cirrhosis or advanced fibrosis recommend outpatient hepatology follow up. Mary Lou Gentile, Gastroenterology and Hepatology Subjective Pt was seen and evaluated, chart reviewed. Has some surgical site soreness but denies any abd pain. Tolerated breakfast this AM. LFTs improving ERCP w/ stones/debris, removed s/p biliary sphincterotomy, biliary stent placement Review of Systems Review of Systems: All systems reviewed & are unremarkable except as noted in HPI & below Physical Exam Constitutional: WD/WN, vitals as above Respiratory: normal respiratory effort, lungs clear to auscultation Cardiovascular: Rate/Rhythm: regular rate Gastrointestinal (Abdomen): normal bowel sounds, soft, nontender, no hepatosplenomegaly Skin: no rashes, warm and dry Results & Data Vital Signs (Past 12 Hours) Vital Signs Temp Pulse Pulse Resp BP Pulse Ox O2 Del Method 10/23/23 07:30 36.5 C 61 18 142/82 H 96 Room Air 10/23/23 05:49 36.5 C 69 16 148/69 H 94 Room Air Laboratory Results 10/23/23 Range/Units 06:55 WBC 10.59 (4.8-10.8) K/ul RBC 4.39 (4.20-5.40) M/uL Hgb 13.8 (12.0-16.0) g/dl Hct 40.1 (37.0-47.0) % MCV 91.3 (80.0-100.0) fL MCH 31.4 (25.0-34.0) pg MCHC 34.4 (32.0-36.0) g/dL RDW Std Deviation 44.8 (36.4-46.3) fL RDW Coeff of Isaias 13.2 (11.5-14.5) % Plt Count 314 (130-400) K/uL MPV 8.5 L (9.4-12.4) fL Immature Gran % (Auto) 0.8 % Neut % (Auto) 76.6 % Lymph % (Auto) 14.5 % Carter % (Auto) 8.0 % Eos % (Auto) 0.0 % Baso % (Auto) 0.1 % Neut # (Auto) 8.11 H (1.40-6.50) K/uL Lymph # (Auto) 1.54 (1.20-3.40) K/uL Carter # (Auto) 0.85 H (0.11-0.59) K/uL Eos # (Auto) 0.00 (0.00-0.50) K/uL Baso # (Auto) 0.01 (0.00-0.20) K/uL Immature Gran # (Auto) 0.08 (0.01-0.20) K/uL Sodium 135 L (136-145) mmol/L Potassium 4.2 (3.5-5.1) mmol/L Chloride 102 (98-107) mmol/L Carbon Dioxide 25 (21-32) mmol/L Anion Gap 8 (3-11) BUN 15 (6-23) mg/dl Creatinine 0.73 (0.6-1.2) mg/dl Est Cr Clr Drug Dosing 58.3 ml/min Est GFR ( Amer) 90.2 ml/min Est GFR (Non-Af Amer) 77.8 ml/min BUN/Creatinine Ratio 20.5 H (10-20) Glucose 123 H (70-99(Fasting)) mg/dl Calcium 9.3 (8.6-10.3) mg/dl Total Bilirubin 0.6 (0.2-1.0) mg/dl AST 37 (13-39) U/L ALT 55 H (7-52) U/L Alkaline Phosphatase 99 (34-104) U/L Total Protein 6.8 (6.0-8.3) gm/dl Albumin 4.2 (3.4-5.0) gm/dl Globulin 2.6 (2.5-4.0) gm/dl Albumin/Globulin Ratio 1.6 (0.9-2)
--- NOTE | 2023-10-23 10:21 | Surgery Progress Note ---
Date of Service October 23, 2023 Assessment & Plan (1) History of cholecystectomy: Plan: POD 2 lap casandra POD 1 ERCP pain controlled CARI drain removed covered with guaze and tegaderm Tolerating diet CBC , CMP wnl VSS Stable for discharge F/u next week in office with Dr. Lorenzo F/u with GI in 6-8 weeks for biliary stent removal. No NSAIDs for 1 week, may take Tylenol 10 days Augmentin sent to pharmacy pt verbalized understanding of taking. (2) Dilated cbd, acquired: Admission and Anticipated Discharge Date Admission Date: October 21, 2023 Subjective pt doing well minimal abd pain controllable tolerating diet Review of Systems Constitutional: no fever and no chills Respiratory: no dyspnea Cardiovascular: no chest pain Gastrointestinal: + abdominal pain; no nausea and no vomit ing Neurologic: no confusion Physical Exam Physical Exam: alert oriented pleasant Constitutional: cooperative and comfortable; no acute distress Respiratory: normal respiratory effort and able to speak in complete sentences; no respiratory distress Cardiovascular: Rate/Rhythm: regular rate Gastrointestinal (Abdomen): Inspection/Auscultation: + abdominal surgical incision (steri strips CDI); abdomen not distended Percussion/Palpation: abdomen soft Results & Data Vital Signs (Past 12 Hours) Vital Signs Temp Pulse Pulse Resp BP Pulse Ox O2 Del Method 10/23/23 07:30 97.7 F 61 18 142/82 H 96 Room Air 10/23/23 05:49 97.7 F 69 16 148/69 H 94 Room Air Results Complete Blood Count Results: RBC 4.39 M/uL (4.20-5.40) 10/23/23 WBC 10.59 K/ul (4.8-10.8) 10/23/23 Hgb 13.8 g/dl (12.0-16.0) 10/23/23 Hct 40.1 % (37.0-47.0) 10/23/23 Plt Count 314 K/uL (130-400) 10/23/23 Results CMP Results: Na 135 mmol/L (136-145) L 10/23/23 K 4.2 mmol/L (3.5-5.1) 10/23/23 Cl 102 mmol/L (98-107) 10/23/23 CO2 25 mmol/L (21-32) 10/23/23 Anion Gap 8 (3-11) 10/23/23 BUN 15 mg/dl (6-23) 10/23/23 Creatinine 0.73 mg/dl (0.6-1.2) 10/23/23 Estimated GFR ( Amer) 90.2 ml/min 10/23/23 Estimated GFR (Non-Af Amer) 77.8 ml/min 10/23/23 BUN/Creatinine Ratio 20.5 (10-20) H 10/23/23 Glu 123 mg/dl (70-99(Fasting)) H 10/23/23 Ca 9.3 mg/dl (8.6-10.3) 10/23/23 Total Bilirubin 0.6 mg/dl (0.2-1.0) 10/23/23 Direct Bilirubin 0.0 mg/dl (0-0.2) 01/07/23 AST 37 U/L (13-39) 10/23/23 ALT 55 U/L (7-52) H 10/23/23 Alkaline Phosphatase 99 U/L (34-104) 10/23/23 TP 6.8 gm/dl (6.0-8.3) 10/23/23 Albumin 4.2 gm/dl (3.4-5.0) 10/23/23 Globulin 2.6 gm/dl (2.5-4.0) 10/23/23 Albumin/Globulin Ratio 1.6 (0.9-2) 10/23/23 PG Care Time/CCT Total # of Minutes Spent Total Time Spent with Patient: Total time spent is greater than 50% in coordination of care (as documented) at patient's floor/unit and/or counseling patient: Coding Level of Care Code 46300 SUB INP/OBS CARE 25MIN Diagnoses History of cholecystectomy Z90.49 Dilated cbd, acquired K83.8
--- NOTE | 2023-10-23 11:14 | Discharge Summary ---
Date of Service October 23, 2023 Principal Diagnosis Cholelithiasis with Choledocholithiasis Discharge Exam alert oriented pleasant Constitutional cooperative and comfortable; no acute distress Respiratory normal respiratory effort and able to speak in complete sentences; no respiratory distress Cardiovascular Rate/Rhythm: regular rate Gastrointestinal (Abdomen) Inspection/Auscultation: + abdominal surgical incision (steri strips CDI); abdomen not distended Percussion/Palpation: abdomen soft Discharge Data Allergies Allergy/AdvReac Type Severity Reaction Status Date / Time shrimp Allergy Severe Hives Verified 10/21/23 07:20 adhesive Allergy Intermediate Eye Verified 10/21/23 07:20 swelling (from tape over eyes) aspirin Allergy Mild "Makes Verified 10/21/23 07:20 shake", pain venison Allergy Mild Hives Verified 10/21/23 07:20 prednisone AdvReac Mild Abdominal Verified 10/21/23 07:20 Pain celecoxib [From Celebrex] AdvReac Unknown Unknown Verified 10/21/23 07:20 Consultations 10/21/23 10:30 Consult Gastroenterology Stat Procedures Performed Operation Date: 10/22/23 07:00 Actual Procedures p Endoscopic Retrograde Cholangiopancreato - Marj Qiu DO Ordered Studies 10/21/23 08:50 [place] cholangiogram OR Routine 10/22/23 13:30 FL ERCP biliary ductal Routine Hospital Course (1) History of cholecystectomy: Patient underwent an elective laparoscopic cholecystectomy with cholangiogram on 10/21/[address] Lorenzo. During the cholangiogram it was noted that the patient had a stone in her common bile duct. A CARI drain was left in place post laparoscopic cholecystectomy. After successful laparoscopic cholecystectomy the patient was admitted to the hospital for care , observation and a gastroenterology consult. She remained on IV antibiotics. The patient underwent an ERCP on 10/22/[address] Qiu and had stones removed from her common bile duct and a biliary stent placed. Her diet was advanced to regular and she was tolerating without nausea and vomiting. Her pain was minimal and controlled. On 10/23/23 she was deemed stable for discharge with her CBC and CMP wnl, VSS, and CARI was removed at bedside. She was instructed to avoid NSAIDs for one week, and a prescription for pain medication and an oral antibiotic was sent to the pharmacy. She verbalized understanding of discharge instructions and follow up appointments. (2) Dilated cbd, acquired: Total Time Total Time Spent Total Time Spent (In Minutes): 30 Discharge Plan Discharge Items Patient Disposition: Home - Self-Care Reason For Visit: Cholelithiasis Discharge Diagnosis: Laparoscopic cholecystectomy ERCP Activity: As commented below Lifting: No more than 10 pounds Bathing Comment: you can shower . No baths or pools for 2 weeks Exercise/Sports: Wait until after follow-up appointment Non-emergency contact: Surgeon Call non-emergency contact if: you have any medication questions, your pain is worsening, your pain is unusual for you, you have a fever, your temperature is above 101.5, your wound has increased redness, your wound has increased drainage and your wound pain has increased Follow-up/Referrals: Francisco Javier Lorenzo MD, FACS [Surgeon] - 10/28/23 11:00 am (call office for a follow up in 1 week) Dayna Beyer MD [Primary Care Provider] - Marj Qiu, [Physician] - (Call office for a follow up ERCP which will need to be completed in 6-8 weeks ) Diet: Regular Addtl Attending Provider Instructions: You may remove your outer surgical dressing on 10/23/23. You will have small white bandages on underneath that are over your incision. You may shower with these on. They will tend to fall off on their own in a 7-10 days. You can remove the gauze and tegaderm bandage where your CARI drain was on 10/25/23. You can replace with a bandage until scabbed over. You had a biliary stent placed. Avoid NSAIDs for one week (ibuprofen, aspirin, etc) You are being sent in a prescriptions for pain medication and antibiotics. Take all of your antibiotics even if you are feeling better. Please call Dr. Qiu's office for a repeat ERCP in 6 to 8 weeks for stent removal. Pending Studies at Discharge: Yes Studies:: surgical pathology Stand-Alone Forms: My [facility] Medications and DC Order Prescriptions: New oxycodone 5 mg tablet 5 - 10 mg PO .[id number] MDD no more than 6 tabs in 24hours PRN (Reason: pain) Qty: 15 0RF Rx Instructions: Take one to two tablets by mouth every 4-6 hours as needed for pain. amoxicillin-pot clavulanate 875-125 mg tablet 1 tab PO Q12H MDD 2 tabs in 24 hours 10 Days Qty: 20 0RF Rx Instructions: Take one tablet by mouth every 12 hours for the next 10 days. Finish entire course of antibiotic. Continued baclofen 10 mg tablet 10 mg PO Q8H PRN (Reason: pain/spasm) Qty: 60 1RF Rx Instructions: take 1/2-1 tablet by mouth as needed for spasm levothyroxine 88 mcg tablet 88 mcg PO QAM Qty: 90 3RF Naphcon-A 0.025-0.3 % drops 1 drp OP UD PRN (Reason: Other) pantoprazole [Protonix] 40 mg tablet,delayed release (DR/EC) 40 mg PO DAILY Qty: 90 3RF metronidazole 0.75 % gel 1 applic topical QAM albuterol sulfate 90 mcg/actuation HFA aerosol inhaler 2 puff inhalation Q6H PRN (Reason: shortness of breath or wheezing) Qty: 8.5 3RF cetirizine [Zyrtec] 10 mg Tablet 10 mg PO QPM cyanocobalamin (vitamin B-12) [Vitamin B-12] 1,000 mcg Tablet 1,000 mcg PO QAM cholecalciferol (vitamin D3) [Vitamin D3] 25 mcg (1,000 unit) capsule 1,000 unit PO QAM fluticasone propionate [Flonase Allergy Relief] 50 mcg/actuation spray,suspension 1 spray Intranasal BID montelukast [Singulair] 10 mg tablet 10 mg PO QAM citalopram [Celexa] 20 mg tablet 20 mg PO HS rosuvastatin 20 mg tablet 20 mg PO HS fenofibrate nanocrystallized [Tricor] 48 mg tablet 48 mg PO QAM fluticasone furoate-vilanterol [Breo Ellipta] 100-25 mcg/dose blister with device 1 inh inhalation QAM Discontinued acetaminophen-codeine 300-30 mg tablet 1 tab PO Q8H PRN (Reason: pain) Qty: 6 0RF Patient Comments: pt states on 10/20/23 her pharmacy is unable to get this medication, currently not taking Discharge Orders: Discharge Order (Routine); Ordered 10/23/23 Ordered By: Lu Marie/Other Patient Handouts: ERCP Admission Data Admit Date/Time: 10/21/23 10:25 Attending Provider: Francisco Javier Lorenzo Admit Provider: Francisco Javier Lorenzo Primary Care Provider: Dayna Beyer Other Providers: Kiel Gautam; Valentín Preciado; Peri Flores; Mikki Quintero; Batool Ortiz; Elayne Carrington; Todd Dolan; Brent Lutz; Marj Qiu; Inga Nguyen; Sandra Nicolas; Judi Faulkner; Isabelle Velasco; Bria Burns; Sue Mcguire; Domenic Winchester; Akira Samson; Galileo Morel; Mary Lou Gentile; Cooper Abraham Jr Other Interventions: Discharge Summary Assessment (RN) Last Done: 10/23/23 12:21 Coding Level of Care Code 92923 IN/OBS DISCH 30 MIN/LESS Diagnoses History of cholecystectomy Z90.49 Dilated cbd, acquired K83.8
== END 2023-10-23 13:46 | disposition home or self-care (01) | DRG 419 ==
LOC: ASU 06:54 → PACUINP 10:25 → 3W 15:02